=== PATIENT | female | born 1995 | race Caucasian/White ===

== ENCOUNTER 2023-01-26 18:10 | Emergency (ER) | payer OTHER, SELFPAY ==
[2023-01-26 18:18] VITALS: BP 110/78; PULSE 106; RESP 18; TEMP 36.9; O2SAT 98; BMI 29.9
--- NOTE | 2023-01-26 19:29 | ED_ITS ---
HPI - Neck Pain/Injury General Chief Complaint: Neck Pain/Injury Stated Complaint: NECK PAIN Time Seen by Provider: 01/26/23 19:29 Source: patient Mode of arrival: Wheelchair Limitations: physical limitation History of Present Illness HPI Narrative: patient states she woke up this AM with pain of her neck and inability to straighten her neck due to pain. No radicular symptoms. Head tilted to the left as position of comfort. No fever or chills. Denies injury or past history of the same MD complaint: Reports neck pain Related Data Allergies Allergy/AdvReac Type Severity Reaction Status Date / Time acyclovir Allergy Severe Hives Verified 01/26/23 18:22 ibuprofen [From Motrin] Allergy Severe Hives Verified 01/26/23 18:22 latex Allergy Severe Hives Verified 01/26/23 18:22 Review of Systems ROS Status of ROS 10 or more systems reviewed and unremarkable except as noted in history and below PFSH PFS Social History Smoking status: Current every day smoker Exam Constitutional Vital Signs - 24 hr 01/26/23 18:18 Temperature 98.5 F Pulse Rate [Monitor] 106 H Respiratory Rate 18 Blood Pressure [Left Arm] 110/78 Pulse Oximetry 98 Oxygen Delivery Method Room Air Common normals: no apparent distress and oriented x3 Other: head tilted down to the left as position of comfort. increased pain with attempt to straighten neck HENMT Common normals: normocephalic, head/scalp atraumatic and hearing grossly normal bilaterally Eye Common normals: PERRL, EOMs intact bilaterally and conjunctivae normal Neck & C-Spine Other: right paracervical and upper thoracic para thoracic muscle tenderness. limited ROM of neck due to pain Respiratory Common normals: normal respiratory effort, no retractions, no use of accessory muscles and clear to auscultation bilaterally Cardio Common normals: no JVD, regular rate, regular rhythm, S1 normal heart sound and S2 normal heart sound GI Common normals: Normal to inspection, nondistended, normoactive bowel sounds present, soft to palpation and non-tender Extremity Common normals: normal to inspection, full ROM, normal capillary refill and no joint enlargement Neuro Common normals: oriented x3, CN's II-XII intact bilaterally, moves all extremities and no focal motor deficits Psych Appearance: grossly normal Course Vital Signs Vital signs: Vital Signs Temperature 98.5 F 01/26/23 18:18 Pulse Rate 106 H 01/26/23 18:18 Respiratory Rate 18 01/26/23 18:18 Blood Pressure 110/78 01/26/23 18:18 Pulse Oximetry 98 01/26/23 18:18 Oxygen Delivery Method Room Air 01/26/23 18:18 Temperature 98.5 F 01/26/23 18:18 Pulse Rate 106 H 01/26/23 18:18 Respiratory Rate 18 01/26/23 18:18 Blood Pressure 110/78 01/26/23 18:18 Pulse Oximetry 98 01/26/23 18:18 Oxygen Delivery Method Room Air 01/26/23 18:18 MDM - Neck Pain/Injury MDM Narrative Medical decision making narrative: patient presents with Torticollis. Woke up this AM with neck pain and head tilted to the left as position of comfort. Treated in the ER and was able to raise her head to midline prior to discharge. Discharged with soft collar and prescription for [place] and Norflex and advised to follow up with her doctor Lab Data Labs: Lab Results 01/26/23 Range/Units 20:05 WBC 8.1 (4.0-11.0) 10^3/uL RBC 5.02 (4.20-5.40) 10^6/uL Hgb 14.3 (12.0-16.0) g/dL Hct 43.2 (36.0-48.0) % MCV 86.1 (81.0-99.0) fL MCH 28.5 (26.7-34.0) pg MCHC 33.1 (29.9-35.2) g/dL RDW 12.5 (11.0-15.0) % Plt Count 192 (150-450) 10^3/uL MPV 10.6 (9.5-13.5) fL Neut % (Auto) 58.8 (43.0-75.0) % Lymph % (Auto) 30.3 (20.5-60.0) % [place] % (Auto) 7.4 (1.7-12.0) % Eos % (Auto) 2.9 (0.9-7.0) % Baso % (Auto) 0.4 (0.2-2.0) % Neut # (Auto) 4.8 (1.4-6.5) 10^3/uL Lymph # (Auto) 2.5 (1.2-3.8) 10^3/uL [place] # (Auto) 0.6 (0.3-0.8) 10^3/uL Eos # (Auto) 0.2 (0.0-0.7) 10^3/uL Baso # (Auto) 0.0 (0.0-0.1) 10^3/uL Abs Immat Gran (auto) 0.02 (0.00-0.03) 10^3/uL Imm/Tot Granulo (auto) 0.2 (0.0-0.5) % ESR 16 (<=20) mm/hr Sodium 140 (136-145) mmol/L Potassium 3.9 (3.5-5.1) mmol/L Chloride 105 (98-107) mmol/L Carbon Dioxide 27.8 (21.0-32.0) mmol/L Anion Gap 11.1 BUN 10.0 (7.0-18.0) mg/dL Creatinine 0.88 (0.55-1.02) mg/dL Est GFR ( Amer) >60 (>=60) Est GFR (Non-Af Amer) >60 (>=60) BUN/Creatinine Ratio 11.4 Glucose 92 (74-106) mg/dL Calcium 9.0 (8.5-10.1) mg/dL C-Reactive Protein <1.0 (<=1.0) mg/dL Discharge Plan Discharge Chief Complaint: Neck Pain/Injury Clinical Impression: Acute torticollis Instructions: Spasmodic Torticollis (ED) Additional Instructions: follow up with your doctor next week Stand Alone Forms: Portal Instructions Referrals: Physician,Non-Staff, MD [Primary Care Provider] - 1 week
[2023-01-26] MEDS: LORAZEPAM 2 MG/ML 1 ML VIAL 1 MG IV (20:04)
[2023-01-26] MEDS: ORPHENADRINE 60 MG/ 2 ML VIAL IV (20:05)
[2023-01-26] MEDS: FENTANYL CITRATE/PF 100 MCG/2 ML VIAL IV (20:05)
[2023-01-26 20:16] LABS: Basophils Percent Auto 0.4 % (0.2-2.0); Eosinophils Absolute Auto 0.2 10^3/uL (0.0-0.7); Eosinophils Percent Auto 2.9 % (0.9-7.0); Hematocrit 43.2 % (36.0-48.0); Hemoglobin 14.3 g/dL (12.0-16.0); Immature Granulocytes Abs Auto 0.02 10^3/uL (0.00-0.03); Immature Granulocytes Pct Auto 0.2 % (0.0-0.5); Lymphocytes Absolute Auto 2.5 10^3/uL (1.2-3.8); Lymphocytes Percent Auto 30.3 % (20.5-60.0); Mean Corpuscular HGB Conc 33.1 g/dL (29.9-35.2); Mean Corpuscular Hemoglobin 28.5 pg (26.7-34.0); Mean Corpuscular Volume 86.1 fL (81.0-99.0); Mean Platelet Volume 10.6 fL (9.5-13.5); Monocytes Absolute Auto 0.6 10^3/uL (0.3-0.8); Monocytes Percent Auto 7.4 % (1.7-12.0); Neutrophils Absolute Auto 4.8 10^3/uL (1.4-6.5); Neutrophils Percent Auto 58.8 % (43.0-75.0); Platelet Count 192 10^3/uL (150-450); Red Blood Count 5.02 10^6/uL (4.20-5.40); Red Cell Distribution Width 12.5 % (11.0-15.0); White Blood Count 8.1 10^3/uL (4.0-11.0)
[2023-01-26 20:23] LABS: Erythrocyte Sedimentation Rate 16 mm/hr (<=20)
[2023-01-26 20:30] LABS: Anion Gap 11.1; BUN Creatinine Ratio 11.4; Carbon Dioxide 27.8 mmol/L (21.0-32.0); Chloride 105 mmol/L (98-107); Estimated GFR (African America >60 (>=60); Estimated GFR (Non-African Ame >60 (>=60); Glucose 92 mg/dL (74-106); Potassium 3.9 mmol/L (3.5-5.1); Sodium 140 mmol/L (136-145)
[2023-01-26 20:33] LABS: C Reactive Protein <1.0 mg/dL (<=1.0)
[2023-01-26] MEDS: HYDROCODONE/ACETAMINOPHEN 5-325 MG TABLET 4 TAB PO (22:12)
[2023-01-26] MEDS: ORPHENADRINE CITRATE 100 MG TABLET.ER PO (22:13)
== END 2023-01-26 22:50 | disposition home or self-care (01) ==
PROVIDERS: Emergency Provider Internal Medicine
DX: M43.6 Torticollis (principal); F17.210 Nicotine dependence, cigarettes, uncomplicated
CPT/HCPCS: 36415; 80048; 85025; 85652; 86140; 96374; 96375; 99284

== ENCOUNTER 2023-03-25 16:00 | Emergency (ER) | payer OTHER, SELFPAY ==
[2023-03-25 16:16] VITALS: BP 119/82; PULSE 139; RESP 18; TEMP 36.8; O2SAT 99; BMI 30.1
--- NOTE | 2023-03-25 17:00 | ED.ABDPAIN1 ---
Documented by User: Ghislaine Medina 03/25/23 21:25 HPI - Abdominal Pain General Chief Complaint: Abdominal Pain Stated Complaint: right side abdominal pain Time Seen by Provider: 03/25/23 16:57 Source: patient Mode of arrival: Wheelchair Limitations: no limitations History of Present Illness HPI narrative: 27 year old female presents to the ED for RLQ pain, N/V. Onset was 3 days ago. Denies fever, chills, urinary sx, diarrhea, injury. Reports previous D and C, tubal ligation surgeries. Rates her pain 10/10 at this time. Denies chance of . MD elicited complaint: Reports abdominal pain Related Data Previous Rx's Medication Instructions Recorded hydrocodone 5 mg-acetaminophen 325 1 tab PO Q8H PRN pain 3 days #9 03/25/23 mg tablet tabs naproxen 500 mg tablet (Naprosyn) 500 mg PO BID PRN pain 5 days #10 03/25/23 tabs Allergies Allergy/AdvReac Type Severity Reaction Status Date / Time acyclovir Allergy Severe Hives Verified 03/25/23 16:16 ibuprofen [From Motrin] Allergy Severe Hives Verified 03/25/23 16:16 latex Allergy Severe Hives Verified 03/25/23 16:16 Review of Systems ROS Constitutional Denies: fever or chills Ears, nose, mouth, and throat Denies: throat pain Cardiovascular Denies: chest pain Respiratory Denies: shortness of breath or cough Gastrointestinal Reports: abdominal pain, nausea and vomiting; Denies: diarrhea or constipation Genitourinary Denies: painful urination, urinary frequency, urinary urgency, vaginal bleeding or vaginal discharge Neurological Reports: headache PFSH PFSH Social History Smoking status: Current every day smoker Exam Constitutional Vital Signs, click to edit/add: Last Vital Signs Temp 98.3 F 03/25/23 16:16 Pulse 95 H 03/25/23 20:48 Resp 16 03/25/23 20:48 BP 122/85 03/25/23 21:29 Pulse Ox 98 03/25/23 20:48 O2 Del Method Room Air 03/25/23 20:48 Common normals: oriented x3 and alert General appearance: cooperative; not comfortable and not ill appearing Orientation/consciousness: Yes awake HENMT Mouth: oral and palatal mucosa normal and lip normal Neck & C-Spine Common normals: supple Chest Chest: symmetrical chest wall rise Respiratory Common normals: normal respiratory effort Effort & inspection: able to speak in complete sentences and symmetric chest movement Cardio Common normals: regular rhythm Rate: tachycardic GI Common normals: soft to palpation Inspection: normal to inspection Auscultation: normoactive bowel sounds Palpation: soft and tender Details: RLQ and suprapubic Extremity Common normals: normal capillary refill Course Vital Signs Vital signs: Vital Signs Temperature 98.3 F 03/25/23 16:16 Pulse Rate 139 H 03/25/23 16:16 Respiratory Rate 18 03/25/23 16:16 Blood Pressure 119/82 03/25/23 16:16 Pulse Oximetry 99 03/25/23 16:16 Oxygen Delivery Method Room Air 03/25/23 16:16 Temperature 98.3 F 03/25/23 16:16 Pulse Rate 95 H 03/25/23 20:48 Respiratory Rate 16 03/25/23 20:48 Blood Pressure 122/85 03/25/23 21:29 Pulse Oximetry 98 03/25/23 20:48 Oxygen Delivery Method Room Air 03/25/23 20:48 MDM - Abdominal Pain MDM Narrative Medical decision making narrative: The patient was given medication with improvement. She was tolerating oral fluids here in the ED. Findings were discussed with the patient. She reported she tolerates Aleve, but not Motrin. OARRS was reviewed. Prescriptions were provided for Naprosyn and norco. She has an [facility] appointment scheduled on 03/27/23. She was encouraged to follow up as scheduled. Return precautions were discussed. Differential Diagnosis Differential diagnosis: Likely abdominal pain, acute appendicitis, calculus of kidney, constipation, gastroenteritis and small bowel obstruction Medical Records Attestation: I reviewed the patient's medical records. Lab Data Attestation: I reviewed the patient's lab results. Labs: Lab Results 03/25/23 03/25/23 Range/Units 17:10 19:05 WBC 5.7 (4.0-11.0) 10^3/uL RBC 5.28 (4.20-5.40) 10^6/uL Hgb 15.1 (12.0-16.0) g/dL Hct 44.9 (36.0-48.0) % MCV 85.0 (81.0-99.0) fL MCH 28.6 (26.7-34.0) pg MCHC 33.6 (29.9-35.2) g/dL RDW 12.5 (11.0-15.0) % Plt Count 180 (150-450) 10^3/uL MPV 10.2 (9.5-13.5) fL Neut % (Auto) 52.1 (43.0-75.0) % Lymph % (Auto) 36.3 (20.5-60.0) % [place] % (Auto) 7.9 (1.7-12.0) % Eos % (Auto) 2.8 (0.9-7.0) % Baso % (Auto) 0.5 (0.2-2.0) % Neut # (Auto) 3.0 (1.4-6.5) 10^3/uL Lymph # (Auto) 2.1 (1.2-3.8) 10^3/uL [place] # (Auto) 0.5 (0.3-0.8) 10^3/uL Eos # (Auto) 0.2 (0.0-0.7) 10^3/uL Baso # (Auto) 0.0 (0.0-0.1) 10^3/uL Abs Immat Gran (auto) 0.02 (0.00-0.03) 10^3/uL Imm/Tot Granulo (auto) 0.4 (0.0-0.5) % Sodium 141 (136-145) mmol/L Potassium 3.7 (3.5-5.1) mmol/L Chloride 105 (98-107) mmol/L Carbon Dioxide 25.1 (21.0-32.0) mmol/L Anion Gap 14.6 BUN 11.0 (7.0-18.0) mg/dL Creatinine 1.01 (0.55-1.02) mg/dL Est GFR ( Amer) >60 (>=60) Est GFR (Non-Af Amer) >60 (>=60) BUN/Creatinine Ratio 10.9 Glucose 89 (74-106) mg/dL Lactate 1.7 (0.4-2.0) mmol/L Calcium 8.5 (8.5-10.1) mg/dL Total Bilirubin 0.2 (0.2-1.0) mg/dL Direct Bilirubin 0.1 (0.0-0.2) mg/dL AST 27 (15-37) U/L ALT 31 (14-59) U/L Alkaline Phosphatase 82 (46-116) U/L Total Protein 7.5 (6.4-8.2) g/dL Albumin 4.0 (3.4-5.0) g/dL Globulin 3.5 g/dL Albumin/Globulin Ratio 1.1 Lipase 173.0 (73.0-393.0) U/L Serum HCG, Qual Negative (NEGATIVE) Urine Color Yellow (YELLOW) Urine Clarity Clear (CLEAR) Urine pH 6.0 (5.0-9.0) Ur Specific [place] <=1.005 A (1.005-1.025) Urine Protein Negative (NEG/TRACE) mg/dL Urine Glucose (UA) Negative (NEGATIVE) mg/dL Urine Ketones Negative (NEGATIVE) mg/dL Urine Occult Blood Negative (NEGATIVE) Urine Nitrite Negative (NEGATIVE) Urine Bilirubin Negative (NEGATIVE) Urine Urobilinogen 0.2 (0.2-1.0) EU/dL Ur Leukocyte Esterase Negative (NEGATIVE) Imaging Data CT scan - abdomen: Attestation: I have reviewed the pertinent imaging results. Radiologist's impression: Procedure: CT abdomen pelvis w con EXAM: CT abdomen pelvis w con HISTORY: RLQ pain COMPARISON: None. TECHNIQUE: Axial CT imaging was performed through the abdomen and pelvis with intravenous contrast. Multiplanar reformats were performed. Dose reduction techniques were achieved by using automated exposure control and/or adjustment of mA and/or kV according to patient size and/or use of iterative reconstruction technique. FINDINGS: Lung bases: Lung bases are clear. No pleural effusion. GI upper: Unremarkable. Liver: Normal size and contour. A subcentimeter low density focus is seen in the anterior segment of the right hepatic lobe. This is too small to accurately assess, but likely is a cyst. Gallbladder: No significant abnormality. No cholelithiasis. Biliary system: No intra or extrahepatic biliary ductal dilatation. Pancreas: Unremarkable. Spleen: Normal size. Adrenal glands: Normal adrenal glands. Kidneys/ureters: Normal contours. No hydronephrosis or visible mass. No nephrolithiasis. Both ureters are normal in caliber and course to the bladder. Vessels: No aneurysm. Retroperitoneum: No lymphadenopathy. Small bowel: No wall thickening or dilatation. Colon: No wall thickening or dilatation. Appendix: Appendix is identified with normal appearance. Peritoneal cavity: No free fluid or pneumoperitoneum. Lower : Unremarkable. Bones: No acute bony abnormality. Soft tissues: No acute finding. Additional findings: None. CT/CT abdomen pelvis w con IMPRESSION: No acute intra-abdominal or pelvic process is identified. The appendix is visualized and is normal in appearance. Electronically authenticated by: Estiven LAMBERT Date: 03/25/2023 19:04 US- pelvis: Attestation: I have reviewed the pertinent imaging results. Radiologist's impression: Procedure: US pelvis transvaginal Initial impression only. US/US pelvis transvaginal IMPRESSION: 1. The ovaries were not visualized bilaterally and therefore the study is nondiagnostic for ovarian torsion. Of note, on the CT the ovaries were somewhat high in location and a follow-up transabdominal ultrasound may be considered to visualize the ovaries. Note is made on CT of 8 probable 13 mm dominant right ovarian follicle. 2. No other significant abnormality. Electronically authenticated by: JOANA RANDLE Date: 03/25/2023 20:24 Discharge Plan Discharge Chief Complaint: Abdominal Pain Clinical Impression: Ovarian cyst, Abdominal pain Patient Disposition: Home, Self-Care Time of Disposition Decision: 21:14 Condition: Good Mode of Transportation: Private Vehicle Prescriptions / Home Meds: New naproxen [Naprosyn] 500 mg tablet 500 mg PO BID PRN (Reason: pain) 5 Days Qty: 10 0RF hydrocodone-acetaminophen 5-325 mg tablet 1 tab PO Q8H PRN (Reason: pain) 3 Days Qty: 9 0RF Instructions: Ovarian Cyst (ED), Abdominal Pain (ED) Additional Instructions: Follow up with your [facility] later this week as scheduled. Return to the ER if your condition worsens. Stand Alone Forms: Portal Instructions Referrals: Physician,Non-Staff, MD [Primary Care Provider] - 1 week Discharge Date/Time: 03/25/23 21:29 Documented by User: Yanni Post MD 03/27/23 08:02 HPI - Abdominal Pain General Chief Complaint: Abdominal Pain Stated Complaint: right side abdominal pain Time Seen by Provider: 03/25/23 16:57 Related Data Previous Rx's Medication Instructions Recorded hydrocodone 5 mg-acetaminophen 325 1 tab PO Q8H PRN pain 3 days #9 03/25/23 mg tablet tabs naproxen 500 mg tablet (Naprosyn) 500 mg PO BID PRN pain 5 days #10 03/25/23 tabs Allergies Allergy/AdvReac Type Severity Reaction Status Date / Time acyclovir Allergy Severe Hives Verified 03/25/23 16:16 ibuprofen [From Motrin] Allergy Severe Hives Verified 03/25/23 16:16 latex Allergy Severe Hives Verified 03/25/23 16:16 PFSH PFSH Social History Smoking status: Current every day smoker Exam Constitutional Vital Signs, click to edit/add: Last Vital Signs Temp 98.3 F 03/25/23 16:16 Pulse 95 H 03/25/23 20:48 Resp 16 03/25/23 20:48 BP 122/85 03/25/23 21:29 Pulse Ox 98 03/25/23 20:48 O2 Del Method Room Air 03/25/23 20:48 Course Vital Signs Vital signs: Vital Signs Temperature 98.3 F 03/25/23 16:16 Pulse Rate 139 H 03/25/23 16:16 Respiratory Rate 18 03/25/23 16:16 Blood Pressure 119/82 03/25/23 16:16 Pulse Oximetry 99 03/25/23 16:16 Oxygen Delivery Method Room Air 03/25/23 16:16 Temperature 98.3 F 03/25/23 16:16 Pulse Rate 95 H 03/25/23 20:48 Respiratory Rate 16 03/25/23 20:48 Blood Pressure 122/85 03/25/23 21:29 Pulse Oximetry 98 03/25/23 20:48 Oxygen Delivery Method Room Air 03/25/23 20:48 MDM - Abdominal Pain MDM Narrative Medical decision making narrative: The patient was given medication with improvement. She was tolerating oral fluids here in the ED. Findings were discussed with the patient. She reported she tolerates Aleve, but not Motrin. OARRS was reviewed. Prescriptions were provided for Naprosyn and norco. She has an [facility] appointment scheduled on 03/27/23. She was encouraged to follow up as scheduled. Return precautions were discussed. Attending physician attestation I have reviewed the mid-level documentation, agree with the documentation, medical decision making and treatment plan as outlined by the mid-level provider. Lab Data Labs: Lab Results 03/25/23 03/25/23 Range/Units 17:10 19:05 WBC 5.7 (4.0-11.0) 10^3/uL RBC 5.28 (4.20-5.40) 10^6/uL Hgb 15.1 (12.0-16.0) g/dL Hct 44.9 (36.0-48.0) % MCV 85.0 (81.0-99.0) fL MCH 28.6 (26.7-34.0) pg MCHC 33.6 (29.9-35.2) g/dL RDW 12.5 (11.0-15.0) % Plt Count 180 (150-450) 10^3/uL MPV 10.2 (9.5-13.5) fL Neut % (Auto) 52.1 (43.0-75.0) % Lymph % (Auto) 36.3 (20.5-60.0) % [place] % (Auto) 7.9 (1.7-12.0) % Eos % (Auto) 2.8 (0.9-7.0) % Baso % (Auto) 0.5 (0.2-2.0) % Neut # (Auto) 3.0 (1.4-6.5) 10^3/uL Lymph # (Auto) 2.1 (1.2-3.8) 10^3/uL [place] # (Auto) 0.5 (0.3-0.8) 10^3/uL Eos # (Auto) 0.2 (0.0-0.7) 10^3/uL Baso # (Auto) 0.0 (0.0-0.1) 10^3/uL Abs Immat Gran (auto) 0.02 (0.00-0.03) 10^3/uL Imm/Tot Granulo (auto) 0.4 (0.0-0.5) % Sodium 141 (136-145) mmol/L Potassium 3.7 (3.5-5.1) mmol/L Chloride 105 (98-107) mmol/L Carbon Dioxide 25.1 (21.0-32.0) mmol/L Anion Gap 14.6 BUN 11.0 (7.0-18.0) mg/dL Creatinine 1.01 (0.55-1.02) mg/dL Est GFR ( Amer) >60 (>=60) Est GFR (Non-Af Amer) >60 (>=60) BUN/Creatinine Ratio 10.9 Glucose 89 (74-106) mg/dL Lactate 1.7 (0.4-2.0) mmol/L Calcium 8.5 (8.5-10.1) mg/dL Total Bilirubin 0.2 (0.2-1.0) mg/dL Direct Bilirubin 0.1 (0.0-0.2) mg/dL AST 27 (15-37) U/L ALT 31 (14-59) U/L Alkaline Phosphatase 82 (46-116) U/L Total Protein 7.5 (6.4-8.2) g/dL Albumin 4.0 (3.4-5.0) g/dL Globulin 3.5 g/dL Albumin/Globulin Ratio 1.1 Lipase 173.0 (73.0-393.0) U/L Serum HCG, Qual Negative (NEGATIVE) Urine Color Yellow (YELLOW) Urine Clarity Clear (CLEAR) Urine pH 6.0 (5.0-9.0) Ur Specific [place] <=1.005 A (1.005-1.025) Urine Protein Negative (NEG/TRACE) mg/dL Urine Glucose (UA) Negative (NEGATIVE) mg/dL Urine Ketones Negative (NEGATIVE) mg/dL Urine Occult Blood Negative (NEGATIVE) Urine Nitrite Negative (NEGATIVE) Urine Bilirubin Negative (NEGATIVE) Urine Urobilinogen 0.2 (0.2-1.0) EU/dL Ur Leukocyte Esterase Negative (NEGATIVE) Discharge Plan Discharge Chief Complaint: Abdominal Pain Clinical Impression: Ovarian cyst, Abdominal pain Patient Disposition: Home, Self-Care Time of Disposition Decision: 21:14 Condition: Good Mode of Transportation: Private Vehicle Prescriptions / Home Meds: New naproxen [Naprosyn] 500 mg tablet 500 mg PO BID PRN (Reason: pain) 5 Days Qty: 10 0RF hydrocodone-acetaminophen 5-325 mg tablet 1 tab PO Q8H PRN (Reason: pain) 3 Days Qty: 9 0RF Instructions: Ovarian Cyst (ED), Abdominal Pain (ED) Additional Instructions: Follow up with your [facility] later this week as scheduled. Return to the ER if your condition worsens. Stand Alone Forms: Portal Instructions Referrals: Physician,Non-Staff, MD [Primary Care Provider] - 1 week Discharge Date/Time: 03/25/23 21:29
[2023-03-25] MEDS: ONDANSETRON PF 4 MG/2 ML VIAL IV (17:09)
[2023-03-25] MEDS: MORPHINE SULFATE 2 MG/ML SYRINGE IV ×2 (17:09→19:23)
[2023-03-25] MEDS: 0.9 % SODIUM CHLORIDE 1,000 ML 1000 ML IV (17:10)
[2023-03-25 17:35] LABS: HCG Qualitative NEGATIVE (NEGATIVE)
[2023-03-25 17:39] LABS: Lactate/Lactic Acid 1.7 mmol/L (0.4-2.0)
[2023-03-25 17:52] LABS: Basophils Percent Auto 0.5 % (0.2-2.0); Eosinophils Absolute Auto 0.2 10^3/uL (0.0-0.7); Eosinophils Percent Auto 2.8 % (0.9-7.0); Hematocrit 44.9 % (36.0-48.0); Hemoglobin 15.1 g/dL (12.0-16.0); Immature Granulocytes Abs Auto 0.02 10^3/uL (0.00-0.03); Immature Granulocytes Pct Auto 0.4 % (0.0-0.5); Lymphocytes Absolute Auto 2.1 10^3/uL (1.2-3.8); Lymphocytes Percent Auto 36.3 % (20.5-60.0); Mean Corpuscular HGB Conc 33.6 g/dL (29.9-35.2); Mean Corpuscular Hemoglobin 28.6 pg (26.7-34.0); Mean Platelet Volume 10.2 fL (9.5-13.5); Monocytes Absolute Auto 0.5 10^3/uL (0.3-0.8); Monocytes Percent Auto 7.9 % (1.7-12.0); Neutrophils Percent Auto 52.1 % (43.0-75.0); Platelet Count 180 10^3/uL (150-450); Red Blood Count 5.28 10^6/uL (4.20-5.40); Red Cell Distribution Width 12.5 % (11.0-15.0); White Blood Count 5.7 10^3/uL (4.0-11.0)
[2023-03-25 17:55] VITALS: BP 124/78; PULSE 107; RESP 18; O2SAT 98
[2023-03-25 18:06] LABS: Alanine Aminotransferase 31 U/L (14-59); Albumin Globulin Ratio 1.1; Alkaline Phosphatase 82 U/L (46-116); Anion Gap 14.6; Aspartate Amino Transferase 27 U/L (15-37); BUN Creatinine Ratio 10.9; Bilirubin Direct 0.1 mg/dL (0.0-0.2); Bilirubin Total 0.2 mg/dL (0.2-1.0); Calcium 8.5 mg/dL (8.5-10.1); Carbon Dioxide 25.1 mmol/L (21.0-32.0); Chloride 105 mmol/L (98-107); Estimated GFR (African America >60 (>=60); Estimated GFR (Non-African Ame >60 (>=60); Globulin 3.5 g/dL; Glucose 89 mg/dL (74-106); Potassium 3.7 mmol/L (3.5-5.1); Sodium 141 mmol/L (136-145); Total Protein 7.5 g/dL (6.4-8.2)
--- NOTE | 2023-03-25 18:26 | CT_ITS ---
The [address] [address] Patient Name: SARAH GARCIA MRN: [id number] date: 1995 Sex: F Assigned Patient Location: ER Current Patient Location: ER Accession/Order Number: [id number] Exam Date: 03/25/2023 18:16 Report Date: 03/25/2023 19:04 At the request of: RAMANA CAMPUZANO Procedure: CT abdomen pelvis w con EXAM: CT abdomen pelvis w con HISTORY: RLQ pain COMPARISON: None. TECHNIQUE: Axial CT imaging was performed through the abdomen and pelvis with intravenous contrast. Multiplanar reformats were performed. Dose reduction techniques were achieved by using automated exposure control and/or adjustment of mA and/or kV according to patient size and/or use of iterative reconstruction technique. FINDINGS: Lung bases: Lung bases are clear. No pleural effusion. GI upper: Unremarkable. Liver: Normal size and contour. A subcentimeter low density focus is seen in the anterior segment of the right hepatic lobe. This is too small to accurately assess, but likely is a cyst. Gallbladder: No significant abnormality. No cholelithiasis. Biliary system: No intra or extrahepatic biliary ductal dilatation. Pancreas: Unremarkable. Spleen: Normal size. Adrenal glands: Normal adrenal glands. Kidneys/ureters: Normal contours. No hydronephrosis or visible mass. No nephrolithiasis. Both ureters are normal in caliber and course to the bladder. Vessels: No aneurysm. Retroperitoneum: No lymphadenopathy. Small bowel: No wall thickening or dilatation. Colon: No wall thickening or dilatation. Appendix: Appendix is identified with normal appearance. Peritoneal cavity: No free fluid or pneumoperitoneum. Lower : Unremarkable. Bones: No acute bony abnormality. Soft tissues: No acute finding. Additional findings: None. CT/CT abdomen pelvis w con IMPRESSION: No acute intra-abdominal or pelvic process is identified. The appendix is visualized and is normal in appearance. Electronically authenticated by: Estiven LAMBERT Date: 03/25/2023 19:04
--- NOTE | 2023-03-25 19:10 | US_ITS ---
The [address] [address] Patient Name: SARAH GARCIA MRN: [id number] date: 1995 Sex: F Assigned Patient Location: ER Current Patient Location: ER Accession/Order Number: [id number] Exam Date: 03/25/2023 19:20 Report Date: 03/25/2023 20:31 At the request of: RAMANA CAMPUZANO Procedure: US pelvis transvaginal EXAM: US pelvis transvaginal HISTORY: R/o torsion, acute right lower quadrant pain for 3 days, nausea and vomiting. COMPARISON: CT abdomen and pelvis 03/25/2023. TECHNIQUE: Transvaginal ultrasound was performed of the pelvis. FINDINGS: The uterus measures 6.8 x 3.4 x 4.7 cm in size and appears unremarkable. Endometrium has normal thickness at 4 mm. A small nabothian cyst is seen within the cervix. The ovaries were not visualized bilaterally. No free fluid is seen. US/US pelvis transvaginal IMPRESSION: 1. The ovaries were not visualized bilaterally and therefore the study is nondiagnostic for ovarian torsion. Of note, on the CT the ovaries were somewhat high in location and a follow-up transabdominal ultrasound may be considered to visualize the ovaries. Note is made on the CT of a probable 13 mm dominant right ovarian follicle. 2. No other significant abnormality. Electronically authenticated by: JOANA RANDLE Date: 03/25/2023 20:31
[2023-03-25 19:17] LABS: Bilirubin Urine NEGATIVE (NEGATIVE); Blood Urine NEGATIVE (NEGATIVE); Clarity Urine CLEAR (CLEAR); Color Urine YELLOW (YELLOW); Glucose Urine UA NEGATIVE (NEGATIVE); Ketones Urine NEGATIVE (NEGATIVE); Leukocyte Esterase Urine NEGATIVE (NEGATIVE); Nitrite Urine NEGATIVE (NEGATIVE); Protein Urine NEGATIVE (NEG/TRACE); Specific Gravity Urine <=1.005 (1.005-1.025); Urobilinogen Urine 0.2 EU/dL (0.2-1.0)
[2023-03-25 19:19] LABS: Urine Microscopic Indicated NO
[2023-03-25 20:48] VITALS: BP 128/86; PULSE 95; RESP 16; O2SAT 98
[2023-03-25] MEDS: KETOROLAC TROMETHAMINE 30 MG/ML VIAL 15 MG IVP (20:55)
[2023-03-25 21:29] VITALS: BP 122/85
== END 2023-03-25 21:29 | disposition home or self-care (01) ==
PROVIDERS: Emergency Provider Emergency Medicine
DX: N83.209 Unspecified ovarian cyst, unspecified side (principal); R10.9 Unspecified abdominal pain; F17.210 Nicotine dependence, cigarettes, uncomplicated
CPT/HCPCS: 36415; 74177; 76830; 80053; 80076; 81003; 82248; 83605; 83690; 84703; 85025; 96361; 96374; 96375; 96376; 99285; Q9967

== ENCOUNTER 2023-09-28 14:20 | Emergency (ER) | payer OTHER, SELFPAY ==
[2023-09-28 14:25] VITALS: BP 137/83; PULSE 88; RESP 18; TEMP 37; O2SAT 98; BMI 27.6
--- NOTE | 2023-09-28 15:12 | ED.SKABFB1 ---
HPI - Skin/Abscess/Foreign Bdy General Chief complaint: Skin/Abscess/Foreign Body Stated complaint: ITCHINESS/BLOTCHY SPOTS L SIDE Time Seen by Provider: 09/28/23 14:26 Source: patient Mode of arrival: walk-in History of Present Illness HPI narrative: 27-year-old female presents for painful rash. Its on her left lower abdomen near her thigh. It has been there for several days. It started by itching and then the rash came out and it is a gsio-raq-spbjvqm and burning pain. She has never had this before. Its only in a localized area, no where else on her body. No use of new detergents or soaps and she has not been on any new medications. Its continuous. Related Data Previous Rx's Medication Instructions Recorded hydrocodone 5 mg-acetaminophen 325 1 tab PO Q6H PRN pain 5 days #20 09/28/23 mg tablet tabs lidocaine 5 % topical patch 1 patch topical DAILY PRN pain #15 09/28/23 (Lidoderm) ea Allergies Allergy/AdvReac Type Severity Reaction Status Date / Time acyclovir Allergy Severe Hives Verified 03/25/23 16:16 ibuprofen [From Motrin] Allergy Severe Hives Verified 03/25/23 16:16 latex Allergy Severe Hives Verified 03/25/23 16:16 Review of Systems ROS Narrative A ten point review of systems is negative except as noted above. PFSH PFS Social History Smoking status: Current every day smoker Exam Narrative Exam Narrative: Nurses note and vital signs reviewed and patient is not hypoxic. General: The patient appears well and in no apparent distress. Patient is resting comfortably on cart. Skin: Warm, dry, no pallor noted. There is erythematous raised rash on the left side in the L1 distribution. It is nowhere else on her body. No open area present. Head: Normocephalic, atraumatic Eye: Normal conjunctiva, no drainage Ears, Nose, Mouth, and Throat: oral mucosa is moist. Nares patent. Cardiovascular: Regular Rate and Rhythm Respiratory: Patient is in no distress, no accessory muscle use, lungs are clear to auscultation, no wheezing, rales or rhonchi Back: non-tender GI: Soft and nontender Musculoskeletal: The patient has no evidence of calf tenderness, no pitting edema, symmetrical pulses noted bilaterally Neurological: A&O, normal speech Psychiatric: Cooperative Constitutional Vital Signs, click to edit/add: Last Vital Signs Temp 98.6 F 09/28/23 14:25 Pulse 88 09/28/23 14:25 Resp 18 09/28/23 14:25 BP 137/83 09/28/23 14:25 Pulse Ox 98 09/28/23 14:25 O2 Del Method Room Air 09/28/23 14:25 Course Vital Signs Vital signs: Vital Signs Temperature 98.6 F 09/28/23 14:25 Pulse Rate 88 09/28/23 14:25 Respiratory Rate 18 09/28/23 14:25 Blood Pressure 137/83 09/28/23 14:25 Pulse Oximetry 98 09/28/23 14:25 Oxygen Delivery Method Room Air 09/28/23 14:25 Temperature 98.6 F 09/28/23 14:25 Pulse Rate 88 09/28/23 14:25 Respiratory Rate 18 09/28/23 14:25 Blood Pressure 137/83 09/28/23 14:25 Pulse Oximetry 98 09/28/23 14:25 Oxygen Delivery Method Room Air 09/28/23 14:25 MDM - Skin/Abscess/Foreign Bdy MDM Narrative Medical decision making narrative: My clinical impression is that the patient has shingles. She is allergic to Zovirax and does not want to take any related medications such as Famvir or Valtrex. She had hives all over her body when she took Zovirax previously. Treatment diagnosis and follow-up were discussed with the patient. She will be prescribed pain medication. Differential Diagnosis Differential diagnosis: Likely abscess of skin or subcutaneous tissue, urticaria, herpes zoster, cellulitis, insect bites and contact dermatitis Discharge Plan Discharge Chief Complaint: Skin/Abscess/Foreign Body Clinical Impression: Herpes zoster Patient Disposition: Home, Self-Care Time of Disposition Decision: 15:07 Condition: Good Mode of Transportation: Private Vehicle Prescriptions / Home Meds: New lidocaine [Lidoderm] 5 % adhesive patch,medicated 1 patch topical DAILY PRN (Reason: pain) Qty: 15 0RF Rx Instructions: leave near most painful area for up to 12 hrs; do not apply over the rash hydrocodone-acetaminophen 5-325 mg tablet 1 tab PO Q6H PRN (Reason: pain) 5 Days Qty: 20 0RF Instructions: Shingles (ED) Stand Alone Forms: Portal Instructions Referrals: Physician,Non-Staff, [Primary Care Provider] - 1 week
== END 2023-09-28 15:16 | disposition home or self-care (01) ==
PROVIDERS: Emergency Provider Emergency Medicine
DX: B02.9 Zoster without complications (principal); F17.210 Nicotine dependence, cigarettes, uncomplicated
CPT/HCPCS: 99284

== ENCOUNTER 2024-06-11 16:57 | Emergency (ER) | payer SELFPAY ==
[2024-06-11 17:02] VITALS: BP 177/108; PULSE 107; TEMP 36.8; O2SAT 100; BMI 33.0
--- NOTE | 2024-06-11 17:24 | CT_ITS ---
[address] [address] Patient Name: SARAH GARCIA MRN: [id number] date: 1995 Sex: F Assigned Patient Location: ER Current Patient Location: ER Accession/Order Number: [id number] Exam Date: 06/11/2024 18:10 Report Date: 06/11/2024 20:24 At the request of: DEMETRIO ARTEAGA Procedure: CT abdomen pelvis w con Indication: Right lower quadrant pain. Nausea. Vomiting. Fever. Comparison: 03/25/2023 exam Procedure: Axial images were made from the diaphragms through the symphysis pubis. No oral contrast was given prior to scanning. 100 mL Omnipaque 300 Intravenous contrast was given. Dose reduction techniques were achieved by using automated exposure control and/or adjustment of mA and/or kV according to patient size and/or use of iterative reconstruction technique. Findings: Liver/Biliary System: A 9 mm hepatic cyst. No liver masses. No intra or extrahepatic biliary dilatation. No gallstones or cholecystitis. Pancreas/Spleen: No evidence of acute pancreatitis. Pancreatic duct is not dilated. No pancreatic masses. No splenomegaly or splenic lesions. Kidneys/Adrenals: Normal symmetrical nephrograms. No renal masses. No renal or ureteral stones are seen. No hydronephrosis or hydroureter bilaterally. No adrenal nodules. Aorta/Vessels: No evidence of aortic aneurysm. Patent IVC, renal veins, hepatic veins and portal venous system. Bowel/Fluid/Nodes: No bowel dilatation or bowel wall thickening. No evidence of bowel obstruction. Normal appendix. No ascites or fluid collections. No adenopathy. Lung bases: Clear. Other findings: No aggressive osseous lesions are seen. Pelvis: No pelvic masses or adenopathy. Unremarkable bladder. Small amount of free fluid in cul-de-sac, most likely physiological. A 1.9 cm right ovarian cyst, probably follicular cyst. Other Findings: No aggressive osseous lesions are seen. CT/CT abdomen pelvis w con Impression: 1. No evidence of acute abdominal or pelvic process. No CT findings to explain patient's abdominal pain. 2. Normal appendix. 3. A 9 mm hepatic cyst. A 1.9 cm right ovarian cyst, probably follicular cyst. Small amount of free fluid in cul-de-sac, probably physiological. Electronically authenticated by: GREGOR HENDRICKSON Date: 06/11/2024 20:24
--- NOTE | 2024-06-11 17:29 | ED.GENADUL1 ---
HPI HPI - General Adult General Chief complaint: Abdominal Pain Stated complaint: RIGHT ABDOMINAL PAIN, VOMITTING, NAUSEA, FEVER Time Seen by Provider: 06/11/24 17:01 Source: patient Mode of arrival: walk-in Limitations: no limitations History of Present Illness HPI narrative: Patient is a 28-year-old female who presents to the emergency department for evaluation of right lower quadrant pain present for the last 3 days. She denies any pain radiation although she feels some pain in the umbilicus as well. She reports intermittent fevers as high as 101.3 Fahrenheit today. She took Tylenol last at 2 PM. She states she is urinating without difficulty but today is feeling pressure with urination. She denies any cough or upper respiratory symptoms. No diarrhea. She reports multiple episodes of nausea and vomiting over the last 3 days. She has had a previous hysterectomy. She last ate at 9 AM. Related Data Previous Rx's ?Medication ?Instructions ?Recorded hydrocodone 5 mg-acetaminophen 325 1 tab PO Q6H PRN pain 5 days #20 09/28/23 mg tablet tabs lidocaine 5 % topical patch 1 patch topical DAILY PRN pain #15 09/28/23 (Lidoderm) ea ciprofloxacin HCl 500 mg tablet 500 mg PO Q12H #14 tabs 06/11/24 hydrocodone 5 mg-acetaminophen 325 1 tab PO Q6H PRN pain 2 days #8 06/11/24 mg tablet tabs ondansetron 4 mg disintegrating 4 mg PO Q6H PRN nausea and 06/11/24 tablet vomiting #12 tabs promethazine 25 mg tablet 25 mg PO Q6H PRN nausea and 06/11/24 vomiting #12 tabs Allergies Allergy/AdvReac Type Severity Reaction Status Date / Time acyclovir Allergy Severe Hives Verified 03/25/23 16:16 ibuprofen (From Motrin) Allergy Severe Hives Verified 03/25/23 16:16 latex Allergy Severe Hives Verified 03/25/23 16:16 Opioid HPI Opioid Management Most Recent Opioid Data: Last Pain Scale 7 06/11/24 18:39 06/11/24 Last OCT Pain Assessment 06/11/24 18:39 Review of Systems ROS Constitutional Reports: fever and chills Ears, nose, mouth, and throat Denies: throat pain or nasal congestion Cardiovascular Denies: chest pain Respiratory Denies: shortness of breath Gastrointestinal Reports: abdominal pain, nausea and vomiting; Denies: constipation Genitourinary Denies: painful urination Musculoskeletal Denies: back pain or neck pain Integumentary/Breast Denies: rash Neurological Denies: numbness in extremities or weakness in extremities Hematologic/Lymphatic Denies: easy bruising or easy bleeding [facility] Social History Smoking status: Current every day smoker Exam Narrative Exam Narrative: Gen.: Awake, alert, in no distress Head: Normocephalic, atraumatic ENT: Moist mucous membranes Respiratory: No respiratory distress, lungs clear bilaterally Cardio: Regular rate and rhythm Gastrointestinal: Abdomen is soft, tender to palpation in the right lower quadrant with voluntary guarding Extremities: Moves extremities equally Back: No CVA or flank tenderness Psych: Normal mood and affect Neuro: No focal neuro deficit Skin: Warm, dry, intact Constitutional Vital Signs, click to edit/add: Last Vital Signs Temp 98.2 F 06/11/24 17:02 Pulse 97 H 06/11/24 18:42 Resp 18 06/11/24 18:42 BP 145/82 H 06/11/24 20:08 Pulse Ox 99 06/11/24 18:42 O2 Del Method Room Air 06/11/24 17:02 Course Vital Signs Vital signs: Vital Signs Temperature 98.2 F 06/11/24 17:02 Pulse Rate 107 H 06/11/24 17:02 Respiratory Rate 20 06/11/24 17:02 Blood Pressure 177/108 H 06/11/24 17:02 Pulse Oximetry 100 06/11/24 17:02 Oxygen Delivery Method Room Air 06/11/24 17:02 Temperature 98.2 F 06/11/24 17:02 Pulse Rate 97 H 06/11/24 18:42 Respiratory Rate 18 06/11/24 18:42 Blood Pressure 145/82 H 06/11/24 20:08 Pulse Oximetry 99 06/11/24 18:42 Oxygen Delivery Method Room Air 06/11/24 17:02 Medical Decision Making MDM Narrative Medical decision making narrative: Patient medicated with IV fluids, Dilaudid, Zofran. She can had continued pain however the nausea improved, additional morphine was given with pain control. On my reevaluation, the patient is holding her emesis basin although she has not vomited while in the ER. Additional Zofran was given. Labs show mild leukocytosis and contaminated urinary tract infection. CT with normal appendix and small right ovarian cyst. Abdomen is soft and benign in the ER, no peritoneal findings. She is ambulatory, no pain out of proportion on exam prior to discharge. she is hemodynamically stable with unremarkable vital signs She was given Cipro, Hatley, Zofran, Phenergan for home. Follow-up PCP and return to the ER if symptoms change or worsen SUPERVISED APC VISIT, PHYSICIAN ATTESTATION: Based on the medical record the care appears appropriate. ? Medical Records Medical records reviewed: Yes I reviewed the patient's medical records Lab Data Lab results reviewed: Yes I reviewed the patient's lab results Labs: Lab Results 06/11/24 06/11/24 Range/Units 17:11 17:16 WBC 8.0 (4.0-11.0) 10^3/uL RBC 5.03 (4.20-5.40) 10^6/uL Hgb 14.3 (12.0-16.0) g/dL Hct 42.9 (36.0-48.0) % MCV 85.3 (81.0-99.0) fL MCH 28.4 (26.7-34.0) pg MCHC 33.3 (29.9-35.2) g/dL RDW 12.5 (11.0-15.0) % Plt Count 220 (150-450) 10^3/uL MPV 10.7 (9.5-13.5) fL Neut % (Auto) 60.5 (43.0-75.0) % Lymph % (Auto) 30.6 (20.5-60.0) % [place] % (Auto) 6.3 (1.7-12.0) % Eos % (Auto) 1.8 (0.9-7.0) % Baso % (Auto) 0.5 (0.2-2.0) % Neut # (Auto) 4.8 (1.4-6.5) 10^3/uL Lymph # (Auto) 2.4 (1.2-3.8) 10^3/uL [place] # (Auto) 0.5 (0.3-0.8) 10^3/uL Eos # (Auto) 0.1 (0.0-0.7) 10^3/uL Baso # (Auto) 0.0 (0.0-0.1) 10^3/uL Abs Immat Gran (auto) 0.02 (0.00-0.03) 10^3/uL Imm/Tot Granulo (auto) 0.3 (0.0-0.5) % Sodium 141 (136-145) mmol/L Potassium 3.7 (3.5-5.1) mmol/L Chloride 104 (98-107) mmol/L Carbon Dioxide 24.9 (21.0-32.0) mmol/L Anion Gap 15.8 BUN 9.0 (7.0-18.0) mg/dL Creatinine 1.12 H (0.55-1.02) mg/dL Est GFR ( Amer) >60 (>=60 mL/min/1.73m^2) Est GFR (Non-Af Amer) 57 L (>=60 mL/min/1.73m^2) BUN/Creatinine Ratio 8.0 Glucose 97 (74-106) mg/dL Lactate 1.3 (0.4-2.0) mmol/L Calcium 9.4 (8.5-10.1) mg/dL Total Bilirubin 0.3 (0.2-1.0) mg/dL AST 18 (15-37) U/L ALT 24 (14-59) U/L Alkaline Phosphatase 85 (46-116) U/L Total Protein 7.5 (6.4-8.2) g/dL Albumin 3.8 (3.4-5.0) g/dL Globulin 3.7 g/dL Albumin/Globulin Ratio 1.0 Lipase 57.0 (16.0-77.0) U/L Urine Color Lt. yellow (YELLOW) Urine Clarity Sl cloudy (CLEAR) Urine pH 7.0 (5.0-9.0) Ur Specific [place] 1.020 (1.005-1.025) Urine Protein Negative (NEG/TRACE) mg/dL Urine Glucose (UA) Negative (NEGATIVE) mg/dL Urine Ketones Negative (NEGATIVE) mg/dL Urine Occult Blood Negative (NEGATIVE) Urine Nitrite Negative (NEGATIVE) Urine Bilirubin Negative (NEGATIVE) Urine Urobilinogen 2.0 A (0.2-1.0) EU/dL Ur Leukocyte Esterase Trace A (NEGATIVE) Urine RBC 0-2 (0-2) #/HPF Urine WBC 5-10 A (NONE SEEN) #/HPF Ur Squamous Epith Cells Many A (NONE/RARE) #/LPF Urine Crystals None seen (None Seen) #/HPF Urine Bacteria Moderate A (NONE SEEN) #/HPF Urine Casts None seen (NONE SEEN) #/LPF Urine Mucus Trace A (NONE SEEN) Ur Culture Indicated? Yes Imaging Data CT scan - abdomen: Attestation: I have reviewed the pertinent imaging results. Radiologist's impression: ITS Impressions Abdomen/Pelvis CT 06/11/24 17:24 Impression: 1. No evidence of acute abdominal or pelvic process. No CT findings to explain patient's abdominal pain. 2. Normal appendix. 3. A 9 mm hepatic cyst. A 1.9 cm right ovarian cyst, probably follicular cyst. Small amount of free fluid in cul-de-sac, probably physiological. Electronically authenticated by: GREGOR HENDRICKSON Date: 06/11/2024 20:24 Discharge Plan Discharge Chief Complaint: Abdominal Pain Clinical Impression: UTI (urinary tract infection), Ovarian cyst, Abdominal pain Patient Disposition: Home, Self-Care Time of Disposition Decision: 20:30 Condition: Good Prescriptions / Home Meds: New hydrocodone-acetaminophen 5-325 mg tablet 1 tab PO Q6H PRN (Reason: pain) 2 Days Qty: 8 0RF Rx Instructions: DX: R10.9 ciprofloxacin HCl 500 mg tablet 500 mg PO Q12H Qty: 14 0RF promethazine 25 mg tablet 25 mg PO Q6H PRN (Reason: nausea and vomiting) Qty: 12 0RF ondansetron 4 mg tablet,disintegrating 4 mg PO Q6H PRN (Reason: nausea and vomiting) Qty: 12 0RF No Action lidocaine [Lidoderm] 5 % adhesive patch,medicated 1 patch topical DAILY PRN (Reason: pain) Qty: 15 0RF Rx Instructions: leave near most painful area for up to 12 hrs; do not apply over the rash hydrocodone-acetaminophen 5-325 mg tablet 1 tab PO Q6H PRN (Reason: pain) 5 Days Qty: 20 0RF Print Language: Latvian Instructions: Ovarian Cyst (ED), Urinary Tract Infection in Women (ED), Acute Abdominal Pain (ED) Referrals: Physician,Non-Staff, MD [Primary Care Provider] - 1 week Discharge Date/Time: 06/11/24 20:52
[2024-06-11 17:37] LABS: Basophils Percent Auto 0.5 % (0.2-2.0); Eosinophils Absolute Auto 0.1 10^3/uL (0.0-0.7); Eosinophils Percent Auto 1.8 % (0.9-7.0); Hematocrit 42.9 % (36.0-48.0); Hemoglobin 14.3 g/dL (12.0-16.0); Immature Granulocytes Abs Auto 0.02 10^3/uL (0.00-0.03); Immature Granulocytes Pct Auto 0.3 % (0.0-0.5); Lymphocytes Absolute Auto 2.4 10^3/uL (1.2-3.8); Lymphocytes Percent Auto 30.6 % (20.5-60.0); Mean Corpuscular HGB Conc 33.3 g/dL (29.9-35.2); Mean Corpuscular Hemoglobin 28.4 pg (26.7-34.0); Mean Corpuscular Volume 85.3 fL (81.0-99.0); Mean Platelet Volume 10.7 fL (9.5-13.5); Monocytes Absolute Auto 0.5 10^3/uL (0.3-0.8); Monocytes Percent Auto 6.3 % (1.7-12.0); Neutrophils Absolute Auto 4.8 10^3/uL (1.4-6.5); Neutrophils Percent Auto 60.5 % (43.0-75.0); Platelet Count 220 10^3/uL (150-450); Red Blood Count 5.03 10^6/uL (4.20-5.40); Red Cell Distribution Width 12.5 % (11.0-15.0)
[2024-06-11 17:38] LABS: Bilirubin Urine NEGATIVE (NEGATIVE); Blood Urine NEGATIVE (NEGATIVE); Clarity Urine SL CLOUDY (CLEAR); Color Urine LT. YELLOW (YELLOW); Glucose Urine UA NEGATIVE (NEGATIVE); Ketones Urine NEGATIVE (NEGATIVE); Leukocyte Esterase Urine TRACE (NEGATIVE); Nitrite Urine NEGATIVE (NEGATIVE); Protein Urine NEGATIVE (NEG/TRACE)
[2024-06-11] MEDS: HYDROMORPHONE HCL 1 MG/ML CARTRIDGE IV (17:41)
[2024-06-11] MEDS: ONDANSETRON PF 4 MG/2 ML VIAL IV ×2 (17:41→20:30)
[2024-06-11] MEDS: 0.9 % SODIUM CHLORIDE 1,000 ML 999 ML IV (17:41)
[2024-06-11 17:42] LABS: Urine Microscopic Indicated YES
[2024-06-11 17:51] LABS: Bacteria Urine MODERATE #/HPF (NONE SEEN); Mucus Urine TRACE (NONE SEEN); RBC Urine 0-2 #/HPF (0-2); Squamous Epithelial Cell Urine MANY #/LPF (NONE/RARE)
[2024-06-11 17:52] LABS: Cast Seen? NONE SEEN #/LPF (NONE SEEN); Crystals Seen? None Seen #/HPF (None Seen); Urine Culture Indicated YES
[2024-06-11 17:56] LABS: Lactate/Lactic Acid 1.3 mmol/L (0.4-2.0)
[2024-06-11 18:02] LABS: Alanine Aminotransferase 24 U/L (14-59); Albumin Level 3.8 g/dL (3.4-5.0); Alkaline Phosphatase 85 U/L (46-116); Anion Gap 15.8; Aspartate Amino Transferase 18 U/L (15-37); Bilirubin Total 0.3 mg/dL (0.2-1.0); Calcium 9.4 mg/dL (8.5-10.1); Carbon Dioxide 24.9 mmol/L (21.0-32.0); Chloride 104 mmol/L (98-107); Estimated GFR (African America >60 (>=60 mL/min/1.73m^2); Estimated GFR (Non-African Ame 57 (>=60 mL/min/1.73m^2); Globulin 3.7 g/dL; Glucose 97 mg/dL (74-106); Potassium 3.7 mmol/L (3.5-5.1); Sodium 141 mmol/L (136-145); Total Protein 7.5 g/dL (6.4-8.2)
[2024-06-11] MEDS: MORPHINE SULFATE 4 MG/ML VIAL IV (18:39)
[2024-06-11 18:42] VITALS: BP 158/97; PULSE 97; O2SAT 99
[2024-06-11 20:08] VITALS: BP 145/82
== END 2024-06-11 20:52 | disposition home or self-care (01) ==
PROVIDERS: Physician Assistant; Emergency Provider Emergency Medicine Emergency Medical Services
DX: N39.0 Urinary tract infection, site not specified (principal); N83.201 Unspecified ovarian cyst, right side; R10.31 Right lower quadrant pain; Z90.710 Acquired absence of both cervix and uterus
CPT/HCPCS: 36415; 74177; 80053; 81001; 83605; 83690; 84703; 85025; 87086; 96361; 96374; 96375; 96376; 99285; J1171; J2270; J2405; Q9967

== ENCOUNTER 2025-04-01 17:31 | Emergency (ER) | payer SELFPAY ==
[2025-04-01 17:41] VITALS: BP 163/100; PULSE 101; TEMP 37.2; O2SAT 99; BMI 32.9
--- OUTSIDE RECORDS SUMMARY | 2025-04-01 17:43 | XMS_ITS | Clinical Summary ---
Author Organization [employer] tem Address [id number] [place] [id number] Care Team Providers Care Vending Machine Attendant Name Role Phone Shola Salcedo DO Primary Care Provider [phone] Allergies Active Allergy Reactions Criticality Noted Date Comments Acyclovir Hives 03/03/2013 Latex Rash Low 01/10/2016 itching Ibuprofen Hives 02/25/2013 Medications naproxen (NAPROSYN) 500 mg tablet Take 1 tablet (500 mg total) by mouth 2 (two) times a day with meals. 60 tablet 2 07/14/20 Active acetaminophen (TYLENOL EXTRA STRENGTH) 500 mg tablet Take 2 tablets (1,000 mg total) by mouth every 8 (eight) hours. 30 tablet 2 06/27/20 Active Additional Information Patient not taking.Reported on 08/14/2023 docusate sodium (COLACE) 100 mg capsule Take 1 capsule (100 mg total) by mouth in the morning and 1 capsule (100 mg total) before bedtime. 10 capsule 06/27/20 Active Additional Information Patient not taking.Reported on 08/14/2023 acetaminophen (TYLENOL EXTRA STRENGTH) 500 mg tablet Take 2 tablets (1,000 mg total) by mouth every 8 (eight) hours. 30 tablet 2 07/01/20 Active Additional Information Patient not taking.Reported on 08/14/2023 naproxen (NAPROSYN) 250 mg tablet Take 1 tablet (250 mg total) by mouth every 8 (eight) hours. 30 tablet 2 07/01/20 Active Additional Information Patient not taking.Reported on 08/14/2023 gabapentin (NEURONTIN) 300 mg capsuleIndications :Post-op pain Take 1 capsule (300 mg total) by mouth 3 (three) times a day. 30 capsule 07/01/20 Active ondansetron ODT (ZOFRAN ODT) 4 mg disintegrating tablet Dissolve 1 tablet (4 mg total) on tongue every 8 (eight) hours as needed for nausea or vomiting. 20 tablet 07/01/20 Active Additional Information Patient not taking.Reported on 08/14/2023 oxybutynin (DITROPAN) 5 mg tabletIndications: bladder hyperactivity Take 1 tablet (5 mg total) by mouth 2 (two) times a day as needed (bladder spasms) Indications: overactive bladder. 30 tablet 07/01/20 Active Additional Information Patient not taking.Reported on 08/14/2023 polyethylene glycol (GLYCOLAX) 17 gram packet Take 17 g by mouth in the morning. 28 packet 07/02/20 Active Additional Information Patient not taking.Reported on 08/14/2023 docusate sodium (COLACE) 100 mg capsule Take 1 capsule (100 mg total) by mouth in the morning and 1 capsule (100 mg total) before bedtime. 10 capsule 07/01/20 Active Additional Information Patient not taking.Reported on 08/14/2023 cyclobenzaprine (FLEXERIL) 10 mg tabletIndications: Post-op pain Take 1 tablet (10 mg total) by mouth every 8 (eight) hours as needed for muscle spasms. 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 She is supposed to be on Xarelto, but she does not take it because it makes her sick. Hx pulmonary embolism 09/22/2018 Overview (09/22/2018): 2016 or 2017 after delivery of one of her children, unsure which year. Smoker 09/22/2018 Family History Medical History Relation Name Comments Diabetes Maternal Grandfather Hearing loss Maternal Grandfather Mental illness Maternal Grandfather Skin cancer Maternal Grandfather Breast cancer Maternal Grandmother COPD Maternal Grandmother Hearing loss Maternal Grandmother Ovarian cancer Maternal Grandmother Polycystic ovary syndrome Mother Kidney cancer Paternal Grandmother Lung cancer Paternal Grandmother Colon cancer Neg Hx Pancreatic cancer Neg Hx Prostate cancer Neg Hx Relation Name Status Comments Father Maternal Grandfather Maternal Grandmother age 25 ovarian vsyflq2ron. later breast ca diagnosis Mother Paternal Grandmother Social History Tobacco Use Types Packs/Day Years Used Date Smoking Tobacco: Former Cigarettes 0.5 15 1 08/20/2007 - 06/20/2023 Smokeless Tobacco: Never Alcohol Use Standard Drinks/Week Comments Not Currently 0 (1 standard drink = 0.6 oz pur e alcohol) PHQ-2 Answer Date Recorded Total Score 8 03/06/2023 Housing Instability Answer Date Recorde d Are you worried or concerned that in the next two months you may not have stable housing that you own, rent or stay in as a part of a household? No 07/01/2023 Childcare Answer Date Recorded Childcare Unknown 01/21/2019 Employment Answer Date Recorded Employment Unknown 01/21/2019 Hunger Screening Answer Date Recorded Within the past 12 months we worried whether our food would run out before we got money to buy more. Never True 08/14/2023 Within the past 12 months th e food we bought just didn't last and we didn't have money to get more. Never True 08/14/2023 Purpose - Life Answer Date Recorded Purpose and direction in life Unknown Comments No Sex and Gender Information Value Date Recorded Sex Assigned at Not on file Legal Sex Female 11:48 AM EDT Gender Identity Not on file Sexual Orientation Not on file Last Filed Vital Signs Vital Sign Reading Time Taken Comments Blood Pressure 118/76 08/14/2023 11:57 AM EST Pulse 80 07/01/2023 12:09 PM EST Temperature 36.9 C (98.5 F) 07/01/2023 12:09 PM EST Respiratory Rate 16 07/01/2023 12:09 PM EST Oxygen Saturation 98% 07/01/2023 12:09 PM EST Inhaled Oxygen Concentration - - Weight 88.5 kg (195 lb) 07/09/2023 10:17 AM EST Height 170.2 cm (5' 7.01 ) 07/09/2023 10:[address] Body Mass Index 30.53 07/09/2023 10:17 AM EST Plan of Treatment Health Maintenance Due Date Last Done Comments DTaP,Tdap and Td Vaccines (1 - Tdap) 2012 Depression Screening 03/06/2024 03/06/2023 Adult BMI Screening 07/09/2024 07/09/2023 Tobacco Screening 08/14/2024 08/14/2023 Influenza Vaccine 04/12/2025 Pap Smear Discontinued 03/06/2023 Goals Goal Patient Goal Type Associated Problems Recent Progress Patient-Stated? Author home General Yes Amna Hurst, MICHELLE Note: Evaluation of progress towards goal: home w family support Medical Devices Not on file Procedures Procedure Name Priority Date/Time Associated Diagnosis Comments PAP SMEAR Routine 03/06/2023 6:13 AM EDT Cervical smear, as part of routine gynecological examination from Last 3 Months or Most Recently Relevant to Health Maintenance Results * Pap Smear (03/06/2023 6:13 AM EDT) 03/06/2023 6:13 AM EDT 03/06/2023 6:18 AM EDT Narrative COPATH - 03/07/2023 1:49 PM EDT [facility] [address] [place] [address] Gynecologic Cytology Consultation Patient Name:SARAH KELLEY:1995 (Age: 27)Gender:FTaken:03/06/2023Reported:03/07/2023hysician(s):Jairo KamNKatheryn ([phone])Copy To: Rec. #:[id number]: #[id number] Final Cytologic Interpretation ThinPrep Pap Test (Cervical): Satisfactory for evaluation. A transformation zone component is present. NEGATIVE FOR INTRAEPITHELIAL LESION OR MALIGNANCY. tm/03/07/2023 Interpretation performed at [facility], [address] [place] [id number], License number: [id number]. Electronically Signed Out By Marilyn ALFORD(ASCP) Date of Last Menstrual Period: 01/15/23 Other Clinical Conditions: Z01.419 [employer] Operations Specialist exam wo/abn findings Source of Specimen ThinPrep Pap Test (Cervical) Thin Prep Pap (JELLY MAKER) Fee Code(s): G0145 Angela Alegre [facility] PATHOLOGY/CYTOLOGY ORDER DARYA Final Result COPATH from Last 3 Months or Most Recently Relevant to Health Maintenance Insurance [place] Advance Directives * Full Code (Latest Code Status on File) Date Activated Date Inactivated Comments 06/28/2023 12:25 AM 07/01/2023 5:01 PM Care Teams Vending Machine Attendant Relationship Specialty Start Date End Date Shola Salcedo DO PCP - General Family Medicine 07/17/23
--- OUTSIDE RECORDS SUMMARY | 2025-04-01 17:43 | XMS_ITS | Encounter Summary ---
Author Organization [employer] [facility] [employer] Address [facility] [place] [id number] [address] [place] [address] Care Team Providers Care Cytology Manager Name Role Phone Shola Salcedo DO Primary Care Provider [phone] Encounter Details Date Type Department Care Team (Late st Contact Info) Description 09/18/2023 Telephone [facility] [address] [place] [id number] [facility] [address] [place] [address] Social History Tobacco Use Types Packs/Day Years [...] on file Sexual Orientation Not on file documented as of this encounter Miscellaneous Notes * Telephone Encounter - Keyana More - 09/18/2023 10:37 AM EST Called pt about her missed appointment this morning , pt will contact office when she's ready to reschedule . documented in this encounter Plan of Treatment Not on file documented as of this encounter Goals Goal Patient Goal Type Associated Problems Recent Progress Patient-Stated? Author home General Yes Amna Hurst, RN Note: Evaluation of progress towards goal: home w family support documented as of this encounter Visit Diagnoses Not on filedocumented in this encounter Additional Health Concerns Assessment Noted Time PHQ-9 Depression Total Score: 8 03/06/20 2:04 PM EDT A Body Mass Index follow-up plan has been documented for the patient 03/06/2023 4:59 PM EDT documented as of this encounter Care Teams Cytology Manager Relationship Specialty Start Date End Date Shola Salcedo DO PCP - General Family Medicine 07/17/23 documented as of this encounter
--- OUTSIDE RECORDS SUMMARY | 2025-04-01 17:43 | XMS_ITS | Encounter Summary ---
Author Organization [facility] Address [facility] [id number] [address] [place] [address] Care Team Providers Care Cover Mat Machine Operator Name Role Phone Shola Salcedo DO Primary Care Provider [phone] Encounter Details Date Type Department Care Team (Late st Contact Info) Description 06/27/2023 Documentation [facility] [address] [place] [address] Berkley Goncalves PA [address], [address] [place] [address] Social History Tobacco Use Types Packs/Day Years Used Date Smoking Tobacco: Every Day Cigarettes 0.5 15 Smokeless Tobacco: Never Alcohol Use Standard Drinks/Week [...] got money to buy more. Never True 07/01/2023 Within the past 12 months th e food we bought just didn't last and we didn't have money to get more. Never True 07/01/2023 Purpose - Life Answer Date Recorded Purpose and direction in life Unknown Comments No Sex and Gender Information Value Date Recorded Sex Assigned at Not on file Legal Sex Female 11:48 AM EDT Gender Identity Not on file Sexual Orientation Not on file documented as of this encounter Functional Status documented as of this encounter Plan of Treatment Not on [...] documented as of this encounter Care Teams Cover Mat Machine Operator Relationship Specialty Start Date End Date Shola Salcedo DO PCP - General Family Medicine 07/17/23 documented as of this encounter
--- OUTSIDE RECORDS SUMMARY | 2025-04-01 17:43 | XMS_ITS | Encounter Summary ---
Author Organization [employer] [facility] [employer] Address [facility] [id number] [address] [place] [address] Care Team Providers Care Moisture Meter Reader Name Role Phone Shola Salcedo DO Primary Care Provider [phone] Encounter Details Date Type Department Care Team (Late st Contact Info) Description 06/27/2023 Telephone [facility] [address] [place] [id number] Miles Pastrana MD [address] [place] [address] Social History Tobacco Use Types Packs/Day Years [...] Functional Status documented as of this encounter Miscellaneous Notes * Telephone Encounter - Isabela Blanca - 06/27/2023 10:22 AM EST Consult - Jeni/Dr. Sandoval - [place] [phone] ext [phone] Vag Hyst. documented in this encounter Plan of Treatment [...] documented as of this encounter Care Teams Moisture Meter Reader Relationship Specialty Start Date End Date Shola Salcedo DO PCP - General Family Medicine 07/17/23 documented as of this encounter
--- OUTSIDE RECORDS SUMMARY | 2025-04-01 17:47 | XMS_ITS | CCD ---
Author Organization [facility] Care Team Providers Care Car Detailer Name Role Phone Chapo Shola Freed Unavailable Unavailable Unavailable DO Shola Cowan Primary Care Provider [phone] MD Cortes Dsouza Attending Provider Cortes DSOUZA Referring Unavailable NILL, Gopal Hilton Attending Unavailable KARASIKCortes Referring Unavailable NILL, Gopal Hilton Attending Unavailable Shola Cowan Primary Care Physician MARTÍNEZ ., DR KELLER Consulting Unavailable HAY ., DR KELLER Attending Unavailable HAY ., DR KELLER Admitting Unavailable HOUSE, DR VILLARREAL Primary Care Unavailable MARKER ., DR ARMENDARIZ Consulting Unavailable MARKER ., DR ARMENDARIZ Attending Unavailable MARKER ., DR ARMENDARIZ Admitting Unavailable HOUSE, DR VILLARREAL Primary Care Unavailable JABARIRADHA Consulting Unavailable HOUSE, DR VILLARREAL Primary Care Unavailable NILL ., DR HERRON Consulting Unavailable HOUSE, DR VILLARREAL Primary Care Unavailable NILL ., DR HERRON Attending Unavailable NILL ., DR HERRON Admitting Unavailable NILL ., DR HERRON Consulting Unavailable HOUSE, DR VILLARREAL Primary Care Unavailable NILL ., DR HERRON Attending Unavailable NILL ., DR HERRON Admitting Unavailable MONTGOMERYALEK TATE Consulting Unavailable ZiebJoana tate Consulting Unavailable HOUSE, DR VILLARREAL Primary Care Unavailable NILL ., DR HERRON Attending Unavailable NILL ., DR HERRON Admitting Unavailable NILL ., DR HERRON Consulting Unavailable CHARY HEAD Consulting Unavailable BERTAHNISSA Consulting Unavailable KARASIK ., DR KOLB Consulting Unavailabl e HOUSE, DR VILLARREAL Primary Care Unavailable KARASIK ., DR KOLB Attending Unavailabl e KARASIK ., DR KOLB Admitting Unavailabl e ZiebJoana tate Consulting Unavailable Joana Hurley Consulting Unavailable HOUSE, DR VILLARREAL Primary Care Unavailable NILL ., DR HERRON Attending Unavailable NILL ., DR HERRON Admitting Unavailable NILL ., DR HERRON Consulting Unavailable KARASIK ., DR KOLB Consulting Unavailabl e HOUSE, DR VILLARREAL Primary Care Unavailable KARASIK ., DR KOLB Attending Unavailabl e KARASIK ., DR KOLB Admitting Unavailabl e WEST, DR TYRELL Bonilla Consulting Unavailable HOUSE, DR VILLARREAL Consulting Unavailable HOUSE, DR VILLARREAL Primary Care Unavailable HOUSE, DR VILLARREAL Attending Unavailable HOUSE, DR VILLARREAL Admitting Unavailable Zieber, Joana Consulting Unavailable NILL, Gopal Hilton Attending Unavailable NILL, Gopal Hilton Attending Unavailable House, Shola Primary Care Unavailable Karasik, Cortes Attending Unavailable Karasik, Cortes Admitting Unavailable TAYLOR, IRVING L Attending Unavailable HOUSE, SHOLA P Referring Unavailable HOUSE, SHOLA P Primary Care Unavailable HOUSE, SHOLA P Attending Unavailable HOUSE, SHOLA P Primary Care Unavailable HOUSE, SHOLA P Primary Care Unavailable Molly TELLEZ, Gerald Israel Attending Unavailable HOUSE, SHOLA P Primary Care Unavailable HOUSE, SHOLA P Attending Unavailable HOUSE, SHOLA P Primary Care Unavailable Molly TELLEZ, Gerald Israel Attending Unavailable Molly TELLEZ, Gerald Israel Attending Unavailable HOUSE, SHOLA P Primary Care Unavailable HOUSE, SHOLA P Referring Unavailable HOUSE, SHOLA P Primary Care Unavailable House DO, Shola Freed Primary Care Provider Allergies Allergy Classification Reported Allergen(s) Allergy Type Date of Onset Reaction(s) Facility (20 sources) Acyclovir; Translations: [acyclovir] Drug Allergy 3 Weal (disorder), [facility] (16 sources) Ibuprofen; Translations: [Motrin] Drug Allergy 3 Edema (finding), Weal (disorder), [facility] (6 sources) Urea; Translations: [Latrix SUSP] Drug Allergy [facility] [facility] Work Phone: (5 sources) Ibuprofen; Translations: [ibuprofen] Drug Allergy 3 [facility] (15 sources) Latex; Translations: [Latex] Allergy to substance 6 Weal (disorder), [facility] (2 sources) Acyclovir Drug Allergy 5 [facility] (2 sources) Ibuprofen Drug Allergy 5 [facility] (1 source) Acyclovir Drug Allergy [address] [facility] Medications Current Medications Medication Drug Class(es) Dates Sig (Normalized) Sig (Original) acetaminophen 500 mg oral tablet (11 sources) Start: 06-27-2023 take 2 tablets by mouth every eight hours acetaminophen (TYLENOL EXTRA STRENGTH) 500 mg tablet Take 2 tablets (1,000 mg total) by mouth every 8 (eight) hours. 30 tablet 2 07/01/2023 Active Start: 07-03-2021 End: 02-01-2022 Acetaminophen Extra Strength 500 MG Oral Tablet Quantity: 84 Refills: 0 Ordered: 03-Jul-2021 DO Start : 03-Jul-2021 End : 01-Feb-2022 Complete cyclobenzaprine hydrochloride 10 mg oral tablet (15 sources) Muscle Relaxant Start: 08-14-2023 take 1 tablet by mouth every eight hours as needed for muscle spasms cyclobenzaprine (FLEXERIL) 10 mg tablet Indications: Post-op pain Take 1 tablet (10 mg total) by mouth every 8 (eight) hours as needed for muscle spasms. 30 tablet 1 08/14/2023 Active Start: 07-01-2023 End: 08-14-2023 take 1 tablet by mouth three times daily cyclobenzaprine (FLEXERIL) 10 mg tablet Take 1 tablet (10 mg total) by mouth 3 (three) times a day. 30 tablet 2 07/01/2023 Active Start: 07-03-2021 End: 02-01-2022 Cyclobenzaprine HCl - 5 MG O ral Tablet Quantity: 21 Refills: 0 Ordered: 03-Jul-2021 DO Start : 03-Jul-2021 End : 01-Feb-2022 Complete Start: 10-02-2019 End: 09-06-2021 take 10 mg by mouth every eight hours Cyclobenzaprine Discontinued 10 MG PO Q8H October 13, 2019 1:00am September 06, 2021 12:25pm docusate sodium 100 mg oral capsule (6 sources) Start: 06-27-2023 take 1 capsule by mouth in the morning, then take 1 capsule by mouth at bedtime docusate sodium (COLACE) 100 mg capsule Take 1 capsule (100 mg total) by mouth in the morning and 1 capsule (100 mg total) before bedtime. 10 capsule 0 07/01/2023 Active gabapentin 300 mg oral capsule (3 sources) Anti-epileptic Agent Start: 07-01-2023 take 1 capsule by mouth three times daily gabapentin (NEURONTIN) 300 mg capsule Indications: Post-op pain Take 1 capsule (300 mg total) by mouth 3 (three) times a day. 30 capsule 0 07/01/2023 Active naproxen 250 mg oral tablet (6 sources) Nonsteroidal Anti-inflammatory Drug Start: 07-01-2023 take 1 tablet by mouth every eight hours naproxen (NAPROSYN) 250 mg tablet Take 1 tablet (250 mg total) by mouth every 8 (eight) hours. 30 tablet 2 07/01/2023 Active Start: 07-14-2019 take 1 tablet by shanita th twice daily at mealtime naproxen (NAPROSYN) 500 mg tablet Take 1 tablet (500 mg total) by mouth 2 (two) times a day with meals. 60 tablet 2 07/14/2019 Active ondansetron 4 mg disintegrating oral tablet (3 sources) Serotonin-3 Receptor Antagonist Start: 07-01-2023 take 1 tablet by mouth every eight hours as needed for nausea and vomiting ondansetron ODT (ZOFRAN ODT) 4 mg disintegrating tablet Dissolve 1 tablet (4 mg total) on tongue every 8 (eight) hours as needed for nausea or vomiting. 20 tablet 0 07/01/2023 Active oxybutynin chloride 5 mg oral tablet (3 sources) Cholinergic Muscarinic Antagonist Start: 07-01-2023 take 1 tablet by mouth twice daily as needed for muscle spasms oxybutynin (DITROPAN) 5 mg tablet Indications: bladder hyperactivity Take 1 tablet (5 mg total) by mouth 2 (two) times a day as needed (bladder spasms) Indications: overactive bladder. 30 tablet 0 07/01/2023 Active polyethylene glycol 3350 61039 mg powder for oral solution (3 sources) Osmotic Laxative Start: 07-02-2023 polyethylene glycol (GLYCOLAX) 17 gram packet Take 17 g by mouth in the morning. 28 packet 0 07/02/2023 Active Completed/Discontinued Medications Medication Drug Class(es) Dates Sig (Normalized) Sig (Original) amitriptyline hydrochloride 25 mg oral tablet (3 sources) Tricyclic Antidepressant Start: 11-29-2020 End: 07-28-2021 Amitriptyline HCl - 25 MG Oral Tablet Quantity: 30 Refills: 0 Ordered: 29-Nov-2020 DO Start : 29-Nov-2020 End : 28-Jul-2021 Complete clarithromycin 500 mg oral tablet (3 sources) Macrolide Antimicrobial Start: 05-12-2020 End: 07-28-2021 Clarithromycin 500 MG Oral Tablet Quantity: 20 Refills: 0 Ordered: 12-May-2020 DO Start : 12-May-2020 End : 28-Jul-2021 Complete eletriptan 40 mg oral tablet (3 sources) Serotonin-1b and Serotonin-1d Receptor Agonist Start: 02-23-2021 End: 07-28-2021 Eletriptan Hydrobromide 40 MG Oral Tablet Quantity: 9 Refills: 0 Ordered: 28-Feb-2021 DO Start : 23-Feb-2021 End : 28-Jul-2021 Complete fluticasone propionate 0.05 mg/actuat metered dose nasal spray (3 sources) Corticosteroid Start: 09-20-2021 End: 02-01-2022 take 1 spray(s) nasal route twice daily Fluticasone Propionate 50 MCG/ACT Nasal Suspension Instill 1 SPRAY IN EACH NOSTRIL twice a DAY for 42 days. Quantity: 1 Refills: 1 Ordered: 20-Sep-2021 Lauryn Jules MD Start : 20-Sep-2021 End : 01-Feb-2022 Complete hydrocortisone 10 mg/ml / neomycin 3.5 mg/ml / polymyxin b 76652 unt/ml otic solution (4 sources) Aminoglycoside Antibacterial, Polymyxin-class Antibacterial, Corticosteroid Start: 07-03-2021 Neomycin-Polymyxin- HC 1 % Otic Solution Quantity: 10 Refills: 0 Ordered: 03-Jul-2021 DO Start : 03-Jul-2021 Complete Start: 09-05-2020 End: 07-28-2021 Dslonnqi-Rssjimbpn-VA 3.5-10 000-1 Otic Suspension Quantity: 10 Refills: 0 Ordered: 05-Sep-2020 DO Start : 05-Sep-2020 End : 28-Jul-2021 Complete meloxicam 7.5 mg oral tablet (2 sources) Nonsteroidal Anti-inflammatory Drug Start: 10-13-2019 End: 09-06-2021 take 7.5 mg by mouth once daily Meloxicam Discontinued 7.5 MG PO Daily October 13, 2019 1:00am September 06, 2021 12:25pm methocarbamol 750 mg oral tablet (1 source) Muscle Relaxant Start: 05-29-2021 Methocarbamol 750 MG Oral Tablet Quantity: 10 Refills: 0 Ordered: 30-May-2021 DO Start : 29-May-2021 Complete methylPREDNISolone 4 MG Oral Tablet Therapy Pack (3 sources) Start: 09-20-2021 End: 02-01-2022 methylPREDNISolone 4 MG Oral Tablet Therapy Pack TAKE DIRECTED ON PACKAGE Quantity: 1 Refills: 0 Ordered: 20-Sep-2021 Lauryn Jules MD Start : 20-Sep-2021 End : 01-Feb-2022 Complete Start: 09-20-2021 methylPREDNISo lone 4 MG Oral Tablet Therapy Pack TAKE DIRECTED ON PACKAGE Quantity: 1 Refills: 0 Ordered: 20-Sep-2021 Lauryn Jules MD Start : 20-Sep-2021 Active No Reported Medications (1 source) No Reported Medications Quantity: 0 Refills: 0 Ordered: 25-Jan-2023 DO Active ofloxacin 3 mg/ml otic solution (5 sources) Quinolone Antimicrobial Start: 07-24-20 End: 02-02-20 Ofloxacin 0.3 % Otic Solution INTSTILL 3 DROPS INTO AFFECTED EAR TWICE A DAY for 7 days Quantity: 1 Refills: 1 Ordered: 24-Jul-2021 Lauryn Jules MD Start : 24-Jul-2021 End : 01-Feb-2022 Complete predniSONE 10 mg oral tablet (3 sources) Start: 11-30-19 End: 07-28-20 21 predniSONE 10 MG Oral Tablet Quantity: 18 Refills: 0 Ordered: 29-Nov-2020 DO Start : 29-Nov-2020 End : 28-Jul-2021 Complete 24 hr propranolol hydrochloride 60 mg extended release oral capsule (3 sources) beta-Adrenergic Miky Start: 09-05-19 End: 07-28-20 take 1 capsule by mouth every twenty-four hours Propranolol HCl ER 60 MG Oral Capsule Extended Release 24 Hour Quantity: 30 Refills: 0 Ordered: 05-Sep-2020 DO Start : 05-Sep-2020 End : 28-Jul-2021 Complete Problems Active Problems Problem Classification Problem Date Documented Date Episodic/Chronic Acute and unspecified renal failure (1 source) Acute kidney failure, unspecified; Translations: [Acute kidney failure, unspecified] Onset: 11-12-2023 Episodic Coagulation and hemorrhagic disorders (6 sources) Factor VIII deficiency; 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] Onset: 05-30-2022 06-07-2022 Chronic Conditions associated with dizziness or vertigo (3 sources) Dizziness and giddiness; Translations: [DIZZINESS AND GIDDINESS] Onset: 10-10-2022 Episodic Deficiency and other anemia (4 sources) Anemia 10-02-2019 Episodic Disorders of teeth and jaw (2 sources) Temporomandibular ndpac-nwcf-zxegyfthrwk syndrome; Translations: [Other specified temporomandibular joint disorders] Episodic Esophageal disorders (1 source) Gastro-esophageal reflux disease without esophagitis; Translations: [GERD WITHOUT ESOPHAGITIS] Onset: 10-12-2022 Chronic Genitourinary symptoms and ill-defined conditions (3 sources) Female stress incontinence; Translations: [Stress incontinence (female) (male)] 10-02-2019 Chronic Genitourinary symptoms and ill-defined conditions (6 sources) David hematuria; Translations: [Increased frequency of urination] 10-02-2019 Episodic Headache; including migraine (2 sources) Migraine 06-07-2022 Chronic Headache; including migraine (2 sources) Chronic headache disorder 10-02-2019 Episodic Menstrual disorders (1 source) Irregular menstruation, unspecified; Translations: [IRREGULAR MENSTRUATION UNSPECIFIED] Onset: 09-03-2022 Chronic Mood disorders (5 sources) Bipolar disorder; Translations: [Depressive disorder] Onset: 06-12-2022 06-07-2022 Chronic Nonmalignant breast conditions (8 sources) Fibrocystic disease of breast; Translations: [Diffuse cystic mastopathy of left breast] Onset: 03-16-2022 06-07-2022 Chronic Nonspecific chest pain (1 source) Other chest pain; Translations: [OTHER CHEST PAIN] Onset: 10-12-2022 Episodic Other and unspecified benign neoplasm (2 sources) Benign tumor of breast; Translations: [Benign neoplasm of left breast] Onset: 06-26-2022 Episodic Other and unspecified benign neoplasm (2 sources) Fibroadenoma of breast 06-07-2022 Episodic Other and unspecified benign neoplasm (4 sources) Benign neoplasm of left breast; Translations: [BENIGN NEOPLASM OF LEFT BREAST] Onset: 11-28-2022 Episodic Other ear and sense organ disorders (8 sources) Conductive hearing loss; Translations: [Conductive hearing loss, unspecified] Chronic Other ear and sense organ disorders (8 sources) Cholesteatoma; Translations: [Cholesteatoma, unspecified] Episodic Other ear and sense organ disorders (2 sources) Bilateral earache; Translations: [Otalgia, unspecified] Episodic Other ear and sense organ disorders (1 source) Ear sensations - finding; Translations: [Other disorders of ear] Episodic Other female genital disorders (1 source) Unspecified dyspareunia; Translations: [Unspecified dyspareunia] Onset: 08-14-2023 Chronic Other female genital disorders (3 sources) Abnormal uterine bleeding; Translations: [Abnormal uterine and vaginal bleeding, unspecified] Onset: 09-22-2018 09-22-2018 Chronic Other female genital disorders (1 source) Pain in female genitalia on intercourse; Translations: [Unspecified dyspareunia] 08-14-2023 Chronic Other hematologic conditions (1 source) Personal history of diseases of the blood and blood-forming organs and certain disorders involving the immune mechanism; Translations: [Personal history of diseases of the blood and blood-forming organs and certain disorders involving the immune mechanism] Onset: 11-12-2023 Episodic Other lower respiratory disease (1 source) Personal history of pneumonia (recurrent); Translations: [PERSONAL HX OF PNEUMONIA RECURRENT] Onset: 10-12-2022 Episodic Other nervous system disorders (8 sources) H/O: migraine; Translations: [Personal history of other disorders of nervous system and sense organs] Episodic Other nervous system disorders (1 source) Paresthesia of skin; Translations: [PARESTHESIA OF SKIN] Onset: 10-12-2022 Episodic Other nervous system disorders (1 source) H/O: ear disorder; Translations: [Personal history of other disorders of nervous system and sense organs] Episodic Other nervous system disorders (1 source) Other acute postprocedural pain; Translations: [Other acute postprocedural pain] Onset: 06-28-2023 Episodic Other non-traumatic joint disorders (1 source) Pain in left shoulder; Translations: [PAIN IN LEFT SHOULDER] Onset: 10-12-2022 Episodic Other nutritional; endocrine; and metabolic disorders (2 sources) Body mass index 30+ - obesity 06-07-2022 Chronic Otitis media and related conditions (12 sources) Chronic otitis media; Translations: [Unspecified otitis media] Episodic Residual codes; unclassified (2 sources) Insomnia 06-07-2022 Episodic Residual codes; unclassified (1 source) Family history of malignant neoplasm of breast; Translations: [FAMILY HX MALIG NEOPLASM OF BREAST] Onset: 12-03-2022 Episodic Residual codes; unclassified (1 source) Family history of malignant neoplasm of other genital organs; Translations: [FAM HX MALIG NEOPLSM OTH GENIT ORGN] Onset: 12-03-2022 Episodic Schizophrenia and other psychotic disorders (2 sources) Schizophrenia 10-02-2019 Chronic Screening and history of mental health and substance abuse codes (2 sources) Tobacco use and exposure - finding 06-07-2022 Chronic Screening and history of mental health and substance abuse codes (8 sources) H/O: depression; Translations: [Personal history of other mental disorders] Episodic Substance-related disorders (6 sources) Smoker; Translations: [Nicotine dependence, cigarettes, uncomplicated] Onset: 09-22-2018 10-02-2019 Chronic Comment on above: Added secondary to d ocumentation in Social History. Syncope (1 source) Syncope and collapse; Translations: [Syncope and collapse] Onset: 11-12-2023 Episodic Unclassified (1 source) PERSONAL HISTORY OF COVID-19; Translations: [PERSONAL HISTORY OF COVID-19] Onset: 10-12-2022 Unclassified (1 source) CONTACT W/AND (SUSP) EXPOS COVID-19; Translations: [CONTACT W/AND (SUSP) EXPOS COVID-19] Onset: 06-06-2022 Unclassified (3 sources) COUGH, UNSPECIFIED; Translations: [COUGH, UNSPECIFIED] Onset: 05-24-2022 Unclassified (1 source) Unspecified lump in unspecified breast; Translations: [Unspecified lump in unspecified breast] Onset: 04-19-2022 Past or Other Problems Problem Classification Problem Date Documented Da te Episodic/Chronic Abdominal pain (8 sources) Right lower quadrant pain; Translations: [Suprapubic pain] Onset: 08-29-2022 10-02-2019 Episodic Coagulation and hemorrhagic disorders (3 sources) Blood coagulation disorder; Translations: [Hemorrhagic condition, unspecified] Onset: 09-22-2018 09-22-2018 Episodic Deficiency and other anemia (1 source) Anemia, unspecified; Translations: [ANEMIA UNSPECIFIED] Onset: 06-12-2022 Episodic Mood disorders (3 sources) Mood disorders Onset: 03-06-2023 03-06-2023 Nonmalignant breast conditions (9 sources) Pain of breast; Translations: [Mastodynia] Onset: 04-06-2022 06-07-2022 Episodic Other and unspecified benign neoplasm (1 source) Benign neoplasm of unspecified breast; Translations: [BENIGN NEOPLASM UNSPECIFIED BREAST] Onset: 05-30-2022 Episodic Other nervous system disorders (4 sources) Postoperative pain ; Translations: [Other acute postprocedural pain] Onset: 06-27-2023 06-27-2023 Episodic Phlebitis; thrombophlebitis and thromboembolism (3 sources) H/O: Deep vein thrombosis; Translations: [Personal history of other venous thrombosis and embolism] Onset: 06-12-2022 06-07-2022 Episodic Pulmonary heart disease (8 sources) Pulmonary embolism; Translations: [Other pulmonary embolism without acute cor pulmonale] Onset: 09-22-2018 09-06-2021 Episodic Unclassified (1 source) COUGH, UNSPECIFIED; Translations: [COUGH, UNSPECIFIED] Onset: 05-23-2022 Unclassified (3 sources) Onset: 03-06-2023 03-06-2023 Results Test Name Value Interpretation Reference Range Facility COMPREHENSIVE METABOLIC PANE Santhosh 11-12-2023 Albumin [Mass/Vol] 4.3 g/dL Normal 3.2-5.3 [facility] Comment on above: Performed By: #### C MP #### [facility] ([id number]) [address], [address] [place] [address] ALP [Catalytic activity/Vol] 75 U/L Normal 39-130 [facility] Comment on above: Performed By: #### C MP #### [facility] ([id number]) [address], [address] [place] [address] ALT [Catalytic activity/Vol] 21 U/L Normal 0-31 [facility] Comment on above: Performed By: #### C MP #### [facility] ([id number]) [address], [address] [place] [address] Anion gap [Moles/Vol] 7 mmol/L Normal 5-15 [facility] Comment on above: Performed By: #### C MP #### [facility] ([id number]) [address], [address] [place] [address] AST [Catalytic activity/Vol] 21 U/L Normal 0-41 [facility] Comment on above: Performed By: #### C MP #### [facility] ([id number]) [address], [address] [place] [address] Bilirubin [Mass/Vol] 0.5 mg/dL Normal 0.3-1.2 [facility] Comment on above: Performed By: #### C MP #### [facility] ([id number]) [address], [address] [place] [address] Calcium [Mass/Vol] 9.4 mg/dL Normal 8.5-10.5 [facility] Comment on above: Performed By: #### C MP #### [facility] ([id number]) [address], [address] [place] [address] Chloride [Moles/Vol] 104 mmol/L Normal 98-109 [facility] Comment on above: Performed By: #### C MP #### [facility] ([id number]) [address], [address] [place] [address] CO2 [Moles/Vol] 29 mmol/L Normal 22-32 [facility] Comment on above: Performed By: #### C MP #### [facility] ([id number]) [address], [address] [place] [address] Creatinine [Mass/Vol] 0.86 mg/dL Normal 0.40-1.00 [facility] Comment on above: Result Comment: METH OD TRACEABLE TO IDMS STANDARD Performed By: #### C MP #### [facility] ([id number]) [address], [address] [place] [address] eGFR (CKD-EPI) NON-RACE DEPENDENT >90 Normal >59 [facility] Comment on above: Result Comment: Reported eGFR is based on the CKD-EPI 2020 equation that does not use a race coefficient. Performed By: #### C MP #### [facility] ([id number]) [address], [address] [place] [address] Glucose [Mass/Vol] 69 mg/dL Normal 65-99 [facility] Comment on above: Performed By: #### C MP #### [facility] ([id number]) [address], [address] [place] [address] Potassium [Moles/Vol] 3.8 mmol/L Normal 3.5-5.0 [facility] Comment on above: Performed By: #### C MP #### [facility] ([id number]) [address], [address] [place] [address] Protein [Mass/Vol] 7.3 g/dL Normal 6.0-8.0 [facility] Comment on above: Performed By: #### C MP #### [facility] ([id number]) [address], [address] [place] [address] Sodium [Moles/Vol] 140 mmol/L Normal 134-146 [facility] Comment on above: Performed By: #### C MP #### [facility] ([id number]) [address] [place] [address] Urea nitrogen [Mass/Vol] 11 mg/dL Normal 5-23 [facility] Comment on above: Performed By: #### C MP #### [facility] ([id number]) [address] [place] [address] Patient Provided Health Data on 06-13-2023 Patient Provided Health Data [id number] [facility] Patient Handouton 06-03-2023 Patient Handout [id number]#[id number] F [facility] Tobacco Screening.on 023 Adult depression screening assessment Yes [facility] [email or web address] Work Phone: Adult depression screening assessment No [facility] [employer] Work Phone: Fall risk assessment a) No falls within the last year [facility] [email or web address] Work Phone: Tobacco use status [facility] a) Yes [facility] [employer] Work Phone: Tobacco Screening. Yes [facility] [facility] [email or web address] Work Phone: Outside Mammographyon 2022 Outside Mammography [id number]#[id number]:127 [facility] MG MAMM DX 3D LT CADon 11-28 MG MAMM DX 3D LT CAD Patient: SARAH KELLEY Exam Date: 11/28/2022 : 1995 Gender:F Ordering : DR GOPAL MACHADO . Admission #: [id number] Family : Order #: [id number] CLICK HERE TO VIEW EXAM RADIOLOGY REPORT PROCEDURE: MAMMOGRAM DIAGNOSTIC 3D LEFT CAD COMPARISON: MG MAMM KEY[place] DIAG W CAD, 03/16/2022. MAMMO POST BIOPSY BILATERAL, 09/13/2021. MG MAMM DIAGNOSTIC 3D [place] CAD, 09/01/2021. INDICATIONS: Benign neoplasm of left breast Calculator Name NCI Breast Cancer Risk Assessment Tool 5 Year Breast Cancer Risk Not Applicable. Lifetime Breast Cancer Risk Not Applicable. Personal Breast Cancer No Personal Ovarian Cancer No Treatments None Family Cancers Grandmother-maternal with breast cancer at age 28; Grandmother-maternal with cervical cancer at age 25. LOCATION: [facility] BREAST COMPOSITION: Heterogeneously dense,which may obscure small masses. FINDINGS: DIAGNOSTIC CATEGORY 2--BENIGN FINDING: RIGHT BREAST: No significant suspicious finding. Previously seen biopsy marker clip was removed during lumpectomy. No significant scarring. RECOMMENDATIONS: CLINICAL EVALUATION. PLEASE NOTE: A NORMAL MAMMOGRAM DOES NOT EXCLUDE THE POSSIBILITY OF BREAST CANCER. A CLINICALLY SUSPICIOUS PALPABLE LUMP SHOULD BE BIOPSIED. Dictated by: Joana Hurley M.D. on 11/28/2022 at 09:58 Approved by: Joana Hurley M.D. on 11/28/2022 at 10:03 [facility] Reminderson 11-22-2022 Reminders - From: Kira So LPN To: N - Clinical; Sent: 06/26/2022 13:13:58 EST Show up: 11/10/2022 07:00:00 EDT Subject: mammogram recall Due Date/Time: 12/05/2022 07:00:00 EDT Reminder/Recall Patient is due for new baseline mammogram 12/05/2022. Voice mail not set up. Will call again at later time. Voice mail not set up. Will call again at later time. Voice mail not set up. Will mail letter. Mammogram is scheduled for 11/28 at 9:30. Patient notified and order faxed to [place]. [facility] Provider Letter FTon 11-19 Provider Letter [facility] November 19, 2022 SARAH DAMON [address] [place] [phone] SARAH DAMON 1995 Dear Sarah , We have been trying to reach you with no success. It is important that you return our call upon receiving this letter. Also, at the time of your call, please provide us with your current information. Thank you for your prompt attention to this matter. Sincerely, Dr. Gopal Machado MD General Surgery [facility] CARDIAC SHARON ADMITon 023 CK [Catalytic activity/Vol] 270 U/L Critically high 26-192 [facility] Comment on above: Performed By: #### C SELMA, CMP ####[facility] [address] [id number]. Jessica Mccall CK.MB [Mass/Vol] 60.80 ng/mL Critically high <=3.60 Th e [facility] Comment on above: Performed By: #### C SELMA, CMP ####[facility] [address] [address]Dr. Jessica Mccall HSTROP 6.6 pg/mL Normal 4.0-51.3 [facility] Comment on above: Result Comment: CUT- OFF POINTS HAVE BEEN ESTABLISHED BASED ON THE FOURTH UNIVERSAL DEFINITIONS OF MYOCARDIAL INFARCTION. THE UPPER REFERENCE LIMIT (URL) OF TROPONIN, DEFINED THE 99TH PERCENTILE OF cTnI DISTRIBUTION IN A REFERENCE POPULATION, HAS BEEN CONFIRMED THE DECISION THRESHOLD FOR [place] DIAGNOSIS. Performed By: #### C SELMA, CMP ####[facility] [address] [address]Dr. Jessica Mccall VIOLETA 54 ng/mL Normal 9-82 [facility] Comment on above: Performed By: #### C SELMA, CMP ####[facility] [address] [address]Dr. Jessica Mccall CBC AUTO DIFFon 10-10-2022 BASO # 0.0 103/ul Normal 0.0-0.1 [facility] Comment on above: Performed By: #### C BC #### [facility] [address] [place] [address] Dr. Jessica Mccall Basophils/100 WBC (Bld) 0.5 % Normal 0.2-2.0 [facility] Comment on above: Performed By: #### C BC #### [facility] [address] [place] [address] Dr. Jessica Mccall EO # 0.3 103/ul Normal 0.0-0.7 [facility] Comment on above: Performed By: #### C BC #### [facility] [address] [place] [address] Dr. Jessica Mccall Eosinophils/100 WBC (Bld) 4.3 % Normal 0.9-7.0 [facility] Comment on above: Performed By: #### C BC #### [facility] [address] [place] [address] Dr. Jessica Mccall Erythrocyte distribution width (RBC) [Ratio] 12.7 % Normal 11.0-15.0 [facility] Comment on above: Performed By: #### C BC #### [facility] [address] [place] [address] Dr. Jessica Mccall Hematocrit (Bld) [Volume fraction] 39.4 % Normal 36.0-48.0 [facility] Comment on above: Performed By: #### C BC #### [facility] [address] [place] [address] Dr. Jessica Mccall Hemoglobin (Bld) [Mass/Vol] 13.4 g/dL Normal 12.0-16.0 [facility] Comment on above: Performed By: #### C BC #### [facility] [address] [place] [address] Dr. Jessica Mccall IG # 0.01 10e3/ul Normal 0.00-0.03 [facility] Comment on above: Performed By: #### C BC #### [facility] [address] [place] [address] Dr. Jessica Mccall IG % 0.2 % Normal 0.0-0.5 [facility] Comment on above: Performed By: #### C BC #### [facility] [address] [place] [address] Dr. Jessica Mccall LYMPH # 2.6 103/ul Normal 1.2-3.8 [facility] Comment on above: Performed By: #### C BC #### [facility] [address] [place] [address] Dr. Jessica Mccall Lymphocytes/100 WBC (Bld) 40.0 % Normal 20.5-60.0 [facility] Comment on above: Performed By: #### C BC #### [facility] [address] [place] [address] Dr. Jessica Mccall MANUAL DIFF REQ NO Normal [facility] Comment on above: Performed By: #### C BC #### [facility] [address] [place] [address] Dr. Jessica Mccall MCH (RBC) [Entitic mass] 29.1 pg Normal 26.7-34.0 [facility] Comment on above: Performed By: #### C BC #### [facility] [address] [place] [address] Dr. Jessica Mccall MCHC (RBC) [Mass/Vol] 34.0 g/dL Normal 29.9-35.2 [facility] Comment on above: Performed By: #### C BC #### [facility] [address] [place] [address] Dr. Jessica Mccall MCV (RBC) [Entitic vol] 85.7 fL Normal 81.0-99.0 [facility] Comment on above: Performed By: #### C BC #### [facility] [address] [place] [address] Dr. Jessica Mccall MONO # 0.4 103/ul Normal 0.3-0.8 [facility] Comment on above: Performed By: #### C BC #### [facility] [address] [place] [address] Dr. Jessica Mccall Monocytes/100 WBC (Bld) 6.0 % Normal 1.7-12.0 [facility] Comment on above: Performed By: #### C BC #### [facility] [address] [place] [address] Dr. Jessica Mccall NEUT # 3.2 103/ul Normal 1.4-6.5 [facility] Comment on above: Performed By: #### C BC #### [facility] [address] [place] [address] Dr. Jessica Mccall Neutrophils/100 WBC (Bld) 49.0 % Normal 43.0-75.0 [facility] Comment on above: Performed By: #### C BC #### [facility] [address] [place] [address] Dr. Jessica Mccall Platelet mean volume (Bld) [Entitic vol] 10.4 fL Normal 9.5-13.5 [facility] Comment on above: Performed By: #### C BC #### [facility] [address] [address] [address] Jessica Mccall PLT 189 103/ul Normal 150-450 [facility] Comment on above: Performed By: #### C BC #### [facility] [id number] Jessica Mccall RBC 4.60 106/ul Normal 4.20-5.40 [facility] Comment on above: Performed By: #### C BC #### [facility] [address] [address] [address] Jessica Mccall WBC 6.5 103/ul Normal 4.0-11.0 [facility] Comment on above: Performed By: #### C BC #### [facility] [address] [address] [address] Jessica Mccall D-DIMERon 10-10-2022 D-DIMER 0.22 mg/L FEU Normal <=0.59 [facility] Comment on above: Performed By: #### D DIM #### [facility] [address] [address] [address] Jessica Mccall D-DIMER COMMENTS SEE BELOW Normal [facility] Comment on above: Result Comment: Incr eases in D-Dimer concentration observed with thromboembolic events can be variable due to localization, size, and age of the thrombus. Therefore, a thromboembolic event cannot be diagnosed with certainty on the basis of the reference range. D-Dimers may also be elevated for a variety of disorders including: advanced age, , coronary disease, cancer, liver disease, infection, inflammation, hematoma, DIC, trauma, post-surgery, diabetes, thrombolytic or anticoagulant therapy, stress, and generalized hospitalization. Performed By: #### D DIM #### [facility] [address] [address] [address] Jessica Mccall PROF 14(COMP METB)on 023 Albumin [Mass/Vol] 3.7 g/dL Normal 3.4-5.0 [facility] Comment on above: Performed By: #### C MADM, CMP ####[facility] [address] [address]Dr. Jessica Mccall Albumin/Globulin [Mass ratio] 1.2 {ratio} Normal [facility] Comment on above: Performed By: #### C SELMA, CMP ####[facility] [address] [address]Dr. Jessica Mccall ALP [Catalytic activity/Vol] 80 U/L Normal 46-116 [facility] Comment on above: Performed By: #### C SELMA, CMP ####[facility] [address] [address]Dr. Jessica Mccall ALT [Catalytic activity/Vol] 30 U/L Normal 14-59 [facility] Comment on above: Performed By: #### C SELMA, CMP ####[facility] [address] [place], [place] [address]Dr. Jessica Mccall Anion gap [Moles/Vol] 10.4 mmol/L Normal [facility] Comment on above: Performed By: #### C SELMA, CMP ####[facility] [address] [place], [place] [address]Dr. Jessica Mccall AST [Catalytic activity/Vol] 27 U/L Normal 15-37 [facility] Comment on above: Performed By: #### Corrine HAHN, CMP ####[facility] [address] [place], [place] [address]Dr. Jessica Mccall Bilirubin [Mass/Vol] 0.2 mg/dL Normal 0.2-1.0 [facility] Comment on above: Performed By: #### Corrine HAHN, CMP ####[facility] [address] [place], [place] [address]Dr. Jessica Mccall Calcium [Mass/Vol] 8.9 mg/dL Normal 8.5-10.1 [facility] Comment on above: Performed By: #### C SELMA, CMP ####[facility] [address] [place], [place] [address]Dr. Jessica Mccall Chloride [Moles/Vol] 105 mmol/L Normal 98-107 [facility] Comment on above: Performed By: #### C SELMA, CMP ####[facility] [address] [place], [place] [address]Dr. Jessica Mccall CO2 [Moles/Vol] 28.1 mmol/L Normal 21.0-32.0 [facility] Comment on above: Performed By: #### Corrine HAHN, CMP ####[facility] [address] [address]Dr. Jessica Mccall Creatinine [Mass/Vol] 0.82 mg/dL Normal 0.55-1.02 [facility] Comment on above: Performed By: #### Corrine HAHN, CMP ####[facility] [address] [address]Dr. Jessica Mccall EGFR-AF HONDURAN >60 Normal >=60 [facility] Comment on above: Performed By: #### Corrine HAHN, CMP ####[facility] [address] [address]Dr. Jessica Mccall EGFR-NON AF HONDURAN >60 Normal >=60 [facility] Comment on above: Performed By: #### Corrine HAHN, CMP ####[facility] [address] [address]Dr. Jessica Mccall Globulin (S) [Mass/Vol] 3.1 g/dL Normal [facility] Comment on above: Performed By: #### Corrine HAHN, CMP ####[facility] [address] [place] [address]Dr. Jessica Mccall Glucose [Mass/Vol] 96 mg/dL Normal 74-106 [facility] Comment on above: Performed By: #### Corrine HAHN, CMP ####[facility] [address] [address]Dr. Jessica Mccall Potassium [Moles/Vol] 3.5 mmol/L Normal 3.5-5.1 [facility] Comment on above: Performed By: #### Corrine HAHN, CMP ####[facility] [address] [place] [address]Dr. Jessica Mccall Protein [Mass/Vol] 6.8 g/dL Normal 6.4-8.2 [facility] Comment on above: Performed By: #### Corrine HAHN, CMP ####[facility] [address] [place], [place] [address]Nz. Jessica Mccall Sodium [Moles/Vol] 140 mmol/L Normal 136-145 [facility] Comment on above: Performed By: #### C SELMA, CMP ####[facility] [address] [place], [place] [address]Rz. Jessica Mccall Urea nitrogen [Mass/Vol] 7.0 mg/dL Normal 7.0-18.0 [facility] Comment on above: Performed By: #### C SELMA, CMP ####[facility] [address] [place], [place] [address]Nd. Jessica Mccall Urea nitrogen/Creatinine [Mass ratio] 8.5 mg/mg Normal [facility] Comment on above: Performed By: #### C SELMA, CMP ####[facility] [address] [place], [place] [address]Er. Jessica Mccall XR CHEST 1 Von 10-10-2022 XR CHEST 1 V CHEST 1 VIEW, 10/11/19 12:55 AM EST CLINICAL INDICATION: CHEST PAIN, UNSPECIFIED. . Pain in left shoulder and arm. Right arm tingling. Nausea and vomiting.. COMPARISON: Chest x-ray, 05/23/2022. FINDINGS: Cardiac size, mediastinal contour, and pulmonary vascularity appear within normal limits. The lungs and pleural spaces appear clear. No acute osseous abnormality or suspicious bony lesion is identified. IMPRESSION: No acute findings. Electronically authenticated by: RADHA BARBOZA Date: 2022-10-10 02:01 Normal [facility] US PELVIS AND TRANSVAGon US PELVIS AND TRANSVAG EXAMINATION: US PELVIS AND TRANSVAG HISTORY: Pelvic and perineal pain COMPARISON: No relevant comparison available. FINDINGS: Transabdominal and transvaginal images The uterus is normal in size, contour and myometrial echotexture with no focal myometrial mass. The uterus is anteverted, anteflexed. Uterus measures 7.7 x 3.8 x 5.6 cm. The endometrium measures 5 mm, normal The right ovary is normal measuring 2.0 x 1.1 x 1.1 cm. Normal color flow. The left ovary is normal measuring 2.9 x 1.2 x 1.7 cm. Normal color flow No free fluid IMPRESSION: Normal exam Electronically authenticated by: TYRELL DUTTA Date: 2022-08-29 16:22 Normal [facility] RAD - Ultrasound Reporton RAD - Ultrasound Report [id number]:127 Normal [facility] Ambulatory Visit Summaryon 1 08-26-2021 Ambulatory Visit Summary SARAH DAMON :1995 Visit Date:06/26/2022 Ambulatory Visit Instructions Your Diagnosis Fibroadenoma of left breast Your Care Team Attending Physician - THOMAS TELLEZ, Gopal Hilton Primary Care Physician - Shola Cowan DO This Is Your Medications List cyclobenzaprine Procedures Performed Excision of fibroadenoma of breast (06/06/2022), Benign tumor of middle ear, Bilateral complete salpingectomy, Breast lumpectomy, Colonoscopy, Colonoscopy, Dilation and curettage, Dilation and curettage, Dilation and curettage, Dilation and curettage, EGD - Esophagogastroduodenoscopy , Endometrial ablation, Lumpectomy of left breast, Perforation of ear drum, Salpingectomy, Tonsillectomy and adenoidectomy, Ts - Tonsillectomy. Medications What How Much When Instructions Unchanged cyclobenzaprine 10 Milligram By Mouth Allergies Latex (Hives) Motrin (Edema, Hives) acyclovir (Hives) Problems Ongoing - Any problem that you are currently receiving treatment for. 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 Minimal discomfort. Denies bleeding or drainage. History of Present Illness 3 weeks s/p excisional biopsy left upper outer quadrant fibroadenoma; doing well, mild soreness, no drainage. pathology consistent with fibroadenoma. Review of Systems ROS - Provider Constitutional: no fever, no sweats, no weight loss. Eyes: no glasses, no blurred vision, no visual loss. ENMT: no dentures, no hoarseness, no swallowing difficulties, no hearing loss, no ear infection(s), no nose bleeds. Cardiovascular: normal blood pressure, no chest pain, regular heartbeat, no heart murmur. Respiratory: no shortness of breath, no cough, no asthma, no wheezing. Gastrointestinal: no nausea, no vomiting, no diarrhea, no constipation, no blood in stool, no change in bowel habits, no abdominal pain, no hepatitis. Genitourinary: no kidney stones, no urine infection, no dysuria. Musculoskeletal: moderate pain, no weakness. Skin: no changing moles, no rash, no skin lumps. Neurologic: no seizures, no epilepsy, no headache. Psychiatric: no emotional or psychiatric problem. Heme/Lymph: no bleeding problems, no anemia, no blood clots, no transfusions. Allergy/Immunologic: no swollen lymph nodes/glands, no IV drug abuse. Other: Additional ROS info: Except as noted in the above Review of Systems and in the History of Present Illness, all other systems have been reviewed and are negative or noncontributory. Physical Exam left breast incision healing well, no erythema or drainage, no ecchymoses; glue still on incision. Assessment/Plan 1. Fibroadenoma of left breast (D24.2: Benign neoplasm of left breast) doing well, recommend left mammogram in 6 months for new baseline study; call sooner if problems/questions. 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 Gross hematuria History of DVT (deep vein thrombosis) History of pulmonary embolism Insomnia Migraines Nocturia Right lower quadrant pain Schizophrenia Smoker STEFAN (stress urinary incontinence, female) Suprapubic pain Thrombophilia Tobacco use Urinary frequency Historical No qualifying data Procedure/Surgical History Excision of fibroadenoma of breast (06/06/2022), Benign tumor of middle ear, Bilateral complete salpingectomy, Breast lumpectomy, Colonoscopy, Colonoscopy, Dilation and curettage, Dilation and curettage, Dilation and curettage, Dilation and curettage, EGD - Esophagogastroduodenoscopy , Endometrial ablation, Lumpectomy of left breast, Perforation of ear drum, Salpingectomy, Tonsillectomy and adenoidectomy, Ts - Tonsillectomy. Medications cyclobenzaprine, 10 mg, Oral Allergies Latex (Hives) Motrin (Edema, Hives) acyclovir (Hives) Social History Alcohol - Denies Alcohol Use, 05/02/2022 Substance Abuse - Denies Substance Abuse, 05/02/2022 Current, Marijuana, 1-2 times per year, IV drug use: No. Drug use interferes with work/home: No. Ready to change: No. Household substance abuse concerns: No., 10/02/2019 Tobacco - High Risk, 10/02/2019 10 or more cigarettes (1/2 pack or more)/day in last 30 days Tobacco Use:. Never Smokeless Tobacco Use:. Cigarettes, 1 per day. Started age 9.0 Years. Yes, 05/02/2022 Yes, 10/02/2019 Smoker, current status unknown Tobacco Use:. Cigarettes, 10/02/2019 Family History Anemia: Mother. Aneurysm: Father. Arthritis: Grandparent. Asthma: Father. Bipolar disorder: Father, Sister and Brother. Cancer: Grandparent. Diabetes mellitus type 2: Grandparent. Drug addiction: Brother. Heart disease: Father and Grandparent. High cholesterol: Grandparent. Hypertension: Grandparent. Kidney stone: Mother and Grandparent. Liver disease: Grandparent. Migraine: Mother, Father and Grandparent. Polycystic left and right ovary: Sister. Immunizations Vaccine Date Status Comments influenza virus vaccine, live, trivalent - Not Given Patient Refuses Normal [facility] Comment on above: Result Comment: Elec tronically Signed By: THOMAS TELLEZ, Gopal Cordoba\Date and Time Signed: 06/26/22 13:20 EST US GUIDE LOCAL BREAST LTon 08-22-2021 US GUIDE LOCAL BREAST LT Begin Addendum #1 COLLECTED DATE/TIME: 06/06/2022 11:55 EDT Final Diagnosis Report for [facility] [place], [place] LEFT BREAST, ULTRASOUND-GUIDED NEEDLE LOCALIZATION LUMPECTOMY: - FIBROADENOMA 06/13/2022 Sent to above physician per pathology. Original Report EXAM: US GUIDE LOCAL BREAST LT HISTORY: Benign tumor of breast COMPARISON: Ultrasound breast Limited bilateral 03/16/2022, ultrasound breast biopsy 09/13/2021 TECHNIQUE: Ultrasound evaluation of left breast FINDINGS: 3.0 x 2.3 x 1.4 cm slightly lobular hypoechoic mass at the 1:00 position with marker clip from prior biopsy located within the mass. Skin was prepped and draped in normal sterile fashion. Skin and deeper tissues were anesthetized with 1% buffered lidocaine. A localizing wire were advanced through the skin and subcutaneous fat into the center of the mass where wire was deployed and anchored. Patient tolerated the procedure well and there were no postprocedural complications. IMPRESSION: Ultrasound-guided wire localization of left breast 1:00 mass. Normal [facility] Provider Letter FTon 06-14 Provider Letter [facility] June 14, 2022 SARAH DAMON [address] [place] [phone] SARAH DAMON 1995 Dear Sarah , We have been trying to reach you with no success. It is important that you return our call upon receiving this letter. Also, at the time of your call, please provide us with your current information. Thank you for your prompt attention to this matter. Sincerely, Dr. Gopal Machado MD General Surgery Normal [facility] Pathology Noteon 06-11-2022 Pathology Note [id number]:127 Normal [facility] Operative Reporton Operative Report [id number]#[id number]:127 Normal [facility] RAD - Ultrasound Reporton RAD - Ultrasound Report [id number]#1.00CD:127 Normal [facility] PREG HCG QUALon 06-06-2022 , QUAL Negative Normal NEGATIVE [facility] Comment on above: Performed By: #### P REG #### [facility] [address] [address] [address] Jessica Mccall Lab Reportson 06-04-2022 Lab Reports [id number]#[id number]:127 Normal [facility] ECG 12-Leadon 06-03-2022 ECG 12-Lead [id number]#[id number]:127 Normal [facility] Covid-19 PCR (CVDTB)on 05-13 SARS-CoV-2 (COVID-19) RNA SCOTT+probe Ql (Unsp spec) Not detected Normal NOT DETECTED [facility] Comment on above: Result Comment: This test is not yet approved or cleared by the [place] FDA. When there are no FDA-approved or cleared tests available, and other criteria are met, FDA can make tests available under an emergency access mechanism called an Emergency Use Authorization (EUA). The EUA for this test is supported by the [place] of Health and Human Service's (HHS's) declaration that circumstances exist to justify the emergency use of in vitro diagnostics for the detection and/or diagnosis of the virus that causes COVID-19. This EUA will remain in effect (meaning this test can be used) for the duration of the COVID-19 declaration justifying emergency of IVDs, unless it is terminated or revoked by FDA (after which the test may no longer be used). When diagnostic testing is negative, the possibility of a false negative should be considered in the context of a patient's recent exposures and the presence of clinical signs and symptoms consistent with SARS-CoV-2. Performed By: #### C VDTB #### [facility] [id number] Jessica Mccall Lab Reportson 05-31-2022 Lab Reports [id number]#[id number]:127 Normal [facility] Pre-Certification Formon Pre-Certification Form [id number]:127 Normal [facility] CBC AUTO DIFFon 05-28-2022 BASO # 0.1 103/ul Normal 0.0-0.1 [facility] Comment on above: Performed By: #### C BC #### [facility] [address] [address] [address] Jessica Mccall Basophils/100 WBC (Bld) 0.6 % Normal 0.2-2.0 [facility] Comment on above: Performed By: #### C BC #### [facility] [address] [address] [address] Jessica Mccall EO # 0.1 103/ul Normal 0.0-0.7 [facility] Comment on above: Performed By: #### C BC #### [facility] [address] [address] [address] Jessica Mccall Eosinophils/100 WBC (Bld) 1.7 % Normal 0.9-7.0 [facility] Comment on above: Performed By: #### C BC #### [facility] [address] [address] [address] Jessica Mccall Erythrocyte distribution width (RBC) [Ratio] 12.8 % Normal 11.0-15.0 [facility] Comment on above: Performed By: #### C BC #### [facility] [address] [address] [address] Jessica Mccall Hematocrit (Bld) [Volume fraction] 43.1 % Normal 36.0-48.0 [facility] Comment on above: Performed By: #### C BC #### [facility] [address] [address] [address] Jessica Mccall Hemoglobin (Bld) [Mass/Vol] 14.3 g/dL Normal 12.0-16.0 [facility] Comment on above: Performed By: #### C BC #### [facility] [address] [address] [address] Jessica Mccall IG # 0.08 10e3/ul Critically high 0.00-0.03 [facility] Comment on above: Performed By: #### C BC #### [facility] [address] [place] [address] Dr. Jessica Mccall IG % 1.0 % Critically high 0.0-0.5 [facility] Comment on above: Performed By: #### C BC #### [facility] [address] [place] [address] Dr. Jessica Mccall LYMPH # 2.7 103/ul Normal 1.2-3.8 [facility] Comment on above: Performed By: #### C BC #### [facility] [address] [place] [address] Dr. Jessica Mccall Lymphocytes/100 WBC (Bld) 32.4 % Normal 20.5-60.0 [facility] Comment on above: Performed By: #### C BC #### [facility] [address] [place] [address] Dr. Jessica Mccall MANUAL DIFF REQ NO Normal [facility] Comment on above: Performed By: #### C BC #### [facility] [address] [place] [address] Dr. Jessica Mccall MCH (RBC) [Entitic mass] 29.2 pg Normal 26.7-34.0 [facility] Comment on above: Performed By: #### C BC #### [facility] [address] [place] [address] Dr. Jessica Mccall MCHC (RBC) [Mass/Vol] 33.2 g/dL Normal 29.9-35.2 [facility] Comment on above: Performed By: #### C BC #### [facility] [address] [place] [address] Dr. Jessica Mccall MCV (RBC) [Entitic vol] 88.1 fL Normal 81.0-99.0 [facility] Comment on above: Performed By: #### C BC #### [facility] [address] [place] [address] Dr. Jessica Mccall MONO # 0.5 103/ul Normal 0.3-0.8 [facility] Comment on above: Performed By: #### C BC #### [facility] [address] [place] [address] Dr. Jessica Mccall Monocytes/100 WBC (Bld) 5.6 % Normal 1.7-12.0 [facility] Comment on above: Performed By: #### C BC #### [facility] [address] [address] [address] Jessica Mccall NEUT # 4.9 103/ul Normal 1.4-6.5 [facility] Comment on above: Performed By: #### C BC #### [facility] [address] [address] [address] Jessica Mccall Neutrophils/100 WBC (Bld) 58.7 % Normal 43.0-75.0 [facility] Comment on above: Performed By: #### C BC #### [facility] [address] [address] [address] Jessica Mccall Platelet mean volume (Bld) [Entitic vol] 10.0 fL Normal 9.5-13.5 [facility] Comment on above: Performed By: #### C BC #### [facility] [address] [place] [address] Dr. Jessica Mccall PLT 219 103/ul Normal 150-450 [facility] Comment on above: Performed By: #### C BC #### [facility] [address] [place] [address] Dr. Jessica Mccall RBC 4.89 106/ul Normal 4.20-5.40 [facility] Comment on above: Performed By: #### C BC #### [facility] [address] [place] [address] Dr. Jessica Mccall WBC 8.4 103/ul Normal 4.0-11.0 [facility] Comment on above: Performed By: #### C BC #### [facility] [address] [address] [address] Jessica Mccall PROTIMEon 05-28-2022 INR Coag (PPP) [Relative time] 0.98 {INR} Normal [facility] Comment on above: Performed By: #### P TT, PT ####[facility] [address] [address] Jessica Mccall INR GUIDELINES SEE BELOW Normal [facility] Comment on above: Result Comment: ALYSSA RED INR: 2.0 - 3.0 CONDITIONS NOT LISTED BELOW 2.5 - 3.5 FOR PROSTHETIC HEART VALVE REPLACEMENT 2.5 - 3.5 RECURRENT THROMBOSIS Performed By: #### P TT, PT ####[facility] [address] [place], [place] [address]Ex. Jessica Mccall PT Coag (PPP) [Time] 10.6 s Normal 9.0-11.6 [facility] Comment on above: Performed By: #### P TT, PT ####[facility] [address] [place], [place] [address]Ay. Jessica Mccall PTTon 05-28-2022 aPTT Coag (Bld) [Time] 25.5 s Normal 22.3-36.2 [facility] Comment on above: Performed By: #### P TT, PT ####[facility] [address] [place], [place] [address]Mi. Jessica Mccall XR CHEST 2 Von 05-23-2022 XR CHEST 2 V EXAMINATION: XR CHES T 2 V HISTORY: Cough COMPARISON: No relevant comparison available. FINDINGS: LUNGS: No significant pulmonary parenchymal abnormalities. VASCULATURE: No increased pulmonary vasculature. PLEURA: No pneumothorax, effusion, or pleural thickening. CARDIAC: No cardiomegaly or cardiac silhouette abnormality. MEDIASTINUM: No visible mass or adenopathy. BONES: No fracture or visible bone lesion. OTHER: Negative. IMPRESSION: 1. Normal examination. Electronically authenticated by: JOANA HURLEY Date: 2022-05-23 12:39 Normal [facility] Physician Orderon 05-03-2022 Physician Order [id number]#1.00CD:127 Normal [facility] RAD - MRI Reporton RAD - MRI Report [id number]#[id number]:127 Normal [facility] Ambulatory Visit Summaryon 0 05-02-2022 Ambulatory Visit Summary SARAH DAMON :1995 Visit Date:05/02/2022 Ambulatory Visit Instructions Your Care Team Attending Physician - THOMAS TELLEZ, Gopal Hilton Primary Care Physician - JASS TELLEZ, Cortes Referring Physician - JASS TELLEZ, Cortes Procedures Performed Benign tumor of middle ear, Bilateral complete salpingectomy, Dilation and curettage, Dilation and curettage, Dilation and curettage, Dilation and curettage, Endometrial ablation, Lumpectomy of left breast, Perforation of ear drum, Tonsillectomy and adenoidectomy. Discharge Vitals Heart Rate (Peripheral) 76 Respiratory Rate 16 Blood Pressure 112/70 Height 170 cm Height 67 in Weight 87.4 kg Weight 192.28 lb BMI 30.24 Allergies Latex (Hives) Motrin (Edema) acyclovir (Hives) Problems Ongoing - Any problem that you are currently receiving treatment for. Anemia Bilateral fibrocystic breast disease Bipolar disorder BMI 30.0-30.9,adult Breast pain Factor VIII deficiency History of DVT (deep vein thrombosis) History of pulmonary embolism Insomnia Migraines Thrombophilia Normal [facility] Physician Referralon 022 Physician Referral [id number]:127 Normal [facility] Physician Referralon 022 Physician Referral [id number]:127 Normal [facility] MR breast BI wo/w con CADon 04-19-2022 MR breast BI wo/w con CAD [facility] [place] [address] MRI Report Signed Patient: Sarah Damon MR#: [id number] : 1995 Acct:[id number] Age/Sex: 26 / F ADM Date: 04/19/22 Loc: MR Room: Type: [facility] Attending Dr: Cortes Dsouza MD Copies to: Cortes Dsouza MD Ordering Provider: Cortes Dsouza MD Date of Service: 04/19/22 MR/MR breast BI wo/w con CAD: N63.0 BILATERAL BREAST MRI WITHOUT AND WITH INTRAVENOUS CONTRAST CLINICAL HISTORY: Left breast. Lump is increasing in size over past 18 months. COMPARISON: Outside Diagnostic mammogram and ultrasound 03/16/2022. TECHNIQUE: Multisequence, multiplanar imaging of the breasts were obtained before and after the use of IV contrast. All imaged data was reviewed using the [employer] system. The postcontrast images were subtracted and CAD mapping of the enhancement kinetics was performed. Kinetic curves were generated. 2D and 3D MIP images were also reviewed. FINDINGS: The breasts are composed of dense fibroglandular tissue with moderate background parenchymal enhancement. Left breast: In the area of palpable lump involving the upper outer quadrant of the left breast, a lobulated T2 hyperintense well-circumscribed enhancing mass is identified with biopsy clip in place measuring approximately 2.7 x 1.3 x 1.9 cm. An additional smaller similar-appearing mass is seen just inferior to this dominant mass at the approximately 3:00 position, middle depth measuring approximately 1.1 x 1.0 x 0.9 cm. Both of these masses were noted on the prior ultrasound study. No additional areas of suspicious masslike or nonmasslike enhancement. Nonspecific scattered foci are seen. No chest wall abnormality is seen. No suspicious intramammary or axillary lymph nodes. Right breast: An enhancing well-circumscribed T2 hyperintense lesion is identified involving the approximately 12:00 position of the right breast, anterior depth measuring approximately 0.8 x 0.8 x 1.0 cm. Additional smaller similar-appearing mass is also identified at 12:00 position of the right breast, posterior depth measuring approximately 0.9 x 0.5 x 0.6 cm. These likely correspond to the masses seen by ultrasound. No additional masslike or nonmasslike enhancement is seen no chest wall abnormality is noted. Nonspecific enhancing foci are identified. No suspicious intramammary or axillary nodes. MR/MR breast BI wo/w con CAD IMPRESSION: Multiple masses are noted within both breasts, largest appears to be within the palpable abnormality region within the upper outer quadrant of the left breast measuring 2.7 x 1.3 x 1.9 cm which appears to have been biopsied previously with biopsy clip in place. 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 However, given the history of enlargement , surgical consultation is recommended for possible removal. If no intervention is performed, ultrasound or MRI follow-up is recommended. RESULT CODE: 4a Suspicious Abnormality - Biopsy Low Suspicion Impression dictated by: David Murphy Jr., DPrinceOPrince04/19/2022 3:28 PM Dictation Location: [address] [address] Transcribed By: [facility] 04/19/22 1528 Dictated By: David Murphy Jr, DO 04/19/22 1511 Signed By: 04/19/22 1528 [facility] MG MAMM KEYONA DIAG W CADon MG MAMM KEYONA DIAG W CAD Patient: SARAH DAMON Exam Date: 03/16/2022 : 1995 Gender:F Ordering : DR CORTES DSOUZA . Admission #: [id number] Family : Order #: [id number] CLICK HERE TO VIEW EXAM RADIOLOGY REPORT PROCEDURE: MAMMOGRAM BILATERAL DIAGNOSTIC DIGITAL WITH COMPUTER AIDED DETECTION, 03/16/2022, 12:25 ULTRASOUND BREAST BILATERAL LIMITED, 03/16/2022, 13:04 COMPARISON: US BREAST KEYONA LIMITED, 09/01/2021. MAMMO POST BIOPSY BILATERAL, 09/13/2021. MG MAMM DIAGNOSTIC 3D KEYONA CAD, 09/01/2021. INDICATIONS: Fibrocystic changes of bilateral breasts Calculator Name NCI Breast Cancer Risk Assessment Tool 5 Year Breast Cancer Risk Not Applicable. Lifetime Breast Cancer Risk Not Applicable. Personal Breast Cancer No Personal Ovarian Cancer No Treatments None Family Cancers Grandmother-maternal with breast cancer at age 28; Grandmother-maternal with cervical cancer at age 25. LOCATION: [facility] BREAST COMPOSITION: Extremely dense, which lowers the sensitivity of mammography. FINDINGS: DIAGNOSTIC CATEGORY 0--INCOMPLETE: NEED ADDITIONAL IMAGING EVALUATION. RIGHT BREAST: No significant suspicious finding via mammography. Ultrasound evaluation demonstrates a few oval hypoechoic nodules and a few benign-appearing lymph nodes, similar to prior study, and similar in appearance to the biopsied left breast mass which was shown to be benign. No overtly suspicious findings. LEFT BREAST: No significant suspicious finding via mammography. Ultrasound evaluation demonstrates a few oval hypoechoic nodules and a few benign-appearing lymph nodes, similar to prior study, and similar in appearance to the previously biopsied mass within the breast which was shown to be benign. The largest lesion, in the 1 previously biopsied, is 2.9 x 2.1 x 1.2 cm. Given the patient's family history of breast cancer at a young age and the multiple nonspecific breast nodules. MRI of the breasts should be considered for further evaluation. If no suspicious findings on MRI, patient should start annual screening mammography. RECOMMENDATIONS: BREAST MRI: BILATERAL BREASTS Active recommendations from prior exams: SHORT TERM FOLLOW-UP DIAGNOSTIC MAMMOGRAM BILATERAL BREASTS IN [#MONTHS] MONTHS. Due on 03/21/2022. SHORT TERM FOLLOW-UP ULTRASOUND BILATERAL BREASTS IN [#MONTHS] MONTHS. Due on 03/21/2022. PLEASE NOTE: A NORMAL MAMMOGRAM DOES NOT EXCLUDE THE POSSIBILITY OF BREAST CANCER. A CLINICALLY SUSPICIOUS PALPABLE LUMP SHOULD BE BIOPSIED. Dictated by: Joana Hurley M.D. on 03/16/2022 at 14:43 Approved by: Joana Hurley M.D. on 03/16/2022 at 14:51 Normal [facility] US BREAST KEYONA LIMITEDon 08-0 US BREAST KEYONA LIMITED Patient: SARAH DAMON Exam Date: 03/16/2022 : 1995 Gender:F Ordering : DR CORTES DSOUZA . Admission #: [id number] Family : Order #: [id number] CLICK HERE TO VIEW EXAM RADIOLOGY REPORT PROCEDURE: MAMMOGRAM BILATERAL DIAGNOSTIC DIGITAL WITH COMPUTER AIDED DETECTION, 03/16/2022, 12:25 ULTRASOUND BREAST BILATERAL LIMITED, 03/16/2022, 13:04 COMPARISON: US BREAST KEYONA LIMITED, 09/01/2021. MAMMO POST BIOPSY BILATERAL, 09/13/2021. MG MAMM DIAGNOSTIC 3D KEYONA CAD, 09/01/2021. INDICATIONS: Fibrocystic changes of bilateral breasts Calculator Name NCI Breast Cancer Risk Assessment Tool 5 Year Breast Cancer Risk Not Applicable. Lifetime Breast Cancer Risk Not Applicable. Personal Breast Cancer No Personal Ovarian Cancer No Treatments None Family Cancers Grandmother-maternal with breast cancer at age 28; Grandmother-maternal with cervical cancer at age 25. LOCATION: [facility] BREAST COMPOSITION: Extremely dense, which lowers the sensitivity of mammography. FINDINGS: DIAGNOSTIC CATEGORY 0--INCOMPLETE: NEED ADDITIONAL IMAGING EVALUATION. RIGHT BREAST: No significant suspicious finding via mammography. Ultrasound evaluation demonstrates a few oval hypoechoic nodules and a few benign-appearing lymph nodes, similar to prior study, and similar in appearance to the biopsied left breast mass which was shown to be benign. No overtly suspicious findings. LEFT BREAST: No significant suspicious finding via mammography. Ultrasound evaluation demonstrates a few oval hypoechoic nodules and a few benign-appearing lymph nodes, similar to prior study, and similar in appearance to the previously biopsied mass within the breast which was shown to be benign. The largest lesion, in the 1 previously biopsied, is 2.9 x 2.1 x 1.2 cm. Given the patient's family history of breast cancer at a young age and the multiple nonspecific breast nodules. MRI of the breasts should be considered for further evaluation. If no suspicious findings on MRI, patient should start annual screening mammography. RECOMMENDATIONS: BREAST MRI: BILATERAL BREASTS Active recommendations from prior exams: SHORT TERM FOLLOW-UP DIAGNOSTIC MAMMOGRAM BILATERAL BREASTS IN [#MONTHS] MONTHS. Due on 03/21/2022. SHORT TERM FOLLOW-UP ULTRASOUND BILATERAL BREASTS IN [#MONTHS] MONTHS. Due on 03/21/2022. PLEASE NOTE: A NORMAL MAMMOGRAM DOES NOT EXCLUDE THE POSSIBILITY OF BREAST CANCER. A CLINICALLY SUSPICIOUS PALPABLE LUMP SHOULD BE BIOPSIED. Dictated by: Joana Hurley M.D. on 03/16/2022 at 14:43 Approved by: Joana Hurley M.D. on 03/16/2022 at 14:51 Normal [facility] Tobacco Screening.on Fall risk assessment a) No falls within the last year [facility] [facility] Work Phone: Tobacco use status [facility] a) Yes [facility] Work Phone: Tobacco Screening. Yes [facility] [facility] Work Phone: Tobacco Screening.on Fall risk assessment a) No falls within the last year [facility] Work Phone: Tobacco use status [facility] a) Yes [facility] Work Phone: Tobacco Screening. Yes [facility] Work Phone: Tobacco Screening.on 021 Fall risk assessment a) No falls within the last year [facility] [facility] Work Phone: Tobacco use status [facility] a) Yes [facility] [facility] Work Phone: Tobacco Screening. Yes [facility] [address] Work Phone: Order Reconciliationon 07-03 Order Reconciliation Page 1 Discharge Reconciliation Document Reconciliation Type: Discharge requested on behalf of Aurelia Tovar (Resident) done by Aurelia Tovar ( (Resident)) Discharge - Reconciliation: 03-Jul-2021 13:34 by: Aurelia Tovar ( (Resident)) Discharge - Reset to Incomplete: 03-Jul-2021 15:12 by: Aurelia Tovar ( (Resident)) Discharge - Reconciliation: 03-Jul-2021 15:17 by: Aurelia Tovar ( (Resident)) Home Medications EnteredHOME MEDICATIONS AT DISCHARGE DateReconciliation Comment/ Additional Information eletriptan 40 mg oral tablet 1 tab(s) orally once a day 03-Jul-2021 08:43 eletriptan 40 mg oral tablet 1 tab(s) orally once a day 03-Jul-2021 08:43 eletriptan 40 mg oral tablet is continued as eletriptan 40 mg oral tablet Current OrdersDateHOME MEDICATIONS AT DISCHARGE DateReconciliation Comment/ Additional Information Acetaminophen Tablet (TYLENOL)DOSE = 650 mg Oral Every 4 Hours, PRN Pain - Mild (1-3) (PACU) when able to take OralStop After 1 DosesClinician Notes: Consuelo-operative order ONLY 03-Jul-2021 09:42 Acetaminophen is not required HYDROmorphone Injectable (DILAUDID)DOSE = 0.2 mg IntraVenous Push Every 5 Minutes, PRN Pain - Mod (4-6) (PACU) if unable to take oralClinician Notes: Consuelo-operative order ONLYMax total of 4 mg regardless of dose. 03-Jul-2021 09:42 HYDROmorphone Injectable is not required HYDROmorphone Injectable (DILAUDID)DOSE = 0.4 mg IntraVenous Push Every 5 Minutes, PRN Pain - Severe (7-10) (PACU)Clinician Notes: Consuelo-operative order ONLYMax total of 4 mg regardless of dose. 03-Jul-2021 09:42 HYDROmorphone Injectable is not required Lactated Ringers Infusion IV Bag Volume = 1,000 mL Run at: 50 mL/hr IntraVenous Clinician Notes: Consuelo-operative order ONLY 03-Jul-2021 09:42 Lactated Ringers Infusion is not required Ondansetron Injectable (ZOFRAN)DOSE = 4 mg IntraVenous Push Once, PRN PONV, first lineClinician Notes: Consuelo-operative order ONLY 03-Jul-2021 09:42 Ondansetron Injectable is not required oxyCODONE Immediate Release Tablet (OXYIR, ROXICODONE)DOSE = 5 mg Oral Every 4 Hours, PRN Pain - Mod (4-6) (PACU) when able to take OralStop After 1 DosesClinician Notes: Consuelo-operative order ONLY 03-Jul-2021 09:42 oxyCODONE Immediate Release is not required Promethazine IV Piggy Back in Sodium Chloride 0.9% 50 mL (PHENERGAN)DOSE = 6.25 mg Once, PRN persistent PONV if first line ineffectiveRecommended Infusion Time: 15 minute(s)Clinician Notes: Consuelo-operative order ONLY 03-Jul-2021 09:42 Promethazine IV Piggy Back is not required Home Medications Added During Discharge Reconciliation traMADol 50 mg oral tablet 1 tab(s) orally every 6 hours as needed for pain not controlled with tylenol. Dx code G89.18 postoperative pain - Discontinued; Discontinue from ORM acetaminophen 500 mg oral tablet 2 tab(s) orally every 8 hours Activity as Tolerated 03-Jul-2021, Routine, Assistance Level: None, Restrictions: None Additional Patient Instructions Do not engage in sports, heavy work or lifting. Additional Patient Instructions Take tylenol for pain. For additional pain can take tramadol as needed. this may cause constipation so take stool softener as needed. Additional Patient Instructions You will need to start ear drops 1 week prior to your follow up. The preferred medication is CIPRODEX but if this is fortunato expensive then CORTISPORIN was also prescribed. You only need to use one of these as prescribed. Call Physician For: excessive bleeding (slow general oozing that completely soaks dressing or fresh bright red bleeding) or bleeding that will not stop. Apply pressure to the area and elevate. Call Physician For: signs and sypmtoms of infection Increased redness or swelling at incision site, increased pain/tenderness at surgical site, increased temperature greater than 100 degress, increasing and/or progressive drainage from surgical site, and/or unusual odor from surgical site. cephalexin 250 mg oral tablet 1 tab(s) orally 3 times a day ciprofloxacin-dexamethason e 0.3%-0.1% otic suspension 4 drop(s) in the left ear 2 times a day cyclobenzaprine 5 mg oral tablet 1 tab(s) orally 3 times a day Diet Regular Discharge Discharge Diagnosis< H90.2 Conductive hearing loss;Q16.4 Congenital cholesteatoma Discharge Provider, Lauryn Jules Discharge Disposition : .Home Condition at Discharge: Satisfactory Discharge Communication Instructions for Nursing Only: Remove IV prior to discharge from hospital. Do not remove any midline, if present, without an order from the provider. Discharge Instructions - PHR After your discharge from the hospital, two Summary of Care Documents will be available online in your Personal Health Record (PHR). 1.Consolidated-Clinical Document Architecture (C-CDA) Patient Discharge Summary This document is a summary of your hospital stay to be kept for your reference.2.C-CDA Visit (more content not included)... Normal [facility] Patient Profile - Preop v3on 07-03-2021 Patient Profile - Preop v3 Patient Profile - Preop: Initial Info: Patient DemographicsName: SARAH DAMON Date: 1995 Address: [address] [place] [address] Primary Phone [phone] How to be AddressedDarcy Spoken Language PreferredEnglish Stated Reason for Admissionleft tympanomastoidectomy and possible ossiculoplasty Primary Contact Name and NumberJames Patient Belongingsplaced in locker Medications Brought to Hospitalno General Health: Weight in kg75.5 kilogram(s) Weight in vyi749.4 pound(s) Weight Methodactual (measured) Scale Typestanding Height in feet5 feet Height in inches7 inch(es) Height in cm170.1 centimeter(s) Height Methodstated BMI (kg/m2)26.093 square meter Patient or Family Member Reaction to Anesthesiano previous reaction Blood Avoidance/Restrictionsnone Previous Transfusion Reactionno Health Mgmt: Symptoms/Conditions Managed at Homesee significant events Are You no Are You Currently Breastfeedingno Barriers to Managing Healthnone Relationship/Environ: Lives Withspouse Living Arrangementshouse Resource/Environmental Concernsnone Anticipated Transition Tocebolla Services Anticipated at Transitionnone Tobacco Use: Tobacco Useyes Tobacco Typecigarettes Last Tobacco [id number] Number of Packs per Day1 Pre-op Checklist: Procedure Typeleft tympanomastoidectomy NPOyes Last Clear Fluid [id number] 00:00 ID Band On Patientpatient ID (name), allergy Consent Signedpending H&P Completepending Anesthesia Assessment Completedpending EKG Performednot ordered Chest X-Ray Performednot ordered Preop Antibioticsnot ordered Type and Screen Resultedn/a HCG Urine TestComplete Chlorhexadine Bath Givennot applicable Soap and Water Bath the Night Before Surgerynot applicable Hair Washed with Shampoonot applicable SCD's Appliedsent to OR MYA Hose Appliednot ordered Bowel Prepno Additional Information: Information Review: Allergies, Home Meds and Significant Events have been Reviewed and Verified with Patient/Familyyes Electronic Signatures: Shelby Strauss) (Signed 03-Jul-2021 08:46) Authored: Initial Info, General Health, Health Mgmt, Relationship/Environ, Tobacco Use, Pre-op Checklist, Additional Information Last Updated: 03-Jul-2021 08:46 by Shelby Strauss) Normal [facility] Surgical Pathology Depar tmenton 07-03-2021 [facility] Surgical Pathology Department Name DAMON SARAH Eda Pathologist: Daniela Novak MD, Ph.D. Date of Procedure: 07/03/2021 Date Received: 07/03/2021 Date Reported 07/10/2021 Submitting Physician: LAURYN JULES M.D. Location: [facility] Other External # FINAL DIAGNOSIS LEFT MASTOID CONTENTS: --CHOLESTEATOMA Electronically Signed Out By Daniela Novak MD, Ph.D./MAC By the signature on this report, the individual or group listed as making the Final Interpretation/Diagnosis certifies that they have reviewed this case. Clinical History: Physician Contact Number: [id number] Fixative (A): Saline Clinical Diagnosis History LEFT CHRONIC OTITIS MEDIA, LEFT CONDUCTIVE HEARING LOSS, LEFT CHOLESTEATOMA Specimens Submitted As: A: LEFT MASTOID CONTENTS Gross Description: Received in formalin, labeled with the patient's name and number and left mastoid contents , is a segment of camargo-white, friable soft tissue measuringt 2.7 x 1.7 x 1.4 cm. The specimen is sectioned and entirely submitted in 3 cassettes. ARIANNAN cjn/07/05/[address] [facility] Department of Pathology [address] [place] [address] Normal [facility] Comment on above: Performed By: #### [facility] #### [facility] Surgical Pathology Department [address] [place] [address] CORONAVIRUS 2019, SCREEN ASY MPTOMATICon 07-01-2021 SARS-CoV-2 (COVID-19) RNA SCOTT+probe Ql (Unsp spec) Not detected Normal Not Detected [facility] Comment on above: Result Comment: . This assay is designed to detect the N, ORF1ab and/or S genes of SARS-CoV-2 via nucleic acid amplification. A Negative (NOT DETECTED) result does not preclude 2019-nCoV infection since the adequacy of sample collection and/or low viral burden may result in presence of viral nucleic acids below the clinical sensitivity of this test method. Negative (NOT DETECTED) result should not be used as the sole basis for treatment or other patient management decisions. Rather negative results should be combined with clinical observations, patient history, and epidemiological information to make patient management decisions. Fact sheet for providers: https://www.fda.gov/media/101367/download Fact sheet for patients: https://www.fda.gov/media/332914/download This test has received FDA Emergency Use Authorization (EUA) and has been verified by [facility] ([facility]). This test is only authorized for the duration of time that circumstances exist to justify the authorization of the emergency use of in vitro diagnostic tests for the detection of SARS-CoV-2 virus and/or diagnosis of COVID-19 infection under section 564(b)(1) of the Act, 21 U.S.C. 360bbb-3(b)(1), unless the authorization is terminated or revoked sooner. [facility] is certified under CLIA-88 as qualified to perform high complexity testing. Testing is performed in the [facility] laboratories located at [address] [place] [address]. Performed By: #### C OV[facility] #### [facility] [id number] [place] [address] Lab Specimen Source Nasal, Nasopharyngeal Normal [facility] Comment on above: Performed By: #### C OVSC #### [place] [address] Coronavirus 2019 RNA by PCR, Screening Asymptomticon 07-01-2021 Coronavirus 2019 RNA by PCR, Screening Asymptomtic Not detected Normal See Below [facility] Work Phone: Comment on above: SOURCE: Nasal, Nasop haryngealReference Range: Not Detected.This assay is designed to detect the N, ORF1ab and/or S genes of SARS-CoV-2 via nucleic acid amplification. A Negative (NOT DETECTED) result does not preclude 2019-nCoV infection since the adequacy of sample collection and/or low viral burden may result in presence of viral nucleic acids below the clinical sensitivity of this test method. Negative (NOT DETECTED) result should not be used as the sole basis for treatment or other patient management decisions. Rather negative results should be combined with clinical observations, patient history, and epidemiological information to make patient management decisions.Fact sheet for providers: https://www.fda.gov/media/608354/downloadFact sheet for patients: https://www.fda.gov/media/707342/downloadThis test has received FDA Emergency Use Authorization (EUA) and has been verified by [facility] ([facility]). This test is only authorized for the duration of time that circumstances exist to justify the authorization of the emergency use of in vitro diagnostic tests for the detection of SARS-CoV-2 virus and/or diagnosis of COVID-19 infection under section 564(b)(1) of the Act, 21 U.S.C. 360bbb-3(b)(1), unless the authorization is terminated or revoked sooner. [facility] is certified under CLIA-88 as qualified to perform high complexity testing. Testing is performed in the [facility] laboratories located at [address] [place] [address]. Covid 19 Resultson 1 SARS-CoV-2 (COVID-19) RNA SCOTT+probe Ql (Unsp spec) NEGATIVE COVID-19 Test Coronaviruses are common world-wide and are the cause of many common colds. SARS-COV2 is a new coronavirus that began circulating worldwide in 2019 so we are calling it COVID-19. It has been estimated that four out of five patients with COVID-19 will recover at home without the need for medical attention. Symptoms of COVID-19 may include cough, fever, shortness of breath, loss of taste or smell and other flu-like symptoms including chills, sore muscles, sore throat, and headache. Severe illness is more common in older people and people with other health problems such as high blood pressure, obesity, and immune system problems. If the test is positive, you have COVID-19. You will be contacted by the ordering physicians office and instructed to remain on home isolation, in accordance with CDC guidelines. You may also be contacted by the [facility] to see if any of your close contacts may have been exposed to the virus and need to quarantine. If the test is negative, you likely do not have COVID-19 at this time, but you still may have a different illness that can spread to other people (like Influenza, or the Flu) and could still be at risk for getting COVID-19. We recommend that you stay away from other people to limit the spread of illness until your symptoms are improving and you are fever-free for 24 hours without the use of fever lowering medications such as acetaminophen or ibuprofen. No test is 100% accurate so if you are still concerned you may have COVID-19, talk to your doctor about the need to continue to stay away from others. Medicines Unless your provider told you not to use the following: Acetaminophen (Tylenol and others) is generally safe. Anti-inflammatory medications, such as Ibuprofen (Advil or Motrin) or Naproxen (Aleve) can also be used. Prkv-twu-iqaoiis cough and cold medicines can be used according to the instructions on the package. Some cvqi-wad-tyeklmy medicines also contain acetaminophen. Make sure you are not taking more than your recommended dose. For those not hospitalized, there is no specific treatment available for this illness. Antibiotics do not treat Coronaviruses. Follow-Up Follow up with your doctor by scheduling a virtual visit or consider follow-up at one of our urgent care fever clinics. If you are having difficulty breathing, or are very weak and having difficulty standing, this is a medical emergency. Call 911 or have someone take you to the nearest emergency room immediately. If possible, wear a facemask. Additional guidance from the CDC for patients who tested POSITIVE for COVID-19 How to isolate: Isolate yourself in a specific room at home and limit your contact with others. Use a separate bathroom from other members of the household, when possible. Leave home only to get essential medical care. Do not go to work, school or public areas. Avoid using public transportation, ride-sharing, or taxis. Restrict contact with pets and other animals. If you must care for your pet or be around animals while you are sick, wash your hands before and after your interaction and wear a facemask. Make sure that shared spaces in the home have good airflow, such as by an air conditioner or an opened window, weather permitting. Personal Hygiene Procedures: Wear a face mask when in the same room as other people or pets. If a face mask interferes with your breathing, others should wear a mask when sharing space with you. Frequent hand-washing: wash your hands with soap and water for at least 20 seconds. If soap and water are not available, use alcohol-based hand supervisor housecleaner. Avoid touching your eyes, nose, and mouth with unwashed hands. Household Hygiene Procedures: Avoid sharing personal household items such as dishes, glassware, cups, eating utensils, towels or bedding with other people or pets in your home. After use, these items should be washed with soap and hot water. Disinfect all high-touch surfaces every day with antibacterial cleaning solutions such as Lysol wipes, bleach, cleansers, etc. High-touch surfaces include tabletops, doorknobs, bathroom fixtures, toilets, phones, keyboards, tablets and bedside tables. Immediately clean any surfaces that may have blood, poop or body fluids on them, using antibacterial cleaning solutions such as Lysol wipes, bleach, cleansers, etc. If clothing or bedding come into contact with blood, poop or body fluids, they should be washed immediately. Follow the directions on the laundry detergent and clothing labels but hot water is recommended when possible. Stopping home isolation precautions: If possible, consult your doctor before stopping home isolation precautions. According to the CDC, you can discontinue home isolation precautions when you have met both of these criteria: Your fever and respiratory symptoms have been gone for 24 genesis (more content not included)... Normal [facility] Tobacco Screening.on 021 Fall risk assessment c) Not medically indicated [facility] [facility] Work Phone: Tobacco use status [facility] a) Yes [facility] Work Phone: SCAPULA RIGHTon 09-28-2019 SCAPULA RIGHT [facility] Department of Radiology [address] [place] [id number] Patient Name: SARAH DMAON : 1995 Sex: F Age: Race: White Pt. Location: Patient Status: Ordered Date: 09/28/2019 4:10:00 PM Completed Date: 09/28/2019 04:12 PM Requesting Provider: JOSÉ MIGUEL PRUITT Attending Provider: Report Copy To: Signs & Symptoms: M25.511 Pain in right shoulder I10 History: Carleen Comments: , , , Ordering Provider - JOSÉ MIGUEL PRUITT MD , Exam: SCAPULA RIGHT SHOULDER RIGHT, SCAPULA RIGHT 09/28/2019 3:58 PM SIGNS AND SYMPTOMS: M25.511 Pain in right shoulder I10 TECHNOLOGIST COMMENTS: pt states having pain in the right shoulder area QUESTION FOR THE RADIOLOGIST: , , , Ordering Provider - JOSÉ MIGUEL PRUITT MD , PROTOCOL: AP,Grashey and Axillary views were obtained. (accession [id number]), AP(PA) and Lateral views were obtained. (accession [id number]) COMPARISON: None FINDINGS: Soft tissues: Intact Bones: Slight offset at the AC joint may indicate AC joint sprain Joints: Glenohumeral joint is intact IMPRESSION: No fracture Presumed AC joint sprain Electronically signed: Justin Katz. Transcribed by: [email or web address], User Resident: Electronically Signed by: JUSTIN KATZ @ 09/28/2019 04:28 PM Normal [facility] Comment on above: Order Comment: , , = ========= , Ordering Provider - JOSÉ MIGUEL PRUITT MD , SHOULDER RIGHTon 09-28-2019 SHOULDER RIGHT [facility] Department of Radiology [address] [place] [id number] Patient Name: SARAH DAMON : 1995 Sex: F Age: Race: White Pt. Location: Patient Status: Ordered Date: 09/28/2019 3:50:00 PM Completed Date: 09/28/2019 03:58 PM Requesting Provider: JOSÉ MIGUEL PRUITT Attending Provider: Report Copy To: Signs & Symptoms: M25.511 Pain in right shoulder I10 History: Carleen Comments: , , , Ordering Provider - JOSÉ MIGUEL PRUITT MD , Exam: SHOULDER RIGHT SHOULDER RIGHT, SCAPULA RIGHT 09/28/2019 3:58 PM SIGNS AND SYMPTOMS: M25.511 Pain in right shoulder I10 TECHNOLOGIST COMMENTS: pt states having pain in the right shoulder area QUESTION FOR THE RADIOLOGIST: , , , Ordering Provider - JOSÉ MIGUEL PRUITT MD , PROTOCOL: AP,Grashey and Axillary views were obtained. (accession [id number]), AP(PA) and Lateral views were obtained. (accession [id number]) COMPARISON: None FINDINGS: Soft tissues: Intact Bones: Slight offset at the AC joint may indicate AC joint sprain Joints: Glenohumeral joint is intact IMPRESSION: No fracture Presumed AC joint sprain Electronically signed: Justin Katz. Transcribed by: [email or web address], User Resident: Electronically Signed by: JUSTIN KATZ @ 09/28/2019 04:28 PM Normal [facility] Comment on above: Order Comment: , , = ========= , Ordering Provider - JOSÉ MIGUEL PRUITT MD , Vital Signs Date Time Vital Sign Value Performing Clinician Facility 08-14-2023 11:57-0500 Diastolic blood pressure 76 mm[Hg] [facility] 08-14-2023 11:57-0500 Systolic blood pressure 118 mm[Hg] Irving Taylor DO Work Phone: [facility] 01-25-2023 08:59-0400 Body height 171.45 cm Shola Cowan Work Phone: [facility] [place] Work Phone: 01-25-2023 08:59-0400 Body mass index (BMI) [Ratio] 29.54 kg/m2 Shola P [employer] Work Phone: [facility] [place] Work Phone: 01-25-2023 08:59-0400 Body surface area Derived from formula 2 m2 Shola P [employer] Work Phone: [facility] [place] Work Phone: 01-25-2023 08:59-0400 Body weight 86.82 kg Shola P [employer] Work Phone: [facility] [place] Work Phone: 02-01-2022 14:10-0400 Body height 170.18 cm Shola P [employer] Work Phone: [facility] [place] Work Phone: 02-01-2022 14:10-0400 Body mass index (BMI) [Ratio] 28.51 kg/m2 Shola P [employer] Work Phone: [facility] [place] Work Phone: 02-01-2022 14:10-0400 Body surface area Derived from formula 1.94 m2 Shola P [employer] Work Phone: [facility] [place] Work Phone: 02-01-2022 14:10-0400 Body temperature 98.9 [degF] Shola P [employer] Work Phone: [facility] [place] Work Phone: 02-01-2022 14:10-0400 Body weight 82.56 kg Shola P [employer] Work Phone: [facility] [place] Work Phone: 02-01-2022 14:10-0400 0 1 Shola P House Work Phone: [facility] Work Phone: Comment on above: [employer] 09-20-2021 16:08-0500 Body height 171.45 cm Shola P House Work Phone: [facility] [place] Work Phone: 09-20-2021 16:08-0500 Body mass index (BMI) [Ratio] 27.07 kg/m2 Shola P House Work Phone: [facility] [place] Work Phone: 09-20-2021 16:08-0500 Body surface area Derived from formula 1.92 m2 Shola P House Work Phone: [facility] [place] Work Phone: 09-20-2021 16:08-0500 Body temperature 97.9 [degF] Shola P House Work Phone: [facility] [place] Work Phone: 09-20-2021 16:08-0500 Body weight 79.56 kg Shola P House Work Phone: [facility] [place] Work Phone: 07-28-2021 13:31-0500 Body height 171.45 cm Shola P House Work Phone: [facility] [place] [facility] Work Phone: 07-28-2021 13:31-0500 Body mass index (BMI) [Ratio] 26.68 kg/m2 Shola P House Work Phone: [facility] [place] [facility] Work Phone: 07-28-2021 13:31-0500 Body surface area Derived from formula 1.91 m2 Shola P House Work Phone: [facility] [place] [facility] Work Phone: 07-28-2021 13:31-0500 Body temperature 97.2 [degF] Shola P House Work Phone: [facility] [place] [facility] Work Phone: 07-28-2021 13:31-0500 Body weight 78.43 kg Shola P House Work Phone: [facility] [place] [facility] Work Phone: 05-04-2021 14:21-0400 Body height 171.45 cm Shola P House Work Phone: [facility] [place] Work Phone: 05-04-2021 14:21-0400 Body mass index (BMI) [Ratio] 26.08 kg/m2 Shola P House Work Phone: [facility] [place] Work Phone: 05-04-2021 14:21-0400 Body surface area Derived from formula 1.89 m2 Shola P House Work Phone: [facility] [place] Work Phone: 05-04-2021 14:21-0400 Body temperature 97 [degF] Shola P House Work Phone: [facility] [place] Work Phone: 05-04-2021 14:21-0400 Body weight 76.66 kg Shola P House Work Phone: [facility] [place] Work Phone: Encounters Encounter Date Encounter Type Care Provider Facility Start: 11-12-2023 End: 11-13-2023 ambulatory SHOLA COWAN [facility] Start: 11-12-2023 End: 11-13-2023 ambulatory SHOLA P HOUSE Facility:[facility] Start: 09-18-2023 Telephone encounter Jeni Mckeon MA [facility] Start: 08-14-2023 End: 08-14-2023 ambulatory IRVING TAYLOR [facility] Start: 08-14-2023 End: 08-14-2023 Office outpatient visit 15 minutes Irving Taylor DO Work Phone: [facility] Comment on above: Post-op pain (Primar y Dx); Dyspareunia, female; STEFAN (stress urinary incontinence, female) Start: 08-08-2023 Telephone encounter Kalen hansen MD Work Phone: [facility] Start: 07-29-2023 End: 07-30-2023 ambulatory Gerald Barnes MD Facility:[facility] Start: 07-23-2023 End: 07-24-2023 ambulatory SHOLA P CHAPO Facility:[facility] Start: 06-11-2023 End: 06-12-2023 ambulatory SHOLA P CHAPO Facility:[facility] Start: 05-31-2023 End: 06-01-2023 ambulatory SHOLA P CHAPO Facility:[facility] Start: 01-25-2023 Office outpatient vi sit 25 minutes Shola Cowan Work Phone: [facility] [place] Work Phone: Start: 11-28-2022 End: 11-29-2022 ambulatory Joana Hurley Facility:[facility] Start: 10-10-2022 End: 10-10-[address] KALA SHEEHAN . Facility:[facility] Start: 08-29-2022 End: 08-30-[address] CORTES DSOUZA . Facility:[facility] Start: 06-26-2022 End: 06-27-2022 ambulatory Gopal MACHADO Facility:[facility] Start: 06-26-2022 End: 06-26-2022 Patient encounter procedure Gopal MACHADO General Surgery Nill/[facility] Start: 06-06-2022 Encounter for preprocedural laboratory examination DR GOPAL MACHADO . [facility] Start: 06-06-2022 End: 06-07-2022 ambulatory Joana Hurley Facility:[facility] Start: 06-02-2022 End: 06-03-[address] GOPAL MACHADO . Facility:[facility] Start: 06-02-2022 End: 06-03-2022 Encounter for preprocedural laboratory examination DR GOPAL MACHADO . Facility:[facility] Start: 05-30-2022 Encounter for preprocedural cardiovascular examination DR GOPAL MACHADO . [facility] Start: 05-30-2022 Encounter for preprocedural laboratory examination DR GOPAL MACHADO . [facility] Start: 05-28-2022 End: 05-29-[address] GOPAL MACHADO . Facility:[facility] Start: 05-28-2022 End: 05-29-2022 Encounter for preprocedural cardiovascular examination DR GOPAL MACHADO . Facility:[facility] Start: 05-23-2022 End: 05-24-[address] SHOLA COWAN Facility: Start: 05-02-2022 End: 05-03-2022 ambulatory Cortes DSOUZA Facility:[facility] Start: 04-27-2022 ambulatory Cortes DSOUZA Facilit y:[facility] Start: 04-19-2022 End: 04-19-2022 ambulatory Shola Cowan Facility:[facility] Start: 04-19-2022 End: 04-19-2022 Patient encounter procedure DO Shola Cowan Work Phone: [facility] [place] Start: 04-06-2022 End: 04-06-[address] ARIANNA Morrison Facility:[facility] Start: 03-16-2022 End: 03-17-[address] CORTES DSOUZA . Facility:[facility] Start: 02-01-2022 Office outpatient vi sit 15 minutes Shola Cowan Work Phone: [facility] Work Phone: Start: 09-20-2021 Office outpatient vi sit 15 minutes Shola Cowan Work Phone: [facility] Work Phone: Start: 08-07-2021 Chart Update Shola Freed Hous e Work Phone: [facility] Work Phone: Start: 07-28-2021 Postop follow up vis it related to original px Shola Cowan Work Phone: [facility] [address] Work Phone: Start: 07-09-2021 Chart Update Shola Arias e Work Phone: [facility] [place] Work Phone: Start: 05-04-2021 Office outpatient ne w 45 minutes Shola Cowan Work Phone: [facility] Work Phone: Procedures Date Procedure Procedure Detail Performing Clinician Start: 08-14-2023 Follow-up visit Follow-up IRVING TAYLOR Start: 03-06-2023 Adult depression screening assessment Kalen Sandoval MD Work Phone: Start: 06-06-2022 Excision of fibroadenoma of breast Hal BYRDL Start: 04-19-2022 MRI of bilateral breasts with contrast DO Shola Cowan Work Phone: 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) Gopal NILL Bilateral complete salpingectomy Gopal NILL Colonoscopy Gopal NILL Colonoscopy Gopal NILL Dilation and curettage Hal reynaga NILL Dilation and curettage Hal reynaga NILL Endometrial ablation Gopal NILL Esophagogastroduodenoscopy M ortiz NILL Fallopian tube excision Robert aesiddharth NILL Lumpectomy of breast Shola Cowan Work Phone: Lumpectomy of breast Gopal NILL Lumpectomy of left breast Joanne kuo NILL Perforation of tympa artie membrane (disorder) Gopal NILL Tonsillectomy Gopal NILL Tonsillectomy and adenoidectomy Gopal NILL Plan of Treatment Date Care Activity Detail Author Start: 08-14-2024 Tobacco Screening Tobacco Screening [facility] Start: 07-09-2024 Adult BMI Screening Adult BMI Screen ing [facility] Start: 06-29-2024 Tobacco Screening Tobacco Screening [facility] Start: 03-06-2024 Adult BMI Follow Up Plan Adult BMI Follow Up Plan [facility] Start: 03-06-2024 [facility] Start: 09-10-2023 End: 09-10-2023 Patient encounter procedure 09/10/2023 1:30 PM EST Office Visit [facility] [address] [facility] [place] [address] Irving Taylor DO [address] [place], [place] [id number] [facility] Start: 08-30-2023 End: 08-30-2023 Patient encounter procedure 08/30/2023 9:30 AM EST Office Visit [facility] [address] [place] [address] Gregor Harmon MD [address] [place] [address] [facility] Start: 08-16-2023 End: 01-05-2024 Patient encounter procedure 08/16/2023 9:30 AM EST Office Visit [facility] [address] [place] [address] Kalen Sandoval MD [address] [facility] [address] [place] [address] [facility] Start: 04-12-2023 Influenza vaccination Influenza Vacc ine [facility] Start: 12-29-2021 FUV, Provider: Lauryn Jules, Status: Pen, Time: 11:30 AM FUV, Provider: Lauryn Jules, Status: Pen, Time: 11:30 AM [id number] Work Phone: Start: 09-20-2021 FUV, Provider: Lauryn Jules, Status: Pen, Time: 3:45 PM FUV, Provider: Lauryn Jules, Status: Pen, Time: 3:45 PM [id number]-[id number] n [id number] Work Phone: Start: 07-28-2021 POV, Provider: Lauryn Jules, Status: Pen, Time: 1:30 PM POV, Provider: Lauryn Jules, Status: Pen, Time: 1:30 PM [id number]-[id number] [facility] Work Phone: Start: 2012 DTaP,Tdap and Td Vaccines (1 - Tdap) DTaP,Tdap and Td Vaccines (1 - Tdap) [facility] Start: 1993 Tobacco Counseling Tobacco Counselin g [facility] Immunizations Immunization Date Immunization Notes Care Provider Fa cility NEGATED: Highlighted row has not occurred!10-02-2019 influenza virus vaccine, live, attenuated, for intranasal use Gopal MACHADO [facility] Payers Date Payer Category Payer Self-pay [id number] 2003 Medicaid [id number] 1993 Unknown [id number] [id number] 1993 Unknown [id number] 2.16.840.1.389831.3.579.2.727 1993 Unknown [id number] 2.16.840.1.686785.3.579.2.593 1993 Unknown [id number] 2.16.840.1.436170.3.579.2.593 1993 Unknown [id number] 2.16.840.1.701918.3.579.2.593 1993 Unknown [id number] 2.16.840.1.795568.3.579.2.593 1993 Unknown [id number] 2.16.840.1.816570.3.579.2.593 1993 Unknown [id number] 2.16.840.1.844529.3.579.2.593 1993 Unknown [id number] 2.16.840.1.174900.3.579.2.593 1993 Unknown [id number] 2.16.840.1.860214.3.579.2.593 1993 Unknown [id number] 2.16.840.1.058871.3.579.2.593 1993 Unknown [id number] 2.16.840.1.562281.3.579.2.727 1993 Unknown [id number] 2.16.840.1.849751.3.579.2.727 1993 Unknown [id number] 2.16.840.1.340572.3.579.2.727 1993 Unknown [id number] 2.16.840.1.498019.3.579.2.1286 1993 Unknown [id number] 2.16.840.1.063270.3.579.2.718 1993 Unknown [id number] 2.16.840.1.007655.3.579.2.718 1993 Unknown [id number] 2.16.840.1.604742.3.579.2.718 1993 Unknown [id number] 2.16.840.1.075772.3.579.2.718 1993 Unknown [id number] 2.16.840.1.037430.3.579.2.718 1993 Unknown [id number] 2.16.840.1.281699.3.579.2.1286 1959 Medicaid [id number] Unknown [facility] Unknown [id number] [id number] Social History Date Type Detail Facility Start: 09-05-2020 End: 06-07-2023 Smokes cigarettes Smokes cigarettes [facility] Start: 09-06-2021 End: 08-14-2023 Tobacco smoking status NHIS Ex-smoker (finding) [facility] Start: 1995 Sex Assigned At Female F [facility] Start: 05-02-2022 Tobacco smoking status Heavy t obacco smoker (finding) [facility] Tobacco smoking status Never [facility] [place] Start: 09-05-2020 End: 06-30-2023 Sex Assigned At Female [facility] Start: 06-07-2023 [facility] End: 06-20-2023 History of tobacco use Cigarette Smoker [facility] Start: 06-07-2023 End: 08-14-2023 Tobacco use and exposure Smokeless tobacco non-user [facility] Start: 06-30-2023 End: 08-14-2023 Alcohol intake Ex-drinker (finding) [facility] Start: 1993 Sex Assigned At Not on file P [facility]: 06-20-2023 History of tobacco use Current smoker [facility] Goals Date Patient Goal Desired Activity /State Personal health goal Comment on above: Formatting of this n ote might be different from the original. Evaluation of progress towards goal: home w family support Clinical Notes 07-03-2021 to 09-18-2023 Telephone Encounter - Jeni Mckeon MA - 09/18/2023 10:35 AM ESTTelephone Encounter - Jeni Mckeon MA - 09/18/2023 10:35 AM Shania Taylor DO - 08/14/2023 11:45 AM EST Note Date & Type Note Facility 09-18-2023 Miscellaneous Notes Called patient and left voicemail requesting a call back to reschedule missed appointment with Dr. Harmon. documented in this encounter [facility] 09-18-2023 Telephone encounter Note Called patient and left voicemail requesting a call back to reschedule missed appointment with Dr. Harmon. [facility] 08-14-2023 History of Presen t illness Narrative Subjective Patient ID: Sarah Kelley is a 27 y.o. female who is here today for a postoperative visit. Patient had a vaginal hysterectomy performed by Dr. Sandoval in June with an incidental cystotomy that was subsequently repaired by Urology in [place]. Patient reports that she is able to void without difficulties now, however she continues to have daily pelvic pain and bladder spasm. Patient reports that she did resume intercourse as she was given the clearance to do so on August 12, but does have severe pain with intercourse. She reports that unless she takes gabapentin and her chokes her she has not able to tolerate in course. She does state that the choking is a normal part of intercourse for them, but has never been required and able to enjoy intercourse in the past. She also has concerns with completely emptying her bladder when she coughs or sneezes. She states that prior to the surgery she would lose a few drops of urine with sneezing or coughing, but now will lose complete control. Chief Complaint: Stress urinary incontinence, pain with intercourse, continued pelvic pain Menstrual History: OB History 4 Para 3 Term 1 AB 1 Living 2 SAB 1 IAB Ectopic Multiple Live Births 2 Patient's last menstrual period was 06/15/2023. The following portions of the patient's history were reviewed and updated as appropriate: allergies, current medications, past family history, past medical history, past social history, past surgical history, problem list, and medication reconciliation was completed including current medication and post discharge medication. Review of Systems Constitutional: negative Respiratory: negative Cardiovascular: negative Behavioral/Psych: negative Endocrine: negative Genitourinary: Pain with intercourse, continued bladder spasms, stress urinary incontinence Objective BP 118/76 LMP 06/15/2023 General: alert, appears stated age, and cooperative Heart: regular rate and rhythm, S1, S2 normal, no murmur, click, rub or gallop Lungs: clear to auscultation bilaterally Abdomen: soft, non-tender, without masses or organomegaly Assessment 1. Post-op pain 2. Dyspareunia, female 3. STEFAN (stress urinary incontinence, female) Plan 1. Did provide 1 refill for Flexeril as patient does complain of continued bladder spasm 2. Advised patient to by [id number] lubricant to see if that will diminish her pain with intercourse. Also discussed that if she is having pain with intercourse she may need to back off and allow her body more time to heal. Also discussed changing positions to allow her more controlled during intercourse. 3. Pelvic floor physical therapy consult placed for the new onset stress urinary incontinence postoperatively 4. Will have patient follow-up in 4 weeks to see how she is doing documented in this encounter [employer] 08-08-2023 Miscellaneous Notes Called and spoke to pt about needing to r/s with another provider due to Dr. Sandoval being on a leave of absence. Pt asked if she could just be seen by her other email designer for her post op. I told her if they were ok with seeing her for post op that was fine to give us a call back letting us know. I told her she needed to be seen for her 6wk post either with her other email designer or with one of our providers in office. documented in this encounter [facility] 08-08-2023 Telephone encounter Note Called and spoke to pt about needing to r/s with another provider due to Dr. Sandoval being on a leave of absence. Pt asked if she could just be seen by her other email designer for her post op. I told her if they were ok with seeing her for post op that was fine to give us a call back letting us know. I told her she needed to be seen for her 6wk post either with her other email designer or with one of our providers in office. [facility] 06-06-2022 Note OPERATIVE NOTE OPERATION DATE: 06/06/2022 PREOPERATIVE DIAGNOSIS: Enlarging fibroadenoma of the left breast with increased breast pain. POSTOPERATIVE DIAGNOSIS: Enlarging fibroadenoma of the left breast with increased breast pain. PROCEDURE: Excisional biopsy of left upper outer quadrant fibroadenoma, needle localized. SURGEON: Gopal Machado M.D. ANESTHESIA: General with laryngeal mask airway. ESTIMATED BLOOD LOSS: Less than 3 mL. 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 She has had previous one excised from the left breast. She has had an enlarging one in the left upper outer quadrant at the 1 o'clock position, has had increased pain, also has history of fibrocystic disease. She does wish to have excision of the fibroadenoma. Understands this may not alleviate her pain. Indications, risks, benefits, alternatives of proceeding with excisional biopsy under general anesthesia, needle localized, were explained extensively to the patient, including the risks of bleeding, infection, scarring and pain, recurrent, need for further surgery or anesthetic complications. All of her questions were answered. Informed consent was obtained. PROCEDURE: Patient brought to the operating room, placed in the supine position. She had previously undergone ultrasound guided needle localization in Radiology. General anesthesia was induced. She was prepped and draped in the usual sterile fashion. A curvilinear incision was made in the left upper outer quadrant medial to the wire and carried down to the subcutaneous tissue using sharp dissection as well as electrocautery. The wire was then brought out into the center of the field. The fibroadenoma was palpable at this point. A silk stitch was placed for retraction. It was then excised circumferentially around the area of the wire using electrocautery. The specimen was marked with a short stitch superior and a long stitch laterally. The area was carried down below the tip of the wire, and the specimen was then sent off to Pathology. The wound was irrigated. There was good hemostasis. The subcutaneous tissue was re-approximated with interrupted 3-0 Monocryl suture. The skin was then closed with a running 4-0 subcuticular Monocryl suture and skin glue. Sterile pressure dressing was applied. Sponge and needle counts were correct x2 per nursing personnel. Patient tolerated procedure well, was extubated and sent to recovery room in good condition. CC: Shola Cowan M.D. [facility] 05-04-2022 Note Chief Complaint consultation for breast pain HPI Staff 26 year old female presents on consultation from Dr. Dsouza for left breast pain. Has been experiencing intermittent pain for one month. Pain is worse when breast is not supported. Denies skin changes or nipple inversion. Reports two week history of yellow/white nipple discharge. Mammogram/US completed 09/01/21 cat 4 bilateral breast. US guided biopsies completed 09/13/21- left breast- fibroadenoma, right breast- PASH. Mammogram/US completed 03/16- cat 0 with recommended MRI which was completed 04/30. History of Present Illness 26 yo female with h/o bipolar disorder, migraine headaches, bilateral fibrocystic disease, h/o fibroadenomas, now referred for severe left breast pain; began 1 month ago, worse went breast not supported, feels pulling, sharp pain; throughout breast, relieved with compression of the breast; no injury to area, no skin or nipple changes, no nipple discharge; had mammogram and US done in 08/2021; had enlarging fibroadenoma left upper outer quadrant; and lesion in right breast, underwent bilateral breast biopsies; left bx consistent with fibroadenoma; right with fibrocystic changes and PASH; f/u mammogram and US 03/2022; recommended MRI; [place] [facility] [place] 2.9 cm fibroadenoma noted in left upper outer quadrant; clip in place from previous bx; recommend excision due to increase size, but only increased by .2 cm; patient does drink several caffeine drinks daily; smokes 1 ppd; reportedly patient's maternal grandmother with breast cancer at age 28; no fmhx of ovarian cancer. patient had removal of left breast fibroadenoma 03/[address] Trivedi; would like this left upper outer quadrant fibroadenoma removed as well. Review of Systems PHQ Score Initial Depression Screen Score: 0 ROS - Provider Constitutional: no fever, no sweats, no weight loss. Eyes: no glasses, no blurred vision, no visual loss. ENMT: no dentures, no hoarseness, no swallowing difficulties, no hearing loss, no ear infection(s), no nose bleeds. Cardiovascular: normal blood pressure, no chest pain, regular heartbeat, no heart murmur. Respiratory: no shortness of breath, no cough, no asthma, no wheezing. Gastrointestinal: no nausea, no vomiting, no diarrhea, no constipation, no blood in stool, no change in bowel habits, no abdominal pain, no hepatitis. Genitourinary: no kidney stones, no urine infection, no dysuria. Musculoskeletal: yes pain, no weakness. Skin: no changing moles, no rash, no skin lumps. Neurologic: no seizures, no epilepsy, yes headache. Psychiatric: yes emotional or psychiatric problem. Heme/Lymph: no bleeding problems, no anemia, no blood clots, no transfusions. Allergy/Immunologic: no swollen lymph nodes/glands, no IV drug abuse. Other: Additional ROS info: Except as noted in the above Review of Systems and in the History of Present Illness, all other systems have been reviewed and are negative or noncontributory. Physical Exam Vitals & Measurements HR: 76(Peripheral) RR: 16 BP: 112/70 HT: 67 in HT: 170 cm WT: 87.4 kg WT: 192.28 lb BMI: 30.24 HEENT: normal conjunctiva, sclera clear, no scleral icterus, EOM intact, PERRLA. oral mucosa moist without lesions Neck: trachea midline , no mass, symmetric, no thyromegaly or nodules. no adenopathy Respiratory: lungs CTA, respirations non labored. Cardiovascular: regular rate and rhythm, no murmur, , no pedal edema or varicosities. Chest (Breasts): symmetric, no discharge, well healed left breast scar; areas of dense breast tissue bilaterally; patient would not allow palpation of left breast due to tenderness; very subjective pain/tenderness; no skin changes, no nipple changes or retraction, no discharge Gastrointestinal: soft, non distended, no tenderness, no masses, no palpable hernias, diastasis recti no, no hepatosplenomegaly. normal bs Lymphatic: no cervical adenopathy, no axillary adenopathy, no supraclavicular adenopathy Musculoskeletal: normalgait, digits and nails without infection, nodes, cyanosis, clubbing. Skin: no rashes, no lesions, no ulcers, no subcutaneous nodules, induration. Psychiatric/Neuro: oriented to time, place, person, judgement normal, affect anxious, insight intact, no focal deficits. Tests: , x-rays reviewed, review of old records completed, Discussed surgical options, risks, and possible complications with patient. Assessment/Plan 1. Fibroadenoma of left breast (D24.2: Benign neoplasm of left breast) plan excisional biopsy under anesthesia; needle localized; for definitive diagnosis and treatment; I did explain in detail to the patient that her pain is not typical of fibroadenoma pain and is out of proportion to her exam and xray findings; this may be caused by previous scar tissue or fibrocystic disease; removal of the fibroadenoma is unlikely to improve this pain; she understands and wants to proceed; informed consent obtained; recommend quitting tobacco use and minimizing caffeine. 2. Bilateral fibro (more content not included)... [facility] Comment on above: Result Comment: Elec tronically Signed By: THOMAS TELLEZ, Gopal Cordoba\Date and Time Signed: 05/04/22 16:53 EDT 05-04-2022 Note Chief Complaint consultation for breast pain HPI Staff 26 year old female presents on consultation from Dr. Dsouza for left breast pain. Has been experiencing intermittent pain for one month. Pain is worse when breast is not supported. Denies skin changes or nipple inversion. Reports two week history of yellow/white nipple discharge. Mammogram/US completed 09/01/21 cat 4 bilateral breast. US guided biopsies completed 09/13/21- left breast- fibroadenoma, right breast- PASH. Mammogram/US completed 03/16- cat 0 with recommended MRI which was completed 04/30. History of Present Illness 26 yo female with h/o bipolar disorder, migraine headaches, bilateral fibrocystic disease, h/o fibroadenomas, now referred for severe left breast pain; began 1 month ago, worse went breast not supported, feels pulling, sharp pain; throughout breast, relieved with compression of the breast; no injury to area, no skin or nipple changes, no nipple discharge; had mammogram and US done in 08/2021; had enlarging fibroadenoma left upper outer quadrant; and lesion in right breast, underwent bilateral breast biopsies; left bx consistent with fibroadenoma; right with fibrocystic changes and PASH; f/u mammogram and US 03/2022; recommended MRI; [place] [facility] [place] 2.9 cm fibroadenoma noted in left upper outer quadrant; clip in place from previous bx; recommend excision due to increase size, but only increased by .2 cm; patient does drink several caffeine drinks daily; smokes 1 ppd; reportedly patient's maternal grandmother with breast cancer at age 28; no fmhx of ovarian cancer. patient had removal of left breast fibroadenoma 03/[address] Trivedi; would like this left upper outer quadrant fibroadenoma removed as well. Review of Systems PHQ Score Initial Depression Screen Score: 0 ROS - Provider Constitutional: no fever, no sweats, no weight loss. Eyes: no glasses, no blurred vision, no visual loss. ENMT: no dentures, no hoarseness, no swallowing difficulties, no hearing loss, no ear infection(s), no nose bleeds. Cardiovascular: normal blood pressure, no chest pain, regular heartbeat, no heart murmur. Respiratory: no shortness of breath, no cough, no asthma, no wheezing. Gastrointestinal: no nausea, no vomiting, no diarrhea, no constipation, no blood in stool, no change in bowel habits, no abdominal pain, no hepatitis. Genitourinary: no kidney stones, no urine infection, no dysuria. Musculoskeletal: yes pain, no weakness. Skin: no changing moles, no rash, no skin lumps. Neurologic: no seizures, no epilepsy, yes headache. Psychiatric: yes emotional or psychiatric problem. Heme/Lymph: no bleeding problems, no anemia, no blood clots, no transfusions. Allergy/Immunologic: no swollen lymph nodes/glands, no IV drug abuse. Other: Additional ROS info: Except as noted in the above Review of Systems and in the History of Present Illness, all other systems have been reviewed and are negative or noncontributory. Physical Exam Vitals & Measurements HR: 76(Peripheral) RR: 16 BP: 112/70 HT: 67 in HT: 170 cm WT: 87.4 kg WT: 192.28 lb BMI: 30.24 HEENT: normal conjunctiva, sclera clear, no scleral icterus, EOM intact, PERRLA. oral mucosa moist without lesions Neck: trachea midline , no mass, symmetric, no thyromegaly or nodules. no adenopathy Respiratory: lungs CTA, respirations non labored. Cardiovascular: regular rate and rhythm, no murmur, , no pedal edema or varicosities. Chest (Breasts): symmetric, no discharge, well healed left breast scar; areas of dense breast tissue bilaterally; patient would not allow palpation of left breast due to tenderness; very subjective pain/tenderness; no skin changes, no nipple changes or retraction, no discharge Gastrointestinal: soft, non distended, no tenderness, no masses, no palpable hernias, diastasis recti no, no hepatosplenomegaly. normal bs Lymphatic: no cervical adenopathy, no axillary adenopathy, no supraclavicular adenopathy Musculoskeletal: normalgait, digits and nails without infection, nodes, cyanosis, clubbing. Skin: no rashes, no lesions, no ulcers, no subcutaneous nodules, induration. Psychiatric/Neuro: oriented to time, place, person, judgement normal, affect anxious, insight intact, no focal deficits. Tests: , x-rays reviewed, review of old records completed, Discussed surgical options, risks, and possible complications with patient. Assessment/Plan 1. Fibroadenoma of left breast (D24.2: Benign neoplasm of left breast) plan excisional biopsy under anesthesia; needle localized; for definitive diagnosis and treatment; I did explain in detail to the patient that her pain is not typical of fibroadenoma pain and is out of proportion to her exam and xray findings; this may be caused by previous scar tissue or fibrocystic disease; removal of the fibroadenoma is unlikely to improve this pain; she understands and wants to proceed; informed consent obtained; recommend quitting tobacco use and minimizing caffeine. 2. Bilateral fibro (more content not included)... [facility] Comment on above: Result Comment: Elec tronically Signed By: THOMAS TELLEZ, Gopal Cordoba\Date and Time Signed: 05/04/22 16:53 EDT 07-03-2021 Note PROCEDURE DETAILS Preoperative Diagnosis: 1. Left chronic otitis media with cholesteatoma 2. Left conductive hearing loss. Postoperative Diagnosis: 1. Left chronic otitis media with cholesteatoma 2. Left conductive hearing loss. 3. Congenital cholesteatoma Surgeon: Nona Resident/Fellow/Other Cracking Machine Operator: Guy Procedure: 1. Left intact canal wall tympanoplasty with mastoidectomy with removal of cholesteatoma and ossiculoplasty. 2. Intraoperative facial nerve monitoring. 3. Microsurgical dissection techniques requiring use of operating microscope. Anesthesia: general Estimated Blood Loss: 10 Findings: see operative report Specimens(s) Collected: yes, left mastoid content Complications: none Implants: 2.5 mm [employer] precise central PORP Patient Returned To/Condition: PACU/stable Operative Report: PRE-OPERATIVE DIAGNOSIS: Left chronic otitis media with acquired cholesteatoma Left conductive hearing loss. POST-OPERATIVE DIAGNOSIS: Left chronic otitis media with acquired cholesteatoma Left conductive hearing loss. Congenital cholesteatoma PROCEDURE: Left intact canal wall tympanoplasty with mastoidectomy with removal of cholesteatoma and ossiculoplasty. Intraoperative facial nerve monitoring. Microsurgical dissection techniques requiring use of operating microscope. SURGEON: Lauryn Jules MD PHOTO MASK PROCESSOR SURGEON: Aurelia Tovar MD ANESTHESIA: General with endotracheal intubation ESTIMATED BLOOD LOSS: 10 mL HISTORY: This patient was referred for management of left chronic otitis media with cholesteatoma. She has a significant past otological history of previous tympanostomy tubes placement as a child, tympanoplasty and repair of a bony canal erosion with cartilage. She presented for work-up of frontal headache and migraine and was noticed to have incidentally a erosive lesion of her left mastoid. Physical examination confirmed the presence of a tympanoplasty with cartilage graft. Audiometric evaluation revealed a left-sided conductive hearing loss. The HRCT of the temporal bone showed a cholesteatoma like-lesion in the affected ear without erosion of the ossicles or radiographic evidence of labyrinthine fistula. Based on these findings, treatment options were discussed in length explaining the pathology, possible recidivism and hearing outcomes. The possibility of a two-staged procedure and deferred ossiculoplasty was discussed. The patient was offered tympanomastoid surgery with the primary goal to eradicate his cholesteatoma and achieve a safe and dry ear. The risks, alternatives and benefits were all discussed. The risks outlined included but were not limited to bleeding, surgical site infection, hearing loss, dizziness, tinnitus, taste disturbance, recurrent disease, graft failure and facial paralysis. The patient agreed to proceed with the planned operations. OPERATIVE FINDINGS: Examination of the tympanic membrane and middle ear revealed: tympanosclerosis and areas of thin tympanic membrane. A cartilage graft reconstructed the posterior canal wall and extended onto the tympanic membrane. The malleus was medialized. No perforations or skin pearls were seen. Examination of the mastoid revealed: An intact canal wall tympanomastoid approach without facial recess dissection was performed in order to achieve total removal of macroscopic cholesteatoma. The cholesteatoma appeared to arise from within the mastoid cavity and extended to involve the cortical bone but spared the bony ear canal. There was a 2 x1.5 cm area of sigmoid sinus dehiscence and 1 cm area with thinning of the adventitia. Assessment of the ossicles revealed a remaining handle and lateral process of the malleus which were medialized and remaining stapes with some erosion of the capitulum. The incus appears to have been previously resected and a prosthesis was in place and was removed. Ossicular chain reconstruction was performed with a 2.5 mm HarQen precise central PORP. The chorda tympani was intact. The facial nerve was intact. The tegmen was intact. Reconstruction of the tympanic membrane reconstruction was done using the prior cartilage and Biod[employer]. OPERATIVE PROCEDURE: The patient was evaluated in the pre-operative area. The correct site of surgery was marked, and the informed consent was signed. The patient was taken to the operative suite and laid on the operating table. A time out was performed according to the protocol. After induction of anesthesia, endotracheal intubation was done. Intraoperative intravenous antibiotics were administered. The table was tilted 180 degrees and the surgical site was exposed. An appropriate amount of hair was clipped from the post-auricular region. The electrodes of the facial nerve monitoring system were inserted percutaneously in their corresponding position and adequate functioning of the system was confirmed. The (more content not included)... [facility] 07-03-2021 History of Presen t illness Narrative Post-op visitHistory of present illness:The patient is presenting for their first post-op visit following tympanoplasty with mastoidectomy with removal of cholesteatoma and ossiculoplasty on 07/03/2021. Overall, pain is adequately control, and they deny significant imbalance, or discharge from the surgical ear. She states her hearing has improved since surgery.Physical Examination:Site is healing well. Packing was removedThere are no signs to suggest an infection.Surgical pathology = cholesteatomaImpression:Chronic otitis mediaConductive hearing lossLeft mastoid cholesteatoma, ? congenitalPlan:-Start on ear drops-Maintain dry ear precautions. Schedule a follow up in 5-10 days.By signing my name below, I, Walker Hassanibe, attest that this documentation has been prepared under the direction and in the presence of Dr. Lauryn Jules. All medical record entries made by the Scribe were at my direction and personally dictated by me. I have reviewed the chart and agree that the record accurately reflects my personal performance of the history, physical exam, discussion, and plan. YW-Yjkivqghjfsxix-Wstvv [facility] Work Phone: 07-03-2021 Note History of Present I llness: /Lactating: Are You no (1) Are You Currently Breastfeedingno (1) History Present Illness: Reason for surgery: mastoid lesion HPI: -HPI: 25 y.o left mastoid lesion. This patient has a significant past otological history of previous tympanostomy tubes placement as a child, tympanoplasty and repair of a bony canal erosion with cartilage. She presented for work-up of frontal headache and migraine and was noticed to have incidentally a erosive lesion of her left mastoid. MRI and HRCT were obtained. She denies any left-sided otalgia but + occasional fullness and sensation that water is moving in her left ear and occasional discharge. She also has diminished hearing. -PMH: Depression, migraine -Meds: amitriptyline, clarithromycin, eletriptan, neomycin-polymyxin, prednisone, propranolol -All: acyclovir, motrin -Social: +tobacco and alcohol use Allergies: Allergies: acyclovir: Hives/Urticaria Motrin: Hives/Urticaria Latex: Hives/Urticaria Home Medication Review: Home Medications Reviewed: yes Impression/Procedure: Impression and Planned Procedure: Left Tympanomastidectomy, poss OCR ERAS (Enhanced Recovery After Surgery): ERAS Patient: no Vital Signs: Temperature C: 36.1 degrees C Temperature F: 96.9 degrees F Heart Rate: 91 beats per minute Respiratory Rate: 16 breath per minute Blood Pressure Systolic: 119 mm/Hg Blood Pressure Diastolic: 72 mm/Hg Physical Exam by System: Respiratory/Thorax: nonlabored Cardiovascular: regular rate Consent: COVID-19 Consent: COVID-19 Risk ConsentSurgeon has reviewed meneses risks related to the risk of jerod COVID-19 and if they contract COVID-19 what the risks are. Attestation: Note Completion: Electronic Signatures: Aurelia Tovar (Resident)) (Signed 03-Jul-2021 09:22) Authored: History of Present Illness, Allergies, Home Medication Review, Impression/Procedure, ERAS, Physical Exam, Consent, Note Completion Lauryn Jules) (Signed 11-Jul-2021 14:25) Authored: Note Completion Co-Signer: History of Present Illness, Allergies, Home Medication Review, Impression/Procedure, ERAS, Physical Exam, Consent, Note Completion Last Updated: 11-Jul-2021 14:25 by Lauryn Jules) References: 1. Data Referenced From Patient Profile - Preop v3 03-Jul-2021 08:42 [facility] Evaluation + Plan note No data available for this section General Surgery [place] Evaluation note No assessment inform ation available [facility] Work Phone: Evaluation note Diagnosis Post-op pain- Primary Other acute postoperative pain Dyspareunia, female STEFAN (stress urinary incontinence, female) [facility] History of present illness: * Ms. Damon is a 25 years old female who is referred by Dr. Carley العلي for evaluation and management of a left mastoid lesion. This patient has a significant past otological history of previous tympanostomy tubes placement as a child, tympanoplasty and repair of a bony canal erosion with cartilage. She presented for work-up of frontal headache and migraine and was noticed to have incidentallya erosive lesion of her left mastoid. MRI and HRCT were obtained. She was referred for further management and evaluation. She denies any left-sided otalgia but admits to occasional fullness and sensation that water is moving in her left ear and occasional discharge. She also has diminished hearing in the left ear and has an audiogram available to review. * The patient s current medications, active allergies and list of medical problems were reviewed in the EHR and confirmed electronically. * Physical Examination: * CONSTITUTIONAL: No acute distress * VOICE: No hoarseness or other abnormality * RESPIRATION: Breathing comfortably, no stridor * CV: No clubbing/cyanosis/edema in hands * EYES: EOM intact, sclera clear * NEURO: Alert and oriented times 3, Cranial nerves II-XII grossly intact and symmetric bilaterally * HEAD AND FACE: Symmetric facial features, no masses or lesions * RIGHT EAR: Normal external ear and post auricular area, no visible lesions, external auditory canalpatent, tympanic membrane intact, retracted with monomeric changes and myringosclerosis. No evidence of effusion or infection. No obvious cholesteatoma. * LEFT EAR: Normal external ear and post auricular area, no visible lesions, external auditory canal patent with evidence of cartilage graft along the posterior wall., tympanic membrane intact, retracted posteriorly, malleus is medialized, unable to clearly visualize a long process of the incus. No vi sible cholesteatoma. * NOSE: Deferred due to Covid-19 pandemic. * ORAL CAVITY/OROPHARYNX/LIPS: Deferred due to Covid-19 pandemic. * PHARYNGEAL HERNANDEZ: Deferred due to Covid-19 pandemic. * NECK/LYMPH: No LAD, no thyroid masses, trachea midline * SKIN: Neck and facial skin is without scar or injury * PSYCH: Alert and oriented with appropriate mood and affect * Diagnostic testing: * Audiometric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
--- NOTE | 2025-04-01 17:59 | ED_ITS ---
HPI - Abdominal Pain General Chief Complaint: Abdominal Pain Stated Complaint: abdominal pain Time Seen by Provider: 04/01/25 17:48 Source: patient Mode of arrival: walk-in Limitations: no limitations History of Present Illness HPI narrative: The patient is a 29-year-old female who has a history of hysterectomy that was complicated with a bladder perforation is coming to the ER with a periumbilical pain and suprapubic pain that started 3 days ago, pain was complicated by nausea and vomiting this morning and it is getting worse associated with constipation The patient last bowel movement was 3 days ago and she did eat today at noon and that she had episode of vomiting after that Related Data Previous Rx's ?Medication ?Instructions ?Recorded hydrocodone 5 mg-acetaminophen 325 1 tab PO Q6H PRN pa in 5 days #20 09/28/23 mg tablet tabs lidocaine 5 % topical patch 1 patch topical DAILY PRN pain #15 09/28/23 (Lidoderm) ea ciprofloxacin HCl 500 mg tablet 500 mg PO Q12H #14 tab s 06/11/24 hydrocodone 5 mg-acetaminophen 325 1 tab PO Q6H PRN pa in 2 days #8 06/11/24 mg tablet tabs ondansetron 4 mg disintegrating 4 mg PO Q6H PRN nausea and 06/11/24 tablet vomiting #12 tabs promethazine 25 mg tablet 25 mg PO Q6H PRN nausea and 06/11/24 vomiting #12 tabs Allergies Allergy/AdvReac Type Severity Reaction Status Date / Time acyclovir Allergy Severe Hives Verified 03/25/23 16:16 ibuprofen (From Motrin) Allergy Severe Hives Verified 03/25/23 16:16 latex Allergy Severe Hives Verified 03/25/23 16:16 Review of Systems ROS Status of ROS 10 or more systems reviewed and unremark able except as noted in history and below PFSH PFS Social History Smoking status: Current every day smoker Little interest or pleasure in doing things: not at all Feeling down, depressed, or hopeless: not at all Exam Narrative Exam Narrative: Nurses notes and vital signs reviewed and patient is not hypoxic. General: Well-appearing and in no apparent distress. Skin: Warm, dry, no pallor noted. No rash. Head: Normocephalic, atraumatic. Neck: Supple, non-tender. Cardiovascular: Regular Rate and Rhythm without murmur, gallop or rub. Respiratory: No accessory muscle use or respiratory distress. Lungs are clear to auscultation, no wheezing, rales or rhonchi Chest Wall: no tenderness Back: No midline thoracic or lumbar vertebral tenderness. No CVA tenderness Musculoskeletal: normal ROM, no calf or popliteal tenderness, no lower e xtremity edema/swelling GI: Abdomen soft and distended mostly in the lower abdomen in addition to tenderness upon palpation of the suprapubic area as well as the periumbilical area Neurological: A&O x4. No cranial nerve dysfunction observed. Constitutional Vital Signs, click to edit/add: Last Vital Signs Temp 98.9 F 04/01/25 17:41 Pulse 101 H 04/01/25 17:41 Resp 20 04/01/25 17:41 BP 163/100 H 04/01/25 17:41 Pulse Ox 99 04/01/25 17:41 O2 Del Method Room Air 04/01/25 17:41 Course Vital Signs Vital signs: Vital Signs Temperature 98.9 F 04/01/25 17:41 Pulse Rate 101 H 04/01/25 17:41 Respiratory Rate 20 04/01/25 17:41 Blood Pressure 163/100 H 04/01/25 17:41 Pulse Oximetry 99 04/01/25 17:41 Oxygen Delivery Method Room Air 04/01/25 17:41 Temperature 98.9 F 04/01/25 17:41 Pulse Rate 101 H 04/01/25 17:41 Respiratory Rate 20 04/01/25 17:41 Blood Pressure 163/100 H 04/01/25 17:41 Pulse Oximetry 99 04/01/25 17:41 Oxygen Delivery Method Room Air 04/01/25 17:41 MDM - Abdominal Pain MDM Narrative Medical decision making narrative: The patient CBC showed no leukocytosis And the chemistry shows elevated lactic acid 2.4 the patient was provided IV fluid initially because she was tachycardic And the she also had a CT abdomen and pelvis with contrast ordered and pending Patient treated with morphine and Zofran The patient care will be transferred to Dr. Gill awaiting the results of the CAT scan Lab Data Labs: Lab Results 04/01/25 04/01/25 Range/Units 17:50 18:00 WBC 10.2 (4.0-11.0) 10^3/uL RBC 4.84 (4.20-5.40) 10^6/uL Hgb 14.2 (12.0-16.0) g/dL Hct 41.5 (36.0-48.0) % MCV 85.7 (81.0-99.0) fL MCH 29.3 (26.7-34.0) pg MCHC 34.2 (29.9-35.2) g/dL RDW 12.6 (11.0-15.0) % Plt Count 228 (150-450) 10^3/uL MPV 11.1 (9.5-13.5) fL Neut % (Auto) 61.7 (43.0-75.0) % Lymph % (Auto) 29.5 (20.5-60.0) % [place] % (Auto) 6.2 (1.7-12.0) % Eos % (Auto) 1.9 (0.9-7.0) % Baso % (Auto) 0.4 (0.2-2.0) % Neut # (Auto) 6.3 (1.4-6.5) 10^3/uL Lymph # (Auto) 3.0 (1.2-3.8) 10^3/uL [place] # (Auto) 0.6 (0.3-0.8) 10^3/uL Eos # (Auto) 0.2 (0.0-0.7) 10^3/uL Baso # (Auto) 0.0 (0.0-0.1) 10^3/uL Abs Immat Gran (auto) 0.03 (0.00-0.03) 10^3/uL Imm/Tot Granulo (auto) 0.3 (0.0-0.5) % Sodium 139 (136-145) mmol/L Potassium 3.4 L (3.5-5.1) mmol/L Chloride 105 (98-107) mmol/L Carbon Dioxide 24.7 (21.0-32.0) mmol/L Anion Gap 12.7 BUN 8.0 (7.0-18.0) mg/dL Creatinine 1.05 H (0.55-1.02) mg/dL Est GFR ( Amer) >60 (>=60 mL/min/1.73m^2) Est GFR (Non-Af Amer) >60 (>=60 mL/min/1.73m^2) BUN/Creatinine Ratio 7.6 Glucose 102 (74-106) mg/dL Lactate 2.4 H* (0.4-2.0) mmol/L Calcium 8.5 (8.5-10.1) mg/dL Total Bilirubin 0.3 (0.2-1.0) mg/dL AST 18 (15-37) U/L ALT 28 (14-59) U/L Alkaline Phosphatase 97 (46-116) U/L Total Protein 7.6 (6.4-8.2) g/dL Albumin 3.9 (3.4-5.0) g/dL Globulin 3.7 g/dL Albumin/Globulin Ratio 1.1 Urine Color Lt. yellow (YELLOW) Urine Clarity Sl cloudy (CLEAR) Urine pH 6.0 (5.0-9.0) Ur Specific [place] 1.025 (1.005-1.025) Urine Protein Negative (NEG/TRACE) mg/dL Urine Glucose (UA) Negative (NEGATIVE) mg/dL Urine Ketones Negative (NEGATIVE) mg/dL Urine Occult Blood Negative (NEGATIVE) Urine Nitrite Positive A (NEGATIVE) Urine Bilirubin Negative (NEGATIVE) Urine Urobilinogen 1.0 (0.2-1.0) EU/dL Ur Leukocyte Esterase Negative (NEGATIVE) Discharge Plan Discharge Patient Disposition: Still a Patient
[2025-04-01 18:08] LABS: Hematocrit 41.5 % (36.0-48.0); Hemoglobin 14.2 g/dL (12.0-16.0); Immature Granulocytes Abs Auto 0.03 10^3/uL (0.00-0.03); Immature Granulocytes Pct Auto 0.3 % (0.0-0.5); Lymphocytes Absolute Auto 3.0 10^3/uL (1.2-3.8); Mean Corpuscular HGB Conc 34.2 g/dL (29.9-35.2); Mean Corpuscular Hemoglobin 29.3 pg (26.7-34.0); Mean Corpuscular Volume 85.7 fL (81.0-99.0); Platelet Count 228 10^3/uL (150-450); Red Blood Count 4.84 10^6/uL (4.20-5.40); White Blood Count 10.2 10^3/uL (4.0-11.0)
[2025-04-01] MEDS: MORPHINE SULFATE 2 MG/ML SYRINGE IV (18:11)
[2025-04-01] MEDS: 0.9 % SODIUM CHLORIDE 1,000 ML 1000 ML IV ×2 (18:11→19:23)
[2025-04-01 18:22] LABS: Glucose Urine UA NEGATIVE (NEGATIVE)
[2025-04-01 18:29] LABS: Alanine Aminotransferase 28 U/L (14-59); Albumin Globulin Ratio 1.1; Albumin Level 3.9 g/dL (3.4-5.0); Alkaline Phosphatase 97 U/L (46-116); Anion Gap 12.7; Aspartate Amino Transferase 18 U/L (15-37); Blood Urea Nitrogen 8.0 mg/dL (7.0-18.0); Calcium 8.5 mg/dL (8.5-10.1); Carbon Dioxide 24.7 mmol/L (21.0-32.0); Chloride 105 mmol/L (98-107); Estimated GFR (African America >60 (>=60 mL/min/1.73m^2); Estimated GFR (Non-African Ame >60 (>=60 mL/min/1.73m^2); Globulin 3.7 g/dL; Glucose 102 mg/dL (74-106); Potassium 3.4 mmol/L (3.5-5.1); Sodium 139 mmol/L (136-145); Total Protein 7.6 g/dL (6.4-8.2)
[2025-04-01 18:36] LABS: Lactate/Lactic Acid 2.4 mmol/L (0.4-2.0)
--- NOTE | 2025-04-01 18:40 | CT_ITS ---
The [address] [address] Patient Name: SARAH GARCIA MRN: [id number] date: 1995 Sex: F Assigned Patient Location: ED.MAIN Current Patient Location: ED.MAIN Accession/Order Number: [id number] Exam Date: 04/01/2025 19:36 Report Date: 04/01/2025 20:05 At the request of: RADHA ELISE MD Procedure: CT abdomen pelvis w con CT Abdomen and Pelvis withcontrast TECHNIQUE: Axial imaging with 2-D reconstruction.1 cc of Omni 300. The CT exam was performed using one or more the following dose reduction techniques: Automated exposure control, adjustment of the MA and/or Kv according to patient size, or use of the iterative reconstruction technique. COMPARISON: 06/11/2024 History: Abdominal pain. Vomiting. LIMITATIONS: None LOWER THORAX Unremarkable LIVER: Small hepatic cyst redemonstrated. No biliary duct dilatation. GALLBLADDER: No gallbladder abnormality identified. BILE DUCTS: No dilatation SPLEEN: Unremarkable PANCREAS: Unremarkable ADRENAL GLANDS: Unremarkable KIDNEYS:Unremarkable AORTA: No abdominal aortic aneurysm identified. RETROPERITONEUM: No significant retroperitoneal abnormalities identified. MESENTERY:Unremarkable STOMACH:Unremarkable SMALL BOWEL: The small bowel loops are nondistended. APPENDIX: The appendix is normal. COLON: Unremarkable URINARY BLADDER: Urinary bladder is unremarkable. REPRODUCTIVE SYSTEM: 4.9 cm left ovarian cyst. Hysterectomy. PNEUMOPERITONEUM: None PERITONEAL FLUID:Trace low-density pelvic fluid BONY STRUCTURES: Unremarkable ABDOMINAL WALL: Unremarkable CT/CT abdomen pelvis w con IMPRESSION: 4.9 cm left ovarian cyst. Trace low-density free fluid. No bowel obstruction. Impression dictated by: Aubrey Rebolledo M.D. 04/01/2025 8:05 PM Dictation Location: [employer] Electronically authenticated by: [id number] Y Date: 04/01/2025 20:05
[2025-04-01 18:43] LABS: Cast Seen? NONE SEEN #/LPF (NONE SEEN); Crystals Seen? None Seen #/HPF (None Seen)
[2025-04-01 18:44] LABS: Urine Culture Indicated YES-FRMC
[2025-04-01 19:06] VITALS: BP 154/107; PULSE 90; O2SAT 100
[2025-04-01] MEDS: HYDROMORPHONE HCL 1 MG/ML CARTRIDGE IV (20:11)
--- NOTE | 2025-04-01 20:20 | US_ITS ---
The [address] [address] Patient Name: SARAH GARCIA MRN: [id number] date: 1995 Sex: F Assigned Patient Location: ER Current Patient Location: ER Accession/Order Number: [id number] Exam Date: 04/01/2025 20:30 Report Date: 04/01/2025 22:01 At the request of: KALA SHEEHAN MD Procedure: US pelvis transvaginal Transabdominal and transvaginal pelvic ultrasound HISTORY: Abdominal pain. Left ovarian cyst with CT examination. Assessment for torsion. Uterus absent. Right ovary measures 3.3 x 1.6 x 2.4 cm with resistive index of 0.44. Left ovary measures 5.2 x 3.6 x 4.4 cm with resistive index of 0.45. The contents complex cyst measuring 4.6 x 3.4 x 3.8 cm. Fluid present within the left adnexal region. US/US pelvis transvaginal IMPRESSION: Complex 4.6 cm cystic lesion of the left ovary. Consistent with hemorrhagic cyst. Small amount of free fluid adjacent to the left adnexal region. May represent subtle rupture. Adequate blood flow. No torsion. No active bleeding. Impression dictated by: Aubrey Rebolledo M.D. 04/01/2025 10:01 PM Dictation Location: [place] [address] Electronically authenticated by: [id number] Y Date: 04/01/2025 22:01
--- NOTE | 2025-04-01 20:21 | ED.ABDPAIN1 ---
HPI - Abdominal Pain General Chief Complaint: Abdominal Pain Stated Complaint: abdominal pain Time Seen by Provider: 04/01/25 17:48 Source: patient Mode of arrival: walk-in Limitations: no limitations History of Present Illness HPI narrative: This 29-year-old female status post hysterectomy with complication of bladder perforation at the time of her hysterectomy presents for evaluation of abdominal pain with nausea and vomiting. She was signed out to me at shift change. She requested something additional for pain after being given morphine initially. I ordered her morphine but she refused the morphine stating that if I would not give her Dilaudid she would not take anything for pain. I reviewed her labs. She has normal white count and hemoglobin. Electrolytes are normal. Lactic acid is minimally elevated. CT scan of the abdomen pelvis was ordered. It is negative for bowel obstruction but shows a 4.9 cm left ovarian cyst. This was discussed with the patient. She is still having pain despite being given Dilaudid. Ultrasound is available at this time and an ultrasound of the abdomen pelvis was ordered to rule out torsion. Ultrasound shows a 4.6 cm hemorrhagic cyst in the left ovarian area with a small amount of free fluid in the adnexa with possible mild rupture. There was no sign of torsion noted. The results of these findings were discussed with the patient. She is stable for discharge at this time. She will be discharged home with a Percocet and Zofran. Prescription for Percocet and Zofran will be forward to her pharmacy. She is allergic to NSAIDs so ibuprofen and Toradol are not indicated at this time. 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 Related Data Previous Rx's ?Medication ?Instructions ?Recorded hydrocodone 5 mg-acetaminophen 325 1 tab PO Q6H PRN pain 5 days #20 09/28/23 mg tablet tabs lidocaine 5 % topical patch 1 patch topical DAILY PRN pain #15 09/28/23 (Lidoderm) ea ciprofloxacin HCl 500 mg tablet 500 mg PO Q12H #14 tabs 06/11/24 hydrocodone 5 mg-acetaminophen 325 1 tab PO Q6H PRN pain 2 days #8 06/11/24 mg tablet tabs ondansetron 4 mg disintegrating 4 mg PO Q6H PRN nausea and 06/11/24 tablet vomiting #12 tabs promethazine 25 mg tablet 25 mg PO Q6H PRN nausea and 10/31/24 vomiting #12 tabs Allergies Allergy/AdvReac Type Severity Reaction Status Date / Time acyclovir Allergy Severe Hives Verified 03/25/23 16:16 ibuprofen (From Motrin) Allergy Severe Hives Verified 03/25/23 16:16 latex Allergy Severe Hives Verified 03/25/23 16:16 [facility] Social History Smoking status: Current every day smoker Little interest or pleasure in doing things: not at all Feeling down, depressed, or hopeless: not at all Exam Constitutional Vital Signs, click to edit/add: Last Vital Signs Temp 98.9 F 04/01/25 17:41 Pulse 90 04/01/25 19:06 Resp 20 04/01/25 19:06 BP 154/107 H 04/01/25 19:06 Pulse Ox 100 04/01/25 19:06 O2 Del Method Room Air 04/01/25 19:06 Course Vital Signs Vital signs: Vital Signs Temperature 98.9 F 04/01/25 17:41 Pulse Rate 101 H 04/01/25 17:41 Respiratory Rate 20 04/01/25 17:41 Blood Pressure 163/100 H 04/01/25 17:41 Pulse Oximetry 99 04/01/25 17:41 Oxygen Delivery Method Room Air 04/01/25 17:41 Temperature 98.9 F 04/01/25 17:41 Pulse Rate 90 04/01/25 19:06 Respiratory Rate 20 04/01/25 19:06 Blood Pressure 154/107 H 04/01/25 19:06 Pulse Oximetry 100 04/01/25 19:06 Oxygen Delivery Method Room Air 04/01/25 19:06 MDM - Abdominal Pain Lab Data Labs: Lab Results 04/01/25 04/01/25 Range/Units 17:50 18:00 WBC 10.2 (4.0-11.0) 10^3/uL RBC 4.84 (4.20-5.40) 10^6/uL Hgb 14.2 (12.0-16.0) g/dL Hct 41.5 (36.0-48.0) % MCV 85.7 (81.0-99.0) fL MCH 29.3 (26.7-34.0) pg MCHC 34.2 (29.9-35.2) g/dL RDW 12.6 (11.0-15.0) % Plt Count 228 (150-450) 10^3/uL MPV 11.1 (9.5-13.5) fL Neut % (Auto) 61.7 (43.0-75.0) % Lymph % (Auto) 29.5 (20.5-60.0) % [place] % (Auto) 6.2 (1.7-12.0) % Eos % (Auto) 1.9 (0.9-7.0) % Baso % (Auto) 0.4 (0.2-2.0) % Neut # (Auto) 6.3 (1.4-6.5) 10^3/uL Lymph # (Auto) 3.0 (1.2-3.8) 10^3/uL [place] # (Auto) 0.6 (0.3-0.8) 10^3/uL Eos # (Auto) 0.2 (0.0-0.7) 10^3/uL Baso # (Auto) 0.0 (0.0-0.1) 10^3/uL Abs Immat Gran (auto) 0.03 (0.00-0.03) 10^3/uL Imm/Tot Granulo (auto) 0.3 (0.0-0.5) % Sodium 139 (136-145) mmol/L Potassium 3.4 L (3.5-5.1) mmol/L Chloride 105 (98-107) mmol/L Carbon Dioxide 24.7 (21.0-32.0) mmol/L Anion Gap 12.7 BUN 8.0 (7.0-18.0) mg/dL Creatinine 1.05 H (0.55-1.02) mg/dL Est GFR ( Amer) >60 (>=60 mL/min/1.73m^2) Est GFR (Non-Af Amer) >60 (>=60 mL/min/1.73m^2) BUN/Creatinine Ratio 7.6 Glucose 102 (74-106) mg/dL Lactate 2.4 H* (0.4-2.0) mmol/L Calcium 8.5 (8.5-10.1) mg/dL Total Bilirubin 0.3 (0.2-1.0) mg/dL AST 18 (15-37) U/L ALT 28 (14-59) U/L Alkaline Phosphatase 97 (46-116) U/L Total Protein 7.6 (6.4-8.2) g/dL Albumin 3.9 (3.4-5.0) g/dL Globulin 3.7 g/dL Albumin/Globulin Ratio 1.1 Urine Color Lt. yellow (YELLOW) Urine Clarity Sl cloudy (CLEAR) Urine pH 6.0 (5.0-9.0) Ur Specific [place] 1.025 (1.005-1.025) Urine Protein Negative (NEG/TRACE) mg/dL Urine Glucose (UA) Negative (NEGATIVE) mg/dL Urine Ketones Negative (NEGATIVE) mg/dL Urine Occult Blood Negative (NEGATIVE) Urine Nitrite Positive A (NEGATIVE) Urine Bilirubin Negative (NEGATIVE) Urine Urobilinogen 1.0 (0.2-1.0) EU/dL Ur Leukocyte Esterase Negative (NEGATIVE) Urine RBC 0-2 (0-2) #/HPF Urine WBC 2-5 A (NONE SEEN) #/HPF Ur Squamous Epith Cells Rare (NONE/RARE) #/LPF Urine Crystals None seen (None Seen) #/HPF Urine Bacteria Large A (NONE SEEN) #/HPF Urine Casts None seen (NONE SEEN) #/LPF Urine Mucus None seen (NONE SEEN) Ur Culture Indicated? Yes-[facility] [place] Discharge Plan Discharge Chief Complaint: Abdominal Pain Clinical Impression: Ovarian cyst Patient Disposition: Home, Self-Care Time of Disposition Decision: 22:17 Condition: Good Prescriptions / Home Meds: No Action hydrocodone-acetaminophen 5-325 mg tablet 1 tab PO Q6H PRN (Reason: pain) 2 Days Qty: 8 0RF Rx Instructions: DX: R10.9 ciprofloxacin HCl 500 mg tablet 500 mg PO Q12H Qty: 14 0RF promethazine 25 mg tablet 25 mg PO Q6H PRN (Reason: nausea and vomiting) Qty: 12 0RF ondansetron 4 mg tablet,disintegrating 4 mg PO Q6H PRN (Reason: nausea and vomiting) Qty: 12 0RF lidocaine [Lidoderm] 5 % adhesive patch,medicated 1 patch topical DAILY PRN (Reason: pain) Qty: 15 0RF Rx Instructions: leave near most painful area for up to 12 hrs; do not apply over the rash hydrocodone-acetaminophen 5-325 mg tablet 1 tab PO Q6H PRN (Reason: pain) 5 Days Qty: 20 0RF Print Language: Italian Instructions: Ovarian Cyst (ED) Referrals: Rios Bell DO [Physician, TELEPHONE SOLICITOR SUPERVISOR] - 1 week
--- NOTE | 2025-04-01 22:27 | PC.NURSE ---
pt calls for assistance, she has urinated herself while dry heaving in garbage can
[2025-04-01] MEDS: ONDANSETRON 4 MG RAPDIS TABLET SL (22:50)
[2025-04-01] MEDS: OXYCODONE HCL/ACETAMINOPHEN 5MG/325MG PO (22:50)
[2025-04-01 22:51] LABS: Lactate/Lactic Acid 0.6 mmol/L (0.4-2.0)
== END 2025-04-01 22:55 | disposition home or self-care (01) ==
PROVIDERS: Emergency Medicine; Emergency Provider Emergency Medicine
DX: N83.202 Unspecified ovarian cyst, left side (principal); Z90.710 Acquired absence of both cervix and uterus; F17.200 Nicotine dependence, unspecified, uncomplicated
CPT/HCPCS: 36415; 74177; 76830; 80053; 81001; 83605; 85025; 87086; 87088; 87186; 96361; 96374; 96375; 96376; 99285; J1171; J2270; J2405; Q0162; Q9967